=== PATIENT | male | born 1945 | race Caucasian/White ===

== ENCOUNTER 2017-03-02 09:26 | Emergency (ER) | payer OTHER ==
[~2017-03-02 09:26] MED LIST: LISI2.5T3 PO; METO25 PO; PERC10TA27 PO; PRIL10CA PO; SIMV5TAB32 PO; [UNRECOGNIZED DRUG - REMARK]; blood pressure; cholesterol med
[2017-03-02 09:36] VITALS: BP 160/85; PULSE 86; RESP 18; TEMP 98; O2SAT 97
[2017-03-02] MEDS ORDERED: ALBU6.7H INH (09:42)
[2017-03-02] MEDS ORDERED: SIMV10TA PO (09:42)
[2017-03-02] MEDS ORDERED: HYDR25TA5 PO (09:42)
[2017-03-02] MEDS ORDERED: ASPI81CH CHEW (09:42)
[2017-03-02] MEDS ORDERED: METO25TA3 PO (09:42)
[2017-03-02] MEDS ORDERED: SYMB160A INH (09:42)
--- NOTE | 2017-03-02 09:59 | PD ---
HPI Chief Complaint: Back/ Neck Pain or Injury Time Seen by Provider: 09:35 Travel History International Travel<30 days: No Contact w/Intl Traveler<30days: No Traveled to known affect area: No History of Present Illness HPI This patient has chronic back pain for the last 27 years. [facility] and takes oxycodone and morphine at home. He came to the ER because his back pain was aggravating him today. No acute injury. No fever or urinary complaints. Severity is moderate. PFSH Past Medical History Arthritis: Yes Autoimmune Disease: No Blood Disorders: No Heart Rhythm Problems: No Cancer: No Cardiovascular Problems: Yes High Cholesterol: Yes Chest Pain: No Congestive Heart Failure: No COPD: Yes Cerebrovascular Accident: No Diminished Hearing: No (LT EAR) Genitourinary: No Headaches: No Hypertension: Yes Musculoskeletal: No Neurologic: No Psychiatric: No Respiratory: No Myocardial Infarction: No Seizures: No Thyroid Disease: No Tetanus Vaccination: < 5 Years Influenza Vaccination: Yes PNEUMOCCOCAL Vaccine (Year): 2 Past Surgical History Abdominal Surgery: No AICD: No Cardiac Surgery: No Ear Surgery: No Endocrine Surgery: No Eye Surgery: No Genitourinary Surgery: No Gynecologic Surgery: No Oral Surgery: No Pacemaker: No Thoracic Surgery: No Social History Alcohol Use: No Tobacco Use: No Substance Use: No Allergies-Medications (Allergen,Severity, Reaction): Coded Allergies: No Known Allergies (Verified , 03/02/17) Reported Meds & Prescriptions Reported Meds & Active Scripts Active Reported Symbicort Inh (Budesonide/Formoterol Fumarate) 160-4.5 Mcg/Act Aero 1 Puff INH Q12HR Proventil Hfa 6.7 GM Inh (Albuterol Sulfate) 90 Mcg/Act Aer 2 Puff INH Q6H PRN Hydrochlorothiazide 25 Mg Tab 25 Mg PO DAILY Aspirin 81 Mg Chew 81 Mg CHEW DAILY Metoprolol Tartrate 25 Mg Tab Unknown Dose PO DIRECTED Simvastatin 10 Mg Tab 10 Mg PO DAILY Review of Systems General / Constitutional: No: Fever HENT: No: Headaches Cardiovascular: No: Chest Pain or Discomfort Respiratory: No: Cough Musculoskeletal: Positive: Pain Physical Exam Narrative NEUROLOGICAL: Awake and alert. Pupils are equal round and reactive. Motor and sensory grossly within normal limits. Five out of 5 muscle strength in all muscle groups. Normal speech. GASTROINTESTINAL: Abdomen soft, non-tender, nondistended. Positive bowel sounds. No hepato-splenomegaly, or palpable masses. No guarding. Back: Has very advanced kyphosis. No tenderness of the back. Data Data Last Documented VS Vital Signs Date Time Temp Pulse Resp B/P Pulse Ox O2 Delivery O2 Flow Rate FiO2 03/02/17 09:36 98.0 86 18 160/85 97 Room Air Orders Ondansetron Inj (Zofran Inj) (03/02/17 10:00) Morphine Inj (Morphine Inj) (03/02/17 10:00) MDM Medical Decision Making Medical Screen Exam Complete: Yes Emergency Medical Condition: Yes Medical Record Reviewed: Yes Differential Diagnosis Chronic back pain, arthritis, lumbar strain Narrative Course I have reviewed the patient's electronic medical record. Patient has chronic back pain for 27 years and having a flare of that today He gets around with a cane but not well [facility] and has a supply of oxycodone and morphine at home I don't see any acute neurologic deficit There was no injury No red flags to suggest emergent imaging is indicated Sitting in the bed is asymptomatic but gets worse pain when trying to walk I gave him injection of morphine and Zofran brand marketing manager is trying to assist him with a ride home Diagnosis Primary Impression: Chronic back pain greater than 3 months duration Additional Instructions: The patient was advised to follow up with their physician and return if they worsen. Med/Other Pt SpecificInfo: Other Disposition: 01 DISCHARGE HOME Condition: Stable Ji Yao MD March 02, 2017 09:59
[2017-03-02] MEDS ORDERED: MORPHINE SULFATE 4 MG/ML INJ IM ONE (10:00)
[2017-03-02] MEDS ORDERED: ONDANSETRON HCL 4 MG/2 ML VIAL IM ONE (10:00)
[2017-03-02] MEDS ORDERED: TRAM50TA PO (10:02)
== END 2017-03-02 10:18 | disposition home or self-care (01) ==
LOC: PHED 09:26
DX: M54.9 Dorsalgia, unspecified (principal); G89.29 Other chronic pain; I10 Essential (primary) hypertension
CPT/HCPCS: 96372; 99283; J2270; J2405

== ENCOUNTER 2017-07-27 11:49 | Inpatient (IN) | payer OTHER, MEDICARE ==
[~2017-07-27 11:49] MED LIST changes: +ALBU6.7H INH; +ASPI81CH CHEW; +HYDR25TA5 PO; -LISI2.5T3 PO; -METO25 PO; +METO25TA3 PO; -PERC10TA27 PO; -PRIL10CA PO; +SIMV10TA PO; -SIMV5TAB32 PO; +SYMB160A INH; +TRAM50TA PO; -[UNRECOGNIZED DRUG - REMARK]; -blood pressure; -cholesterol med
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
[2017-07-27 12:23] VITALS: BP 148/78; PULSE 82; RESP 18; TEMP 97.7; O2SAT 97
[2017-07-27] MEDS ORDERED: HYDR-3516 PO (12:32)
[2017-07-27 12:58] LABS: GLUCOSE,URINE NEG (NEG); KETONE, URINE NEG (NEG); NITRITE,URINE NEG (NEG)
[2017-07-27 13:01] LABS: BLOOD, URINE TRACE (NEG)
[2017-07-27 13:03] LABS: METHOD OF COLLECTION CATH; URINE COLOR YELLOW (YELLW/STRAW)
[2017-07-27 13:04] LABS: COMMENT (UR) CATH-CULT NOT IND; CULTURE IF INDICATED CATH CULTURE NOT IND; MUCUS URINE FEW /lpf (OCC); RBC, URINE 0-3 /hpf (0-3); SQUAMOUS EPITHELIAL CELL URINE 0-5 /hpf (0-5); WBC, URINE 0-2 /hpf (0-5)
[2017-07-27] MEDS ORDERED: ROBA500T PO (13:14)
[2017-07-27 13:45] LABS: AUTOMATED NEUTROPHIL # 6.6 TH/MM3 (1.8-7.7); BASOPHIL # 0.1 TH/MM3 (0-0.2); BASOPHIL % 0.7 % (0.0-2.0); EOSINOPHIL # 0.2 TH/MM3 (0-0.4); EOSINOPHIL % 2.2 % (0.0-4.0); HEMATOCRIT 43.4 % (39.0-51.0); HEMO FLAGS DIFF FINAL; LYMPH % 11.9 % (9.0-44.0); MEAN CELL VOLUME 92.6 FL (80.0-100.0); MEAN CORPUSCULAR HEMOGLOBIN 30.9 PG (27.0-34.0); MEAN CORPUSCULAR HGB CONC 33.4 % (32.0-36.0); MONO % 10.3 % (0.0-8.0); NEUT % 74.9 % (16.0-70.0); PLATELET COUNT 438 TH/MM3 (150-450); RED BLOOD COUNT 4.69 MIL/MM3 (4.50-5.90); RED CELL DISTRIBUTION WIDTH 11.6 % (11.6-17.2); WHITE BLOOD COUNT 8.8 TH/MM3 (4.0-11.0)
[2017-07-27] MEDS ORDERED: SODIUM CHLORID 0.9% 500 ML INJ 500 ML IV ONE (13:45)
[2017-07-27 14:04] LABS: ALT (GPT) 26 U/L (12-78); ANION GAP 10 MEQ/L (5-15); AST (GOT) 34 U/L (15-37); BICARBONATE 28.6 MEQ/L (21.0-32.0); BLOOD UREA NITROGEN 6 MG/DL (7-18); CHLORIDE 85 MEQ/L (98-107); GLOMERULAR FILTRATION RATE 184 ML/MIN (>89); POTASSIUM 3.1 MEQ/L (3.5-5.1); TOTAL BILIRUBIN ADULT 0.8 MG/DL (0.2-1.0)
[2017-07-27 14:06] LABS: SODIUM (NA) 124 MEQ/L (136-145)
[2017-07-27 14:07] LABS: ALKALINE PHOSPHATASE 116 U/L (45-117)
[2017-07-27 14:27] VITALS: BP_SYST 123; BP_SYST 146; BP_DIAS 75; BP_DIAS 76; RESP 16
--- NOTE | 2017-07-27 15:47 | RADRPT ---
EXAM DATE/TIME: 07/27/2017 14:44 [facility] COMPARISON: No previous studies available for comparison. INDICATIONS : Wheezing, poor oral intake, chronic back pain. MEDICAL HISTORY : Hypercholesterolemia. Hypertension Chronic obstructive pulmonary disease. Arthritis. SURGICAL HISTORY : Bilateral knee surgeries. ENCOUNTER: Initial ACUITY: 3 days PAIN SCORE: 5/10 LOCATION: chest FINDINGS: PA and mild views of the chest show the patient obliqued considerably towards the left. This obscures the left lower lobe. Left lower lobe consolidation is suspected. Areas of consolidation involving th e perihilar distribution of the right lung particularly within the more inferior portions. No discret e effusion. Low lung volumes observed. Mild cardiomegaly. Multiple thoracolumbar compression of forma tion with exaggerated kyphosis and diffuse osteopenia. CONCLUSION: 1. Limited study. 2. Bilateral pulmonary consolidations more pronounced involving the left lower lobe. Altaf Lomas Jr., MD on July 27, 2017 at 15:44 Board Certified Radiologist. This report was verified electronically.
[2017-07-27 16:15] VITALS: BP 135/67
[2017-07-27 16:48] VITALS: BP 134/79; PULSE 98; RESP 18; TEMP 96.6; O2SAT 94
--- NOTE | 2017-07-27 17:32 | HHI.HP ---
[facility] Service [facility] Primary Care Physician Shashi Moon MD Admission Diagnosis hypokalemia, hyponatremia Diagnoses: (1) Hyponatremia Diagnosis: Principal Chief Complaint: Not eating, drinking, more somnolent Travel History International Travel<30 Days: No Contact w/Intl Traveler <30 Da: No Traveled to Known Affected Are: No History of Present Illness Written by Ji Womack, acting as scribe for Dr. Valdez on 07/27/17 at 17:18. 72 year-old male with known history of hypertension chronic back pain , scoliosis, chronic obstructive pulmonary disease, hyperlipidemia, who was brought the hospital by [facility] because family called since the patient has not been his self with not eating, not drinking, decreased appetite, more somnolent. Patient had been in [facility] last week when he felt that he was ready to go home. He told the doctor there that he was going to go home on Tuesday. His ex- came to pick him up on Tuesday without official discharge from the nursing facility. Ever since then, the patient went home and has had worsening symptoms with decreased appetite, not eating, not drinking, more somnolent. [facility] was called by ex- who brought the patient to the ER. Patient had workup done which did find electrolyte abnormalities of hyponatremia, hypokalemia. Patient was given a bolus of IV fluids and the patient became more alert and was doing better. Upon review medical records it appears the patient does have chronic hyponatremia dating back at least 14 years. Is indicated that patient may not have been taking his medications appropriately because of the way he left the jail they're given multiple medications with empty bottles, pill cards without directions. Patient usually walks with walker at all time. However that over the last couple days he is not really getting out of bed. He is on the leg on his left side. Because of the electrolyte abnormalities it was recommended by the ER physician that the patient be admitted the hospital for evaluation Review of Systems Constitutional: COMPLAINS OF: Change in appetite Gastrointestinal: COMPLAINS OF: Constipation Musculoskeletal: COMPLAINS OF: Back pain Except as stated in HPI: all other systems reviewed are Neg Past Family Social History Past Medical History Hypertension Hyperlipidemia Scoliosis Chronic hyponatremia Chronic obstructive pulmonary disease Past Surgical History Left distal femur open reduction internal fixation Left hip open reduction internal fixation Left knee revision repair of patellar tendon avulsion from patella Left knee patellar tendon repair left proximal tibia removal of large screws and washer Right femur fracture open reduction internal fixation Reported Medications Reported Meds & Active Scripts Active Reported Hydrocodone-Acetaminophen 5-325 mg Tab 1 Tab PO Q6H PRN Symbicort Inh (Budesonide/Formoterol Fumarate) 160-4.5 Mcg/Act Aero 1 Puff INH Q12HR Proventil Hfa 6.7 GM Inh (Albuterol Sulfate) 90 Mcg/Act Aer 2 Puff INH Q6H PRN Hydrochlorothiazide 25 Mg Tab 25 Mg PO DAILY Aspirin 81 Mg Chew 81 Mg CHEW DAILY Metoprolol Tartrate 25 Mg Tab Unknown Dose PO DIRECTED Simvastatin 10 Mg Tab 10 Mg PO DAILY Allergies: Coded Allergies: No Known Allergies (Verified , 07/27/17) Family History Reviewed is significant for mother having a stroke Social History Patient quit smoking 40 years ago. Denies any alcohol or illicit drugs Physical Exam Vital Signs Vital Signs Date Time Temp Pulse Resp B/P (MAP) Pulse Ox O2 Delivery O2 Flow Rate FiO2 07/27/17 16:48 96.6 98 18 134/79 (97) 94 07/27/17 16:15 87 16 135/67 (89) 97 07/27/17 14:27 93 16 123/75 (91) 97 16 146/76 (99) 07/27/17 12:23 97.7 82 18 148/78 (101) 97 Physical Exam GENERAL: Well-developed, cachectic, in no acute distress. alert and orientated. Laying on his left side HEENT: Head is normocephalic without any lesions or masses noted. Facial features are symmetric. Eyes: Pupils equal round reactive to light. Extraocular muscles are intact. Conjunctivae were clear. Oropharyngeal: Pharynx without any erythema edema. Tongue is midline without deviation. Buccal mucosa is moist without any masses or lesions NECK: Supple without any masses. Trachea midline no deviation. No JVD, no bruits are appreciated CARDIAC: Regular rhythm, regular rate. S1/S2 are heard. No murmurs gallops or rubs. LUNGS: Clear to auscultation bilaterally. No wheeze, rhonchi or rales. No use of accessory muscles on inspiration or expiration. ABDOMEN: Soft, nontender. Nondistended. Bowel sounds heard in all 4 quadrants. No organomegaly or masses. Negative rebound, negative guarding EXTREMITIES: No edema, pulses are equal bilaterally. No cyanosis or clubbing NEUROLOGY: Mood and affect appear appropriate. Cranial nerves II through XII grossly intact. Muscle strength 5/5 in upper and lower extremities bilaterally. SPINE: Obvious spinal curvature Laboratory Laboratory Tests Test 07/27/17 12:50 07/27/17 13:35 Urine Collection Type CATH Urine Color YELLOW Urine Turbidity CLEAR Urine pH 6.0 Urine Specific [place] 1.013 Urine Protein NEG Urine Glucose (UA) NEG Urine Ketones NEG Urine Occult Blood TRACE Urine Nitrite NEG Urine Bilirubin NEG Urine Leukocyte Esterase NEG Urine RBC 0-3 Urine WBC 0-2 Urine Squamous Epithelial Cells 0-5 Urine Hyaline Casts 10-14 Urine Mucus FEW Microscopic Urinalysis Comment CATH-CULT NOT IND Urine Collection Time 12:540 White Blood Count 8.8 Red Blood Count 4.69 Hemoglobin 14.5 Hematocrit 43.4 Mean Corpuscular Volume 92.6 Mean Corpuscular Hemoglobin 30.9 Mean Corpuscular Hemoglobin Concent 33.4 Red Cell Distribution Width 11.6 Platelet Count 438 Mean Platelet Volume 7.6 Neutrophils (%) (Auto) 74.9 Lymphocytes (%) (Auto) 11.9 Monocytes (%) (Auto) 10.3 Eosinophils (%) (Auto) 2.2 Basophils (%) (Auto) 0.7 Neutrophils # (Auto) 6.6 Lymphocytes # (Auto) 1.0 Monocytes # (Auto) 0.9 Eosinophils # (Auto) 0.2 Basophils # (Auto) 0.1 CBC Comment DIFF FINAL Differential Comment Blood Urea Nitrogen 6 Creatinine 0.45 Random Glucose 111 Total Protein 7.0 Albumin 3.4 Calcium Level 9.7 Alkaline Phosphatase 116 Aspartate Amino Transf (AST/SGOT) 34 Alanine Aminotransferase (ALT/SGPT) 26 Total Bilirubin 0.8 Sodium Level 124 Potassium Level 3.1 Chloride Level 85 Carbon Dioxide Level 28.6 Anion Gap 10 Estimat Glomerular Filtration Rate 184 Result Diagram: 07/27/17 1335 07/27/17 1335 Imaging Last Impressions Chest X-Ray 07/27/17 0000 Signed Impressions: Service Date/Time: Thursday, July 27, 2017 14:44 - CONCLUSION: 1. Limited study. 2. Bilateral pulmonary consolidations more pronounced involving the left lower lobe. MD Lv Antunez Jr. VTE Risk Assessment Caprini VTE Risk Assessment: Mod/High Risk (score >= 2) Caprini Risk Assessment Model Point Value = 1 Point Value = 2 Point Value = 3 Point Value = 5 Age 41-60 Minor surgery BMI > 25 kg/m2 Swollen legs Varicose veins or History of unexplained or recurrent spontaneous Oral contraceptives or hormone replacement Sepsis (< 1 month) Serious lung disease, including pneumonia (< 1 month) Abnormal pulmonary function Acute myocardial infarction Congestive heart failure (< 1 month) History of inflammatory bowel disease Medical patient at bed rest Age 61-74 Arthroscopic surgery Major open surgery (> 45 min) Laparoscopic surgery (> 45 min) Malignancy Confined to bed (> 72 hours) Immobilizing plaster cast Central venous access Age >= 75 History of VTE Family history of VTE Factor V Leiden Prothrombin [id number] Lupus anticoagulant Anticardiolipin antibodies Elevated serum homocysteine Heparin-induced thrombocytopenia Other congenital or acquired thrombophilia Stroke (< 1 month) Elective arthroplasty Hip, pelvis, or leg fracture Acute spinal cord injury (< 1 month) Prophylaxis Regimen Total Risk Factor Score Risk Level Prophylaxis Regimen 0-1 Low Early ambulation 2 Moderate Order ONE of the following: *Sequential Compression Device (SCD) *Heparin 5000 units SQ BID 3-4 Higher Order ONE of the following medications: *Heparin 5000 units SQ TID *Enoxaparin/Lovenox 40 mg SQ daily (WT < 150 kg, CrCl > 30 mL/min) *Enoxaparin/Lovenox 30 mg SQ daily (WT < 150 kg, CrCl > 10-29 mL/min) *Enoxaparin/Lovenox 30 mg SQ BID (WT < 150 kg, CrCl > 30 mL/min) AND/OR *Sequential Compression Device (SCD) 5 or more Highest Order ONE of the following medications: *Heparin 5000 units SQ TID (Preferred with Epidurals) *Enoxaparin/Lovenox 40 mg SQ daily (WT < 150 kg, CrCl > 30 mL/min) *Enoxaparin/Lovenox 30 mg SQ daily (WT < 150 kg, CrCl > 10-29 mL/min) *Enoxaparin/Lovenox 30 mg SQ BID (WT < 150 kg, CrCl > 30 mL/min) AND *Sequential Compression Device (SCD) Assessment and Plan Assessment and Plan Electrolyte abnormalities with hyponatremia, hypokalemia, chronic Multifactorial with poor by mouth intake, HCTZ use We'll hold HCTZ at this time, Continue IV fluids Continue follow sodium level, potassium level Hypertension, hyperlipidemia Continue home medications Chronic back pain Continue home medication Chronic obstructive pulmonary disease Continue O2 supplementation to maintain O2 sats greater 92% Duo nebs as needed DVT prevention Subcutaneous Lovenox This note was transcribed by campbell Womack. IVincenzo, personally performed the history, physical exam, and medical decision making; and confirmed the accuracy of information in the transcribed note. Authenticated by Vincenzo Valdez at 19:13 on 07/27/17. Physician Certification 2 Midnight Certification Type: Admission for Inpatient Services Order for Inpatient Services The services are ordered in accordance with Medicare regulations or non- Medicare payer requirements, as applicable. In the case of services not specified as inpatient-only, they are appropriately provided as inpatient services in accordance with the 2-midnight benchmark. Estimated LOS (days): 2 days is the estimated time the patient will need to remain in the hospital, assuming treatment plan goals are met and no additional complications. Post-Hospital Plan: Not yet determined Ji Womack Jul 27, 2017 17:32 Vincenzo Valdez MD Jul 27, 2017 19:13
[2017-07-27] MEDS ORDERED: ALBUTEROL SULFATE 90 MCG/ACT HFA 8 GM INHALER INH PRN (18:15)
[2017-07-27] MEDS ORDERED: NS + KCL 20 MEQ INJ 1,000 ML IV SCH (18:30)
[2017-07-27] MEDS ORDERED: MAGNESIUM HYDROXIDE SUSP 30 ML CUP PO PRN (18:30)
[2017-07-27] MEDS ORDERED: RESP: ALBUTEROL 2.5 MG/IPRATROPIUM 0.5 MG NEB (PRN) NEB (18:30)
[2017-07-27] MEDS ORDERED: DOCUSATE SODIUM 100 MG CAP PO PRN (18:30)
[2017-07-27] MEDS ORDERED: POTASSIUM CHLORIDE 20 MEQ CONTROLLED RELEASE TAB PO ONE (18:30)
[2017-07-27] MEDS ORDERED: ONDANSETRON HCL 4 MG/2 ML VIAL IV PUSH PRN (18:30)
[2017-07-27] MEDS ORDERED: ALUMINUM/MAGNESIUM/SIMETH 30 ML CUP PO PRN (18:30)
[2017-07-27] MEDS ORDERED: ACETAMINOPHEN 325 MG TAB PO PRN (18:30)
[2017-07-27] MEDS: ACETAMINOPHEN/HYDROcodone 325 MG/5 MG TAB PO PRN (19:05)
[2017-07-27 20:00] VITALS: BP_SYST 127; BP_SYST 137; BP_DIAS 66; BP_DIAS 79; PULSE 61; PULSE 97; RESP 18; RESP 20; TEMP 97; O2SAT 98
[2017-07-27 22:00] VITALS: PULSE 96
[2017-07-27] MEDS: ENOXAPARIN SODIUM 40 MG/0.4 ML SYRINGE SQ SCH (22:50)
[2017-07-27] MEDS: BUDESONIDE-FORMOTEROL 160/4.5 MCG INHALER INH SCH (23:22)
[2017-07-28] VITALS: BP_SYST 117; BP_SYST 147; BP_DIAS 67; BP_DIAS 88; PULSE 102; PULSE 63; RESP 20; TEMP 96.2; TEMP 97.5; O2SAT 96; O2SAT 97
[2017-07-28] MEDS: TEMAZEPAM 15 MG CAP PO PRN ×2 (00:50→22:52)
[2017-07-28] MEDS: ACETAMINOPHEN/HYDROcodone 325 MG/5 MG TAB PO PRN ×3 (00:50→21:37)
[2017-07-28 04:23] VITALS: BP 138/86; PULSE 95; RESP 23; TEMP 96.2; O2SAT 92
[2017-07-28 08:13] LABS: POTASSIUM 3.3 MEQ/L (3.5-5.1)
[2017-07-28 08:20] LABS: BICARBONATE 25.4 MEQ/L (21.0-32.0); MAGNESIUM 1.5 MG/DL (1.5-2.5)
[2017-07-28 08:40] VITALS: BP 150/80; PULSE 93; RESP 20; TEMP 98.2; O2SAT 98
[2017-07-28 08:45] LABS: AUTOMATED NEUTROPHIL # 4.5 TH/MM3 (1.8-7.7); BASOPHIL % 0.6 % (0.0-2.0); EOSINOPHIL # 0.4 TH/MM3 (0-0.4); EOSINOPHIL % 5.5 % (0.0-4.0); HEMATOCRIT 39.5 % (39.0-51.0); HEMO FLAGS DIFF FINAL; LYMPH % 18.1 % (9.0-44.0); LYMPHOCYTE # 1.3 TH/MM3 (1.0-4.8); MEAN CELL VOLUME 94.4 FL (80.0-100.0); MEAN CORPUSCULAR HEMOGLOBIN 31.6 PG (27.0-34.0); MEAN CORPUSCULAR HGB CONC 33.5 % (32.0-36.0); NEUT % 64.8 % (16.0-70.0); PLATELET COUNT 406 TH/MM3 (150-450); RED BLOOD COUNT 4.18 MIL/MM3 (4.50-5.90); RED CELL DISTRIBUTION WIDTH 12.1 % (11.6-17.2)
[2017-07-28] MEDS: BUDESONIDE-FORMOTEROL 160/4.5 MCG INHALER INH SCH ×2 (09:00→21:36)
[2017-07-28] MEDS: ASPIRIN 81 MG CHEW TAB CHEW SCH (09:44)
[2017-07-28] MEDS: PRAVASTATIN SOD 20 MG TAB PO SCH (09:44)
[2017-07-28 12:00] VITALS: BP 158/78; PULSE 94; RESP 18; TEMP 97.6; O2SAT 94
--- NOTE | 2017-07-28 12:25 | EKG ---
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
[2017-07-28 16:00] VITALS: BP 150/72; PULSE 92; RESP 18; TEMP 98.2; O2SAT 92
--- NOTE | 2017-07-28 16:44 | HHI.PR ---
Subjective Remarks No deteriorations noted overnight. Spoke with case management, patient will need a home care order if he does go home given his debilities. Patient says he feels okay today, his sodium manjeet by 2 units today. Objective Vital Signs Date Time Temp Pulse Resp B/P (MAP) Pulse Ox O2 Delivery O2 Flow Rate FiO2 07/28/17 12:00 97.6 94 18 158/78 (104) 94 07/28/17 11:05 18 07/28/17 08:40 98.2 93 20 150/80 (103) 98 07/28/17 04:23 96.2 95 23 138/86 (103) 92 07/28/17 00:00 96.2 102 20 147/88 (107) 96 07/27/17 22:00 96 07/27/17 20:00 97.0 97 18 137/66 (89) 98 07/27/17 16:48 96.6 98 18 134/79 (97) 94 I/O 07/27/17 07/27/17 07/27/17 07/28/17 07/28/17 07/28/17 06:59 14:59 22:59 06:59 14:59 22:59 Intake Total 360 ml 500 ml 850 ml Output Total 150 ml 650 ml Balance 210 ml 500 ml 200 ml Intake Oral 360 ml IV Total 500 ml 850 ml Output Urine Total 150 ml 650 ml Bladder Scan Volume Amount 425 ml 425 ml # Voids 1 1 # Bowel Movements 1 2 1 Result Diagram: 07/28/17 0730 07/28/17 0730 Objective Remarks Awake, alert, lying in bed Unlabored breathing, no signs of facial droop or somnolence or lethargy A/P Assessment and Plan Electrolyte abnormalities with hyponatremia, hypokalemia, chronic Multifactorial with poor by mouth intake, HCTZ use We'll hold HCTZ at this time, Perform fluid restriction slightly improved by 2 units, trend in AM, nearing baseline Hypertension, hyperlipidemia Continue home medications Chronic back pain Continue home medication, ordering PT/OT Chronic obstructive pulmonary disease Continue O2 supplementation to maintain O2 sats greater 92% Duo nebs as needed Debility 2/2 scoliosis PT/OT ordered, will likely need SNF placement DVT prevention Subcutaneous Lovenox Vincenzo Valdez MD Jul 28, 2017 16:44
[2017-07-28 20:00] VITALS: BP 144/92; PULSE 90; RESP 20; TEMP 97.8; O2SAT 94
[2017-07-28] MEDS: ENOXAPARIN SODIUM 40 MG/0.4 ML SYRINGE SQ SCH (21:37)
[2017-07-29] VITALS: BP 130/65; PULSE 93; RESP 20; TEMP 98.9; O2SAT 96
[2017-07-29 04:00] VITALS: BP 149/73; PULSE 88; RESP 20; TEMP 98.3; O2SAT 93
[2017-07-29] MEDS: ACETAMINOPHEN/HYDROcodone 325 MG/5 MG TAB PO PRN ×2 (04:19→11:04)
[2017-07-29 08:59] VITALS: BP 126/73; PULSE 80; RESP 20; TEMP 97.2; O2SAT 100
[2017-07-29] MEDS: PRAVASTATIN SOD 20 MG TAB PO SCH (09:00)
[2017-07-29] MEDS: BUDESONIDE-FORMOTEROL 160/4.5 MCG INHALER INH SCH (09:00)
[2017-07-29 09:51] LABS: MAGNESIUM 1.5 MG/DL (1.5-2.5)
[2017-07-29 10:45] LABS: POTASSIUM 2.9 MEQ/L (3.5-5.1)
[2017-07-29] MEDS: ASPIRIN 81 MG CHEW TAB CHEW SCH (11:04)
[2017-07-29] MEDS: POTASSIUM CHLOR 20 MEQ PREMIX 100 ML IV SCH ×2 (11:30→13:30)
[2017-07-29] MEDS ORDERED: POTASSIUM CHLORIDE 10 MEQ CONTROLLED RELEASE TAB PO ONE (11:30)
[2017-07-29 12:00] VITALS: BP 142/78; PULSE 92; RESP 20; TEMP 97.8; O2SAT 93
[2017-07-29 16:00] VITALS: BP 111/56; PULSE 101; RESP 18; TEMP 98.1; O2SAT 95
[2017-07-29] MEDS ORDERED: HYDR-3516 PO (16:54)
[2017-07-29] MEDS ORDERED: METO25TA3 PO (16:54)
[2017-07-29] MEDS ORDERED: POTA-163 PO (16:56)
--- NOTE | 2017-07-29 16:57 | HHI.DS ---
Discharge Summary Admission Date Jul 27, 2017 at 14:51 Discharge Date: Jul 29, 2017 Admitting Diagnosis hypokalemia, hyponatremia (1) Hyponatremia ICD Code: E87.1 - Hypo-osmolality and hyponatremia Diagnosis: Principal Status: Acute Procedures none Brief History - From Admission Written by Ji Womack, acting as scribe for Dr. Valdez on 07/27/17 at 17:18. 72 year-old male with known history of hypertension chronic back pain , scoliosis, chronic obstructive pulmonary disease, hyperlipidemia, who was brought the hospital by [facility] because family called since the patient has not been his self with not eating, not drinking, decreased appetite, more somnolent. Patient had been in [facility] last week when he felt that he was ready to go home. He told the doctor there that he was going to go home on Tuesday. His ex- came to pick him up on Tuesday without official discharge from the nursing facility. Ever since then, the patient went home and has had worsening symptoms with decreased appetite, not eating, not drinking, more somnolent. [facility] was called by ex- who brought the patient to the ER. Patient had workup done which did find electrolyte abnormalities of hyponatremia, hypokalemia. Patient was given a bolus of IV fluids and the patient became more alert and was doing better. Upon review medical records it appears the patient does have chronic hyponatremia dating back at least 14 years. Is indicated that patient may not have been taking his medications appropriately because of the way he left the [facility] they're given multiple medications with empty bottles, pill cards without directions. Patient usually walks with walker at all time. However that over the last couple days he is not really getting out of bed. He is on the leg on his left side. Because of the electrolyte abnormalities it was recommended by the ER physician that the patient be admitted the hospital for evaluation CBC/BMP: 07/28/17 0730 07/29/17 0835 Significant Findings Laboratory Tests Test 07/27/17 12:50 07/27/17 13:35 07/28/17 07:30 07/29/17 08:35 Urine Occult Blood TRACE (NEG) Urine Hyaline Casts 10-14 /lpf (RARE) Urine Mucus FEW /lpf (OCC) Neutrophils (%) (Auto) 74.9 % (16.0-70.0) Monocytes (%) (Auto) 10.3 % (0.0-8.0) 11.0 % (0.0-8.0) Blood Urea Nitrogen 6 MG/DL (7-18) 5 MG/DL (7-18) 4 MG/DL (7-18) Creatinine 0.45 MG/DL (0.60-1.30) 0.37 MG/DL (0.60-1.30) 0.33 MG/DL (0.60-1.30) Random Glucose 111 MG/DL (74-106) Sodium Level 124 MEQ/L (136-145) 126 MEQ/L (136-145) 130 MEQ/L (136-145) Potassium Level 3.1 MEQ/L (3.5-5.1) 3.3 MEQ/L (3.5-5.1) 2.9 MEQ/L (3.5-5.1) Chloride Level 85 MEQ/L (98-107) 91 MEQ/L (98-107) 93 MEQ/L (98-107) Red Blood Count 4.18 MIL/MM3 (4.50-5.90) Eosinophils (%) (Auto) 5.5 % (0.0-4.0) PE at Discharge Lying in bed, no acute distress, awake, alert, unlabored breathing Hospital Course Patient was admitted and started on treatment for hyponatremia. He was eventually placed on fluid restrictions which significantly helped his sodium levels stabilize. Patient's overall level of strength had improved significantly and was deemed clinically stable for discharge back to rehabilitation facility. He was counseled on avoiding a premature voluntary departure from the rehabilitation facility which he had done just prior to this hospitalization. Patient will need to have his electrolytes checked in 2 days after discharge to monitor for hypokalemia and hyponatremia. It was noted after discharge that the patient's EKG had new findings with T-wave inversions. During his hospitalization, there were no reports of any chest pain and he did work with physical therapy and occupational therapy with no reports of any stable or unstable angina. His hospitalization course along with his EKG findings were discussed with Dr. Gautam at [facility] who stated that he would relay these findings to his covering colleague practitioners that were caring for the patient. I recommended to him that the patient may undergo an outpatient stress test if there was any concern of any angina to come about. Pt Condition on Discharge: Stable Discharge Disposition: Discharge to SNF Discharge Time: > 30 minutes Discharge Instructions DIET: Follow Instructions for: As Tolerated, No Restrictions, Low Sodium Diet Additional Diet Instructions: FLUID RESTRICTION to 1500 mL daily Activities you can perform: See Additionl Instruction Other Activity Instructions: per PT assessment/recommendations Follow up Referrals: PCP Follow-up - 2 Weeks New Medications: Potassium Chloride ER (Potassium Chloride ER) 20 Meq Tab 20 MEQ PO BID for Electrolyte Replacement, #60 TAB 0 Refills Changed Medications: Metoprolol Tartrate (Metoprolol Tartrate) 25 Mg Tab 1 TAB PO BID for blood pressure, #60 TAB 0 Refills (Changed from: Unknown Dose ; DIRECTED) Continued Medications: Albuterol 6.7 GM Inh (Proventil Hfa 6.7 GM Inh) 90 Mcg/Act Aer 2 PUFF INH Q6H PRN for SHORTNESS OF BREATH, #1 INHALER 0 Refills Aspirin (Aspirin) 81 Mg Chew 81 MG CHEW DAILY, TAB 0 Refills Budesonide-Formoterol Inh (Symbicort Inh) 160-4.5 Mcg/Act Aero 1 PUFF INH Q12HR, #1 INHALER 0 Refills Hydrocodone-Acetaminophen (Hydrocodone-Acetaminophen) 5-325 mg Tab 1 TAB PO Q6H PRN for PAIN, #60 TAB 0 Refills (This prescription has been renewed ) Simvastatin (Simvastatin) 10 Mg Tab 10 MG PO DAILY for Cholesterol Management, #30 TAB 0 Refills Vincenzo Valdez MD Jul 29, 2017 16:57
== END 2017-07-29 18:40 | DRG 641 ==
LOC: PHEFT 11:49 → PHEDA 14:51 → PH3A 16:26
PROVIDERS: ADMIT Hospitalist; ATTEND Hospitalist
DX: E87.1 Hypo-osmolality and hyponatremia (principal); R64 Cachexia; J44.9 Chronic obstructive pulmonary disease, unspecified; M41.9 Scoliosis, unspecified; G89.29 Other chronic pain; M54.5 Low back pain; I10 Essential (primary) hypertension; E87.6 Hypokalemia; E78.5 Hyperlipidemia, unspecified; E78.00 Pure hypercholesterolemia, unspecified; Z79.82 Long term (current) use of aspirin; Z87.891 Personal history of nicotine dependence
CPT/HCPCS: 71020; 80048; 80053; 81001; 83735; 85025; 93005; 94150; 96360; J1650; J3480; J7040; P9612

== ENCOUNTER 2018-01-13 05:40 | Inpatient (IN) | payer OTHER, MEDICARE ==
[2018-01-13] VITALS (43 sets, daily range): BP systolic 62–140; BP diastolic 36–102; PULSE 74–112; RESP 14–43; TEMP 96.7–99.4; O2SAT 76–100
[~2018-01-13] VITALS: Ht 180.3 cm; Wt 77.1 kg
[~2018-01-13 05:40] MED LIST changes: +ASPI-516 CHEW; -ASPI81CH CHEW; +HYDR-3516 PO; -HYDR25TA5 PO; +POTA-163 PO; -TRAM50TA PO
[2018-01-13] MEDS ORDERED: SODIUM CHLOR 0.9% 1000 ML INJ 1,000 ML IV SCH ×4 (05:45→08:00)
[2018-01-13] MEDS ORDERED: ONDANSETRON HCL 4 MG/2 ML VIAL IV ONE (05:45)
[2018-01-13] MEDS ORDERED: SODIUM CHLORIDE 0.9% FLUSH 10 ML FLUSH IV FLUSH PRN (06:00)
[2018-01-13] MEDS ORDERED: FAMOTIDINE 20 MG/2 ML VIAL IV PUSH ONE (07:00)
[2018-01-13] MEDS ORDERED: PANTOPRAZOLE SODIUM 40 MG VIAL IVP ONE (07:00)
[2018-01-13 07:04] LABS: BASOPHIL % 0.3 % (0.0-2.0); EOSINOPHIL # 0.1 TH/MM3 (0-0.4); EOSINOPHIL % 0.9 % (0.0-4.0); HEMATOCRIT 23.3 % (39.0-51.0); HEMOGLOBIN 8.2 GM/DL (13.0-17.0); LYMPH % 7.2 % (9.0-44.0); LYMPHOCYTE # 0.7 TH/MM3 (1.0-4.8); MEAN CORPUSCULAR HEMOGLOBIN 32.2 PG (27.0-34.0); MEAN PLATELET VOLUME 7.1 FL (7.0-11.0); MONO % 5.9 % (0.0-8.0); MONOCYTE # 0.5 TH/MM3 (0-0.9); NEUT % 85.7 % (16.0-70.0); PLATELET COUNT 351 TH/MM3 (150-450); RED BLOOD COUNT 2.53 MIL/MM3 (4.50-5.90); RED CELL DISTRIBUTION WIDTH 13.2 % (11.6-17.2); WHITE BLOOD COUNT 9.3 TH/MM3 (4.0-11.0)
--- NOTE | 2018-01-13 07:04 | PD ---
HPI Chief Complaint: Lethargic Time Seen by Provider: 05:43 Travel History International Travel<30 days: No Contact w/Intl Traveler<30days: No Traveled to known affect area: No History of Present Illness HPI The patient is a 72-year-old male whose called the ambulance, he has apparently had diarrhea for several days and would not go to the doctor. He is normally followed by the [facility] and he is a patient of Dr. Shashi Moon. The , after deliberating a while, thought he was a full code. I discussed directly this with the . The patient was too confused to ask this question. The patient had been confused and very weak at home. The patient had a blood glucose in the field of 172 and his pressure in the field was 80 systolic. The patient here in the emergency department had an 84 systolic blood pressure. He got 250 cc in the field bolus. PFSH Past Medical History Arthritis: Yes Autoimmune Disease: No Blood Disorders: No Heart Rhythm Problems: No Cancer: No Cardiovascular Problems: Yes (HTN) High Cholesterol: Yes Chest Pain: No Congestive Heart Failure: No COPD: Yes Cerebrovascular Accident: No Diminished Hearing: Yes Genitourinary: No Headaches: No Hypertension: Yes Musculoskeletal: Yes Neurologic: No Psychiatric: No Reproductive: No Respiratory: Yes Myocardial Infarction: No Seizures: No Thyroid Disease: No PNEUMOCCOCAL Vaccine (Year): 2 Past Surgical History Abdominal Surgery: No AICD: No Cardiac Surgery: No Ear Surgery: No Endocrine Surgery: No Eye Surgery: No Genitourinary Surgery: No Gynecologic Surgery: No Oral Surgery: No Pacemaker: No Thoracic Surgery: No Social History Alcohol Use: No Tobacco Use: No Substance Use: No Allergies-Medications (Allergen,Severity, Reaction): Coded Allergies: No Known Allergies (Verified , 07/27/17) Reported Meds & Prescriptions Reported Meds & Active Scripts Active Potassium Chloride ER (Potassium Chloride) 20 Meq Tab 20 Meq PO BID Hydrocodone-Acetaminophen 5-325 mg Tab 1 Tab PO Q6H PRN Metoprolol Tartrate 25 Mg Tab 1 Tab PO BID Reported Symbicort Inh (Budesonide/Formoterol Fumarate) 160-4.5 Mcg/Act Aero 1 Puff INH Q12HR Proventil Hfa 6.7 GM Inh (Albuterol Sulfate) 90 Mcg/Act Aer 2 Puff INH Q6H PRN Aspirin 81 Mg Chew 81 Mg CHEW DAILY Simvastatin 10 Mg Tab 10 Mg PO DAILY Review of Systems ROS Limitations: Clinical Condition, Poor Historian Except as stated in HPI: all other systems reviewed are Neg Physical Exam Narrative GENERAL: The patient is pale but warm, rectal temp is 99.4, 80 systolic blood pressure with a pulse rate of 70. His oximetry is 84% on room air. SKIN: Focused skin assessment warm/dry. The skin is covered with feces. HEAD: Atraumatic. Normocephalic. EYES: Pupils equal and round. No scleral icterus. No injection or drainage. ENT: No nasal bleeding or discharge. Mucous membranes pink and moist. NECK: Trachea midline. No JVD. There is no meningismus. CARDIOVASCULAR: Regular rate and rhythm. No murmur appreciated. RESPIRATORY: No accessory muscle use. Clear to auscultation. Breath sounds equal bilaterally. GASTROINTESTINAL: Abdomen soft, non-tender, nondistended. Hepatic and splenic margins not palpable. MUSCULOSKELETAL: No obvious deformities. No clubbing. No cyanosis. No edema. NEUROLOGICAL: Awake and alert. No obvious cranial nerve deficits. Motor grossly within normal limits. Initially garbled and almost unintelligible speech.The patient can talk, later on he could talk much more and even answer questions. He does move all 4 extremities. He is confused. PSYCHIATRIC: The patient is confused, judgment poor Data Data Orders Orders Sodium Chlor 0.9% 1000 Ml Inj (Ns 1000 M (01/13/18 05:45) Ondansetron Inj (Zofran Inj) (01/13/18 05:45) Electrocardiogram (01/13/18 05:57) Ammonia (01/13/18 05:57) Complete Blood Count With Diff (01/13/18 05:57) Comprehensive Metabolic Panel (01/13/18 05:57) Creatine Kinase (Cpk) (01/13/18 05:57) Prothrombin Time / Inr (Pt) (01/13/18 05:57) Act Partial Throm Time (Ptt) (01/13/18 05:57) Troponin I (01/13/18 05:57) Thyroid Stimulating Hormone (01/13/18 05:57) Urinalysis - C+S If Indicated (01/13/18 05:57) Blood Glucose (01/13/18 05:57) Ecg Monitoring (01/13/18 05:57) Iv Access Insert/Monitor (01/13/18 05:57) Oximetry (01/13/18 05:57) Sodium Chloride 0.9% Flush (Ns Flush) (01/13/18 06:00) Sodium Chlor 0.9% 1000 Ml Inj (Ns 1000 M (01/13/18 05:57) Sodium Chlor 0.9% 1000 Ml Inj (Ns 1000 M (01/13/18 06:00) B-Type Natriuretic Peptide (01/13/18 05:57) Arterial Blood Gas (Abg) (01/13/18 05:55) Red Blood Cells (Rbc) (01/13/18 06:51) Blood Product Administration (01/13/18 06:51) Pantoprazole Inj (Protonix Inj) (01/13/18 07:00) Sodium Chlorid 0.9%... W/Octreotide Inj (01/13/18 06:51) Famotidine Inj (Pepcid Inj) (01/13/18 07:00) Type And Screen (01/13/18 06:51) Lactic Acid Sepsis Protocol (01/13/18 06:58) Blood Culture (01/13/18 06:58) Labs Laboratory Tests Test 01/13/18 05:55 01/13/18 06:50 Blood Gas Puncture Site RT FEMORAL Blood Gas Patient Temperature 98.6 Blood Gas HCO3 33 mmol/L Blood Gas Base Excess 8.3 mmol/L Blood Gas Oxygen Saturation 98 % Arterial Blood pH 7.46 Arterial Blood Partial Pressure CO2 47 mmHG Arterial Blood Partial Pressure O2 376 mmHG Arterial Blood Oxygen Content 12.3 Vol % Arterial Blood Carboxyhemoglobin 1.9 % Arterial Blood Methemoglobin 0.9 % Blood Gas Hemoglobin 8.3 G/DL Oxygen Delivery Device NONREBREATHER MASK Blood Gas Liter Flow 15 L/M White Blood Count 9.3 TH/MM3 Red Blood Count 2.53 MIL/MM3 Hemoglobin 8.2 GM/DL Hematocrit 23.3 % Mean Corpuscular Volume 92.0 FL Mean Corpuscular Hemoglobin 32.2 PG Mean Corpuscular Hemoglobin Concent 35.0 % Red Cell Distribution Width 13.2 % Platelet Count 351 TH/MM3 Mean Platelet Volume 7.1 FL Neutrophils (%) (Auto) 85.7 % Lymphocytes (%) (Auto) 7.2 % Monocytes (%) (Auto) 5.9 % Eosinophils (%) (Auto) 0.9 % Basophils (%) (Auto) 0.3 % Neutrophils # (Auto) 8.0 TH/MM3 Lymphocytes # (Auto) 0.7 TH/MM3 Monocytes # (Auto) 0.5 TH/MM3 Eosinophils # (Auto) 0.1 TH/MM3 Basophils # (Auto) 0.0 TH/MM3 CBC Comment DIFF FINAL Differential Comment MDM Medical Decision Making Medical Screen Exam Complete: Yes Emergency Medical Condition: Yes Medical Record Reviewed: Yes Interpretation(s) The CBC shows a white count of 9300 with hemoglobin of 8.2 and hematocrit of 23.3. There are 86% neutrophils. The blood gas shows pH 7.46, CO2 47, PO2 376 on nonrebreather mask with a hemoglobin of 8.3. Differential Diagnosis Dehydration, upper gastrointestinal bleed, electrolyte disorder, anemia Narrative Course The patient has now had 1500 cc of saline. His blood pressure has now normalized. He is much more alert. He is still confused. This is probably his baseline mentation. The nuclear instructor was consulted and Dr. Lomas came promptly here to the emergency department and saw the patient. Diagnosis Primary Impression: Upper GI bleed Additional Impressions: Anemia Dehydration Admitting Information Admitting Physician Requests: Admit Michael Womack MD Jan 13, 2018 07:04
[2018-01-13 07:25] LABS: ALBUMIN 2.3 GM/DL (3.4-5.0); BICARBONATE 35.2 MEQ/L (21.0-32.0); CALCIUM 7.2 MG/DL (8.5-10.1); CALCIUM-PROTEIN CORRECTED 8.7 MG/DL (8.5-10.1); CREATININE 0.88 MG/DL (0.60-1.30); TOTAL BILIRUBIN ADULT 0.4 MG/DL (0.2-1.0); TOTAL PROTEIN 4.4 GM/DL (6.4-8.2); TROPONIN I 0.05 NG/ML (0.02-0.05)
--- NOTE | 2018-01-13 07:28 | HHI.HP ---
[facility] Service Critical Care Medicine Primary Care Physician Shashi Moon MD Admission Diagnosis Diagnosis: Chief Complaint: altered mental satus Travel History International Travel<30 Days: No Contact w/Intl Traveler <30 Da: No Traveled to Known Affected Are: No History of Present Illness This is a 72yM with a reported history of COPD and osteogenesis imperfecta who presents for acute altered mental status and dark tarry stools. when he arrived , he was obtunded and so no additional information is available from him. His ex - who lives with him as well as his son are at bedside and provide most of the history. they state that [facility] his multiple prior fractures that he has, and since that time, he has had a slow decline over the last week. about 1-2 days ago, his ex- noticed him having new dark black tarry stools. yesterday he was somewhat altered and confused, and she tried to get him to seek medical attention, but today he was more altered. He does have a remote history of etoh abuse, but they deny any etoh at all in many years. Of note, his ex- did state that at the [facility] last week, they said his sodium was very low, although she does not know how low it was. In the emergency department, he was initially hypotensive and given 2L NS ivf which improved his blood pressure. His hgb is 8.2. the last hgb we have is from 07/2017 when it was 13. He also had a large melanic bowel movement in the emergency department. His sodium is 114 and K 2.7 on initial BMP. Critical care medicine is consulted to evaluate and manage his acute encephalopathy, his severe metabolic derangements, and his GI bleeding. ROS is unobtainable due to his mental status. Review of Systems ROS Limitations: Clinical Condition, Altered Mental Status Past Family Social History Allergies: Coded Allergies: No Known Allergies (Verified , 07/27/17) Past Medical History Hypertension Hyperlipidemia Scoliosis Chronic hyponatremia Chronic obstructive pulmonary disease Osteogenesis imperfecta Past Surgical History Left distal femur open reduction internal fixation Left hip open reduction internal fixation Left knee revision repair of patellar tendon avulsion from patella Left knee patellar tendon repair left proximal tibia removal of large screws and washer Right femur fracture open reduction internal fixation Reported Medications Potassium Chloride ER (Potassium Chloride) 20 Meq Tab 20 Meq PO BID Hydrocodone-Acetaminophen 5-325 mg Tab 1 Tab PO Q6H PRN Metoprolol Tartrate 25 Mg Tab 1 Tab PO BID Symbicort Inh (Budesonide/Formoterol Fumarate) 160-4.5 Mcg/Act Aero 1 Puff INH Q12HR Proventil Hfa 6.7 GM Inh (Albuterol Sulfate) 90 Mcg/Act Aer 2 Puff INH Q6H PRN Aspirin 81 Mg Chew 81 Mg CHEW DAILY Simvastatin 10 Mg Tab 10 Mg PO DAILY Active Ordered Medications See MAR Family History osteogenesis imperfecta Social History Reported Medications Reported Meds & Active Scripts Patient quit smoking 40 years ago. prior heavy drinker, but no etoh in many years. Physical Exam Vital Signs Vital Signs Date Time Temp Pulse Resp B/P (MAP) Pulse Ox O2 Delivery O2 Flow Rate FiO2 01/13/18 05:45 87 12 84 Non-Rebreather 01/13/18 05:40 99.4 77/53 (61) Physical Exam gen: elderly male, lying in bed, altered, in distress. the bedsheets still have evidence of large melanic stool. heent: nc. at. perrl. mucous membranes moist. sclerae very pale. neck: trachea midline. no jvd. chest: equal chest rise. 2L o2 by nc. barrel chest noted. cv: normal rate, regular rhythm. sinus in the 90s. abd: soft, nontender, nondistended. no guarding. extr: cool with delayed cap refill. no edema. no clubbing. distal pulses 1+. neuro: RASS -2. CAM+. confused. oriented to person only. briskly purposeful, but does not follow commands. Laboratory Laboratory Tests Test 01/13/18 05:55 01/13/18 06:50 Blood Gas Puncture Site RT FEMORAL Blood Gas Patient Temperature 98.6 Blood Gas HCO3 33 Blood Gas Base Excess 8.3 Blood Gas Oxygen Saturation 98 Arterial Blood pH 7.46 Arterial Blood Partial Pressure CO2 47 Arterial Blood Partial Pressure O2 376 Arterial Blood Oxygen Content 12.3 Arterial Blood Carboxyhemoglobin 1.9 Arterial Blood Methemoglobin 0.9 Blood Gas Hemoglobin 8.3 Oxygen Delivery Device NONREBREATHER MASK Blood Gas Liter Flow 15 White Blood Count 9.3 Red Blood Count 2.53 Hemoglobin 8.2 Hematocrit 23.3 Mean Corpuscular Volume 92.0 Mean Corpuscular Hemoglobin 32.2 Mean Corpuscular Hemoglobin Concent 35.0 Red Cell Distribution Width 13.2 Platelet Count 351 Mean Platelet Volume 7.1 Neutrophils (%) (Auto) 85.7 Lymphocytes (%) (Auto) 7.2 Monocytes (%) (Auto) 5.9 Eosinophils (%) (Auto) 0.9 Basophils (%) (Auto) 0.3 Neutrophils # (Auto) 8.0 Lymphocytes # (Auto) 0.7 Monocytes # (Auto) 0.5 Eosinophils # (Auto) 0.1 Basophils # (Auto) 0.0 CBC Comment DIFF FINAL Differential Comment Ammonia 13 Date/Time Source Procedure Growth Status 01/13/18 07:05 Blood Peripheral Aerobic Blood Culture Pending Received 01/13/18 07:05 Blood Peripheral Anaerobic Blood Culture Pending Received Result Diagram: 01/13/18 0650 Caprini VTE Risk Assessment Caprini VTE Risk Assessment: Mod/High Risk (score >= 2) VTE Pharm Contraindication: Active bleeding Caprini Risk Assessment Model Point Value = 1 Point Value = 2 Point Value = 3 Point Value = 5 Age 41-60 Minor surgery BMI > 25 kg/m2 Swollen legs Varicose veins or History of unexplained or recurrent spontaneous Oral contraceptives or hormone replacement Sepsis (< 1 month) Serious lung disease, including pneumonia (< 1 month) Abnormal pulmonary function Acute myocardial infarction Congestive heart failure (< 1 month) History of inflammatory bowel disease Medical patient at bed rest Age 61-74 Arthroscopic surgery Major open surgery (> 45 min) Laparoscopic surgery (> 45 min) Malignancy Confined to bed (> 72 hours) Immobilizing plaster cast Central venous access Age >= 75 History of VTE Family history of VTE Factor V Leiden Prothrombin [id number] Lupus anticoagulant Anticardiolipin antibodies Elevated serum homocysteine Heparin-induced thrombocytopenia Other congenital or acquired thrombophilia Stroke (< 1 month) Elective arthroplasty Hip, pelvis, or leg fracture Acute spinal cord injury (< 1 month) Prophylaxis Regimen Total Risk Factor Score Risk Level Prophylaxis Regimen 0-1 Low Early ambulation 2 Moderate Order ONE of the following: *Sequential Compression Device (SCD) *Heparin 5000 units SQ BID 3-4 Higher Order ONE of the following medications: *Heparin 5000 units SQ TID *Enoxaparin/Lovenox 40 mg SQ daily (WT < 150 kg, CrCl > 30 mL/min) *Enoxaparin/Lovenox 30 mg SQ daily (WT < 150 kg, CrCl > 10-29 mL/min) *Enoxaparin/Lovenox 30 mg SQ BID (WT < 150 kg, CrCl > 30 mL/min) AND/OR *Sequential Compression Device (SCD) 5 or more Highest Order ONE of the following medications: *Heparin 5000 units SQ TID (Preferred with Epidurals) *Enoxaparin/Lovenox 40 mg SQ daily (WT < 150 kg, CrCl > 30 mL/min) *Enoxaparin/Lovenox 30 mg SQ daily (WT < 150 kg, CrCl > 10-29 mL/min) *Enoxaparin/Lovenox 30 mg SQ BID (WT < 150 kg, CrCl > 30 mL/min) AND *Sequential Compression Device (SCD) Assessment and Plan Assessment and Plan Assessment: 72yM with acute metabolic encephalopathy, acute GI bleed, and severe life-threatening hyponatremia. Does not have stigmata of chronic liver disease. most likely upper GI bleeding, but will need endoscopic investigation of upper and lower most likely. will consult GI. transfuse 1 unit prbc now for rapidly falling hgb. will admit to ICU, very critically ill. encephalopathy most likely secondary to poor cerebral perfusion as well as electrolyte derangements. Critically ill. Plan by systems: Neurologic: Acute metabolic encephalopathy Chronic pain from multiple fractures Osteogenesis imperfecta -secondary to hyponatremia and poor cerebral perfusion from GI bleeding - frequent neuro checks - avoid long-acting sedating meds - pad bed rails - care when turning Respiratory: COPD - aggressive pulmonary toilet - wean o2 for goal spo2 > 90% - prn nebs - elevated HOB Cardiovascular: Hypovolemic shock - secondary to GI bleed. - s/p 2 liters NS - 1 additional L NS - 1 unit prbc - 4 units crossmatch on hold Renal: - place polo catheter -- Strict I/Os FEN/GI: Life-threatening Hyponatremia Life-threatening hypokalemia Acute protein calorie malnutrition- moderate Active GI bleed - 40 meq KCl IV x 1 then recheck potassium - send urine and serum osms, urine sodium - unclear etiology of sodium: initial evaluation would suggest hypovolemic hyponatremia from GI bleeding, however ex- states that his sodium levels were low (unknown value) at [facility] last week. - trend sodiums q6h - goal of 10 meq/24h: however, given severe altered mental status, will need to rise initially by 5 meq to prevent seizures. Also, given hypovolemic shock and need for rapid blood and fluid administration from GI bleed, overcorrection may be unavoidable to prevent organ damage from shock. - GI consult - NPO - check prealbumin - protonix and octreotide drips - will need endoscopic evaluation. Heme/ID: Acute anemia secondary to blood loss - serial h&h q6h - check coags - daily cbc - no infectious etiology suspected at this time - no history of anticoagulant use. Endocrine: Hyperglycemia of critical illness -- SSI, medium scale, q6h Prophylaxis: GI Prophylaxis Protonix drip DVT Prophylaxis -- SCDs Hold pharmacologic DVT prophylaxis secondary to active GI bleed Lines: Left radial arterial line 01/13 Polo May require central venous access, will reevaluate closely. 2 large-bore IVs at all times given active GI bleed. Dispo: Admit to ICU. Critically ill. This patient remains critically ill with one or more organ systems which are or may become a threat to life. I have spent in excess of 76 minutes discontinuously in the care and management of this patient. This time is exclusive of procedures, and includes, but is not limited to, evaluation of the patient, review of the medical record, discussions with family, consultants, nursing staff, or respiratory therapy, and documentation in the medical record. I discussed the patient's current medical problems, his critical illness, and his prognosis extensively with the ex- and son at bedside. Zion Costello MD Jan 13, 2018 07:28
[2018-01-13] MEDS ORDERED: MAGNESIUM SULFATE INJ 4 GM in SODIUM CHLORIDE 0.9% INJ 92 ML IV PRN (07:30)
[2018-01-13] MEDS ORDERED: CHLORHEXIDINE GLUCONATE 2 % 1 PACK (2 CLOTHS) TOP PRN (07:30)
[2018-01-13] MEDS ORDERED: POTASSIUM PHOSPHATE MONOBASIC 500 MG TAB PO/TUBE PRN (07:30)
[2018-01-13] MEDS ORDERED: POTASSIUM PHOSPHATE MONOBASIC 500 MG TAB PO PRN (07:30)
[2018-01-13] MEDS ORDERED: MAGNESIUM SULFATE INJ 2 GM in SODIUM CHLORIDE 0.9% INJ 96 ML IV PRN (07:30)
[2018-01-13] MEDS ORDERED: MISCELLANEOUS NURSING INFORMATION XX SCH (07:30)
[2018-01-13] MEDS ORDERED: POTASSIUM CHLOR 40 MEQ PREMIX 100 ML IV PRN ×2 (07:30)
[2018-01-13] MEDS ORDERED: POTASSIUM CHLOR 20 MEQ PREMIX 100 ML IV PRN (07:30)
[2018-01-13] MEDS ORDERED: MAGNESIUM OXIDE 400 MG TAB PO PRN (07:30)
[2018-01-13] MEDS ORDERED: DEXTROSE 50% IN WATER 50 ML VIAL(D50) IV PUSH PRN (07:30)
[2018-01-13] MEDS ORDERED: POTASSIUM CHLORIDE 25 MEQ EFFERVESCENT TAB PO PRN (07:30)
[2018-01-13] MEDS ORDERED: SODIUM PHOSPHATE INJ 30 MMOL in SODIUM CHLOR 0.9% 250 ML INJ 240 ML IV PRN (07:30)
[2018-01-13] MEDS ORDERED: POTASSIUM PHOSPHATE INJ 30 MMOL in SODIUM CHLOR 0.9% 250 ML INJ 250 ML IV PRN (07:30)
[2018-01-13 07:50] LABS: BILIRUBIN, URINE NEG (NEG); BLOOD, URINE NEG (NEG); GLUCOSE,URINE NEG (NEG); KETONE, URINE NEG (NEG); NITRITE,URINE NEG (NEG); URINE COLOR YELLOW (YELLW/STRAW); URINE LEUKOCYTE ESTERASE NEG (NEG)
[2018-01-13] MEDS ORDERED: ONDANSETRON HCL 4 MG/2 ML VIAL IV PUSH PRN (08:00)
[2018-01-13] MEDS ORDERED: PANTOPRAZOLE INJ 80 MG in SODIUM CHLORIDE 0.9% INJ 35 ML IV ONE (08:00)
[2018-01-13] MEDS ORDERED: SODIUM CHLOR 0.9% 250 ML INJ 250 ML IV ONE (08:00)
[2018-01-13] MEDS ORDERED: RESP: ALBUTEROL 2.5 MG/IPRATROPIUM 0.5 MG NEB (PRN) INH (08:00)
[2018-01-13 08:04] LABS: RENAL EPITHELIAL CELLS 0-5 /hpf; WBC, URINE 0-2 /hpf (0-5)
--- NOTE | 2018-01-13 08:18 | RADRPT ---
EXAM DATE/TIME: 01/13/2018 07:54 [place] COMPARISON: No previous studies available for comparison. INDICATIONS : Altered mental status. RADIATION DOSE: 64.32 CTDIvol (mGy) MEDICAL HISTORY : Chronic obstructive pulmonary disease. Hypertension. SURGICAL HISTORY : None. ENCOUNTER: Initial ACUITY: 1 day PAIN SCALE: 0/10 LOCATION: cranial TECHNIQUE: Multiple contiguous axial images were obtained of the head. Using automated exposure control and adj ustment of the mA and/or kV according to patient size, radiation dose was kept as low as reasonably a chievable to obtain optimal diagnostic quality images. DICOM format image data is available electro nically for review and comparison. FINDINGS: CEREBRUM: Central cerebral atrophy is noted. No evidence of midline shift, mass lesion, hemorrhage or acute in farction. No extra-axial fluid collections are seen. Mild periventricular and subcortical white gay er small vessel ischemic changes are noted bilaterally. POSTERIOR FOSSA: The cerebellum and brainstem are intact. The 4th ventricle is midline. The cerebellopontine angle i s unremarkable. EXTRACRANIAL: The visualized portion of the orbits is intact. SKULL: The calvaria is intact. No evidence of skull fracture. CONCLUSION: 1. Central cerebral atrophy. 2. Mild periventricular and subcortical white matter small vessel ischemic changes bilaterally. 3. No acute infarct, acute hemorrhage, mass effect or extra-axial fluid collections. Milan Mcgraw MD on January 13, 2018 at 8:15 Board Certified Radiologist. This report was verified electronically.
--- NOTE | 2018-01-13 08:41 | PD.PROCEDR ---
Procedure Note Procedure Procedure: Arterial Line Placement Left radial arterial line Diagnosis: Hemorrhagic shock Indications: Need for beat to beat hemodynamic monitoring and serial blood gas monitoring Consent: Emergent Description of the Procedure: The left wrist was prepped and draped sterilely. 1% lidocaine was used for local anesthesia. The pulse was located and a needle was advanced into the artery. A 20 gauge, 12 cm catheter was advanced into the artery using a modified Seldinger technique. The catheter was sutured to the skin and a sterile dressing was applied. The catheter was connected to a pressure transducer and an arterial waveform was noted. There were no immediate complications noted. There was minimal EBL. I personally performed the procedure. Zion Costello MD Jan 13, 2018 08:41
[2018-01-13 09:45] LABS: INTERNATIONAL NORMALIZED RATIO 1.2 RATIO; PROTHROMBIN TIME - PATIENT 12.5 SEC (9.8-11.6)
[2018-01-13] MEDS: POTASSIUM CHLOR 20 MEQ PREMIX 100 ML IV SCH ×2 (09:45→11:23)
[2018-01-13] MEDS: OCTREOTIDE INJ 500 MCG in SODIUM CHLORID 0.9% 500 ML INJ 500 ML IV SCH ×2 (10:29→20:17)
--- NOTE | 2018-01-13 10:31 | EKG ---
Date Performed: 01/13/2018 Time Performed: 07:51:34 PTAGE: 72 years EKG: Rhythm appears to be sinus arrhythmia with frequent PACs and PVCs INFERIOR MYOCARDIAL INFAR CTION ABNORMAL ECG PREVIOUS TRACING : 07/27/2017 14.45 Compared to prior study, the rate has slowed. Nonspecific T -wave changes have resolved. DOCTOR: Jerad Allen Interpretating Date/Time 01/13/2018 10:30:06
[2018-01-13] MEDS: PANTOPRAZOLE INJ 80 MG in SODIUM CHLORIDE 0.9% INJ 100 ML IV SCH ×2 (10:33→20:18)
[2018-01-13 11:01] LABS: SODIUM,RANDOM URINE 5 MEQ/L
[2018-01-13 11:05] LABS: OSMOLALITY,URINE 392 MOSM/KG (300-1300)
[2018-01-13] MEDS: INSULIN NovoLIN REGULAR SUPPLEMENTAL SCALE SQ SCH ×2 (12:00→17:26)
[2018-01-13 15:18] LABS: HEMATOCRIT 22.9 % (39.0-51.0); HEMOGLOBIN 8.2 GM/DL (13.0-17.0)
[2018-01-13] MEDS ORDERED: COLA100C5 PO (17:07)
[2018-01-13] MEDS ORDERED: HYDR25TA5 PO (17:07)
[2018-01-13] MEDS ORDERED: BISC10SU RECTAL (17:07)
[2018-01-13] MEDS: SODIUM CHLOR 0.45% 1000 ML INJ 1,000 ML IV SCH (17:18)
--- NOTE | 2018-01-13 17:47 | PD.CONS ---
HPI History of Present Illness This is a 72 year old, male who was admitted to the hospital with history of altered mental status associated with dark tarry stools consistent with melena. There is no history of hematemesis hematochezia heartburn dysphagia nausea vomiting jaundice ascites edema chronic constipation, chronic diarrhea anorexia or weight loss. PFSH Past Medical History COPD hypertension hyperlipidemia osteogenesis imperfecta scoliosis Past Surgical History Multiple surgeries for bilateral hip fractures Coded Allergies: No Known Allergies (Verified , 07/27/17) Medications As per the nursing MAR Family History No history of colorectal cancer or polyps in the family Social History Patient denies currently being a smoker or having alcohol abuse issues Review of Systems Gastrointestinal: COMPLAINS OF: Black stools, DENIES: Abdominal pain, Bloody stools, Constipation, Diarrhea, Nausea, Vomiting, Difficulty Swallowing, Anorexia, Odynophagia, Swelling of Abdomen, Heartburn, Hematemesis GI Exam Vitals I&O Vital Signs Date Time Temp Pulse Resp B/P (MAP) Pulse Ox O2 Delivery O2 Flow Rate FiO2 01/13/18 17:00 96 24 114/52 (72) 99 01/13/18 16:00 97.9 100 29 114/50 (71) 97 01/13/18 16:00 100 01/13/18 16:00 100 01/13/18 15:00 98 01/13/18 15:00 98 01/13/18 15:00 98 23 110/48 (68) 96 01/13/18 14:00 98 01/13/18 14:00 98 25 118/52 (74) 100 01/13/18 14:00 98 01/13/18 13:00 98 01/13/18 13:00 98 21 124/54 (77) 98 01/13/18 12:00 96 01/13/18 12:00 97.3 96 26 132/56 (81) 100 01/13/18 12:00 96 01/13/18 11:05 96 01/13/18 11:05 96 24 79/46 (57) 100 100/46 (64) 01/13/18 11:00 97 Nasal Cannula 2.00 01/13/18 11:00 98 01/13/18 11:00 98 01/13/18 11:00 98 40 90/44 (59) 96 01/13/18 10:15 96.7 98 29 102/48 (66) 99 01/13/18 10:00 96 01/13/18 10:00 96 33 110/50 (70) 100 01/13/18 10:00 96 01/13/18 09:52 97.7 100 23 91/51 (64) 93 90/42 (58) 01/13/18 09:52 100 01/13/18 09:52 100 23 91/51 (64) 93 90/42 (58) 01/13/18 09:45 94 25 106/46 (66) 98 01/13/18 09:30 94 37 91/51 (64) 100 01/13/18 09:00 92 01/13/18 08:30 94 26 90/36 (54) 01/13/18 08:18 96 27 104/54 (71) 01/13/18 08:18 96 27 104/54 (71) 01/13/18 08:18 96 01/13/18 08:10 01/13/18 06:50 74 92/52 (65) 01/13/18 06:30 85 89/48 (62) 01/13/18 06:15 77 88/42 (57) 96 Nasal Cannula 4.00 01/13/18 06:00 78 78/48 (58) 01/13/18 05:45 87 12 84 Non-Rebreather 01/13/18 05:45 87 77/62 (67) 97 Non-Rebreather 15.00 01/13/18 05:40 99.4 87 14 77/53 (61) 92 I/O 01/12/18 01/12/18 01/12/18 01/13/18 01/13/18 01/13/18 07:00 15:00 23:00 07:00 15:00 23:00 Intake Total 1335 ml Output Total 425 ml Balance 910 ml Intake IV Total 1335 ml Output Urine Total 425 ml Laboratory Test 01/13/18 05:55 01/13/18 06:50 01/13/18 07:43 01/13/18 08:40 Blood Gas Puncture Site RT FEMORAL Blood Gas Patient Temperature 98.6 Blood Gas HCO3 33 mmol/L Blood Gas Base Excess 8.3 mmol/L Blood Gas Oxygen Saturation 98 % Arterial Blood pH 7.46 Arterial Blood Partial Pressure CO2 47 mmHG Arterial Blood Partial Pressure O2 376 mmHG Arterial Blood Oxygen Content 12.3 Vol % Arterial Blood Carboxyhemoglobin 1.9 % Arterial Blood Methemoglobin 0.9 % Blood Gas Hemoglobin 8.3 G/DL Oxygen Delivery Device NONREBREATHER MASK Blood Gas Liter Flow 15 L/M White Blood Count 9.3 TH/MM3 Red Blood Count 2.53 MIL/MM3 Hemoglobin 8.2 GM/DL Hematocrit 23.3 % Mean Corpuscular Volume 92.0 FL Mean Corpuscular Hemoglobin 32.2 PG Mean Corpuscular Hemoglobin Concent 35.0 % Red Cell Distribution Width 13.2 % Platelet Count 351 TH/MM3 Mean Platelet Volume 7.1 FL Neutrophils (%) (Auto) 85.7 % Lymphocytes (%) (Auto) 7.2 % Monocytes (%) (Auto) 5.9 % Eosinophils (%) (Auto) 0.9 % Basophils (%) (Auto) 0.3 % Neutrophils # (Auto) 8.0 TH/MM3 Lymphocytes # (Auto) 0.7 TH/MM3 Monocytes # (Auto) 0.5 TH/MM3 Eosinophils # (Auto) 0.1 TH/MM3 Basophils # (Auto) 0.0 TH/MM3 CBC Comment DIFF FINAL Differential Comment Blood Urea Nitrogen 68 MG/DL Creatinine 0.88 MG/DL Random Glucose 143 MG/DL Total Protein 4.4 GM/DL Albumin 2.3 GM/DL Calcium Level 7.2 MG/DL Alkaline Phosphatase 59 U/L Aspartate Amino Transf (AST/SGOT) 17 U/L Alanine Aminotransferase (ALT/SGPT) 18 U/L Total Bilirubin 0.4 MG/DL Sodium Level 114 MEQ/L Potassium Level 2.7 MEQ/L Chloride Level 72 MEQ/L Carbon Dioxide Level 35.2 MEQ/L Anion Gap 7 MEQ/L Estimat Glomerular Filtration Rate 85 ML/MIN Protein Corrected Calcium 8.7 MG/DL Ammonia 13 MCMOL/L Total Creatine Kinase 80 U/L Troponin I 0.05 NG/ML B-Type Natriuretic Peptide 43 PG/ML Prealbumin 26 MG/DL Thyroid Stimulating Hormone 3rd Gen 1.030 uIU/ML Ethyl Alcohol Level LESS THAN 3 MG/DL Urine Collection Type CATH Urine Color YELLOW Urine Turbidity CLEAR Urine pH 6.0 Urine Specific [place] LESS/EQUAL 1.005 Urine Protein NEG mg/dL Urine Glucose (UA) NEG mg/dL Urine Ketones NEG mg/dL Urine Occult Blood NEG Urine Nitrite NEG Urine Bilirubin NEG Urine Urobilinogen 0.2 MG/DL Urine Leukocyte Esterase NEG Urine WBC 0-2 /hpf Urine Renal Epithelial Cells 0-5 /hpf Urine Hyaline Casts 3-5 /lpf Microscopic Urinalysis Comment CATH-CULT NOT IND Urine Osmolality 392 MOSM/KG Urine Random Sodium 5 MEQ/L Urine Collection Time 07:43 Urine Opiates Screen NEG Urine Barbiturates Screen NEG Urine Amphetamines Screen NEG Urine Benzodiazepines Screen NEG Urine Cocaine Screen NEG Urine Cannabinoids Screen NEG Lactic Acid Level 1.1 mmol/L Test 01/13/18 08:45 01/13/18 14:43 Prothrombin Time 12.5 SEC Prothromb Time International Ratio 1.2 RATIO Activated Partial Thromboplast Time 24.6 SEC Nasal Screen MRSA (PCR) MRSA DETECTED Serum Osmolality 274 MOSM/KG Hemoglobin 8.2 GM/DL Hematocrit 22.9 % Sodium Level 124 MEQ/L Potassium Level 3.7 MEQ/L Date/Time Source Procedure Growth Status 01/13/18 08:45 Blood Peripheral Aerobic Blood Culture Pending Received 01/13/18 08:45 Blood Peripheral Anaerobic Blood Culture Pending Received Physical Examination HEENT: Pupils round and reactive to light; normocephalic; atraumatic; no jaundice. Throat is clear. NECK: Neck is supple, no JVD, no lymphadenopathy. CHEST: Bilateral scattered rales and rhonchi CARDIAC: Regular rate and rhythm, ejection systolic murmur grade 1/ 6 of the left sternal border ABDOMEN: Soft, nondistended, nontender; no hepatosplenomegaly; bowel sounds are present in all four quadrants. EXTREMITIES: No clubbing, cyanosis, or edema. SKIN: Normal; no rash; no jaundice. [employer]OR: No focal deficits; alert and oriented times three. Assessment and Plan Assessment: (1) Upper GI bleed ICD Codes: K92.2 - Gastrointestinal hemorrhage, unspecified Status: Acute (2) Anemia ICD Codes: D64.9 - Anemia, unspecified Status: Acute Plan 1. Upper GI bleeding producing anemia. Possible underlying causes include peptic ulcer disease ,erosive reflux esophagitis, angiectasia and neoplasia 2. EGD for further evaluation 3. Monitor serial hemoglobin levels 4. IV Protonix 40 mg twice daily 5. Continue other supportive measures Shabbir Pozo MD Jan 13, 2018 17:47
[2018-01-13 21:06] LABS: HEMATOCRIT 23.4 % (39.0-51.0); HEMOGLOBIN 7.9 GM/DL (13.0-17.0)
[2018-01-14] VITALS (34 sets, daily range): BP systolic 70–144; BP diastolic 47–74; PULSE 98–112; RESP 14–37; TEMP 97.6–99; O2SAT 91–98
[2018-01-14 03:56] LABS: HEMATOCRIT 29.9 % (39.0-51.0); HEMOGLOBIN 10.1 GM/DL (13.0-17.0); MEAN CELL VOLUME 91.1 FL (80.0-100.0); MEAN CORPUSCULAR HEMOGLOBIN 30.8 PG (27.0-34.0); MEAN CORPUSCULAR HGB CONC 33.8 % (32.0-36.0); MEAN PLATELET VOLUME 7.6 FL (7.0-11.0); PLATELET COUNT 255 TH/MM3 (150-450); RED BLOOD COUNT 3.28 MIL/MM3 (4.50-5.90); RED CELL DISTRIBUTION WIDTH 13.4 % (11.6-17.2); WHITE BLOOD COUNT 13.6 TH/MM3 (4.0-11.0)
[2018-01-14] MEDS: CHLORHEXIDINE GLUCONATE 2 % 1 PACK (2 CLOTHS) TOP SCH (04:00)
[2018-01-14 04:09] LABS: INTERNATIONAL NORMALIZED RATIO 1.1 RATIO; PROTHROMBIN TIME - PATIENT 11.6 SEC (9.8-11.6)
[2018-01-14 04:11] LABS: BICARBONATE 27.6 MEQ/L (21.0-32.0); CALCIUM 7.5 MG/DL (8.5-10.1)
[2018-01-14 04:13] LABS: CREATININE 0.62 MG/DL (0.60-1.30)
[2018-01-14] MEDS: POTASSIUM CHLOR 20 MEQ PREMIX 100 ML IV PRN ×4 (05:55→13:32)
[2018-01-14] MEDS: INSULIN NovoLIN REGULAR SUPPLEMENTAL SCALE SQ SCH ×4 (06:00→18:54)
--- NOTE | 2018-01-14 06:37 | HHI.CCPN ---
Subjective Remarks/Hospital Course Hospital Course: This is a 72yM with a reported history of COPD and osteogenesis imperfecta who presents for acute altered mental status and dark tarry stools. when he arrived , he was obtunded and so no additional information is available from him. His ex - who lives with him as well as his son are at bedside and provide most of the history. they state that [facility] and [facility] his multiple prior fractures that he has, and since that time, he has had a slow decline over the last week. about 1-2 days ago, his ex- noticed him having new dark black tarry stools. yesterday he was somewhat altered and confused, and she tried to get him to seek medical attention, but today he was more altered. He does have a remote history of etoh abuse, but they deny any etoh at all in many years. Of note, his ex- did state that at the [facility] last week, they said his sodium was very low, although she does not know how low it was. In the emergency department, he was initially hypotensive and given 2L NS ivf which improved his blood pressure. His hgb is 8.2. the last hgb we have is from 07/2017 when it was 13. He also had a large melanic bowel movement in the emergency department. His sodium is 114 and K 2.7 on initial BMP. Critical care medicine is consulted to evaluate and manage his acute encephalopathy, his severe metabolic derangements, and his GI bleeding. ROS is unobtainable due to his mental status. Subjective: 01/14: mental status improving. sodium manjeet again to 129 despite adding additional free water yesterday. will add 1 mcg ddavp to curtail rise. now appears euvolemic. hgb stable. GI saw and recommends EGD. Objective Vital Signs Date Time Temp Pulse Resp B/P (MAP) Pulse Ox O2 Delivery O2 Flow Rate FiO2 01/14/18 05:00 100 22 114/55 (74) 95 01/14/18 04:00 98.0 01/13/18 20:27 Nasal Cannula 2.00 Intake and Output 01/14/18 01/14/18 01/15/18 08:00 16:00 00:00 Intake Total 420 ml Balance 420 ml Result Diagram: 01/14/18 0345 01/14/18 0345 Objective Remarks gen: elderly male, lying in bed, altered, but improving mentation heent: nc. at. perrl. mucous membranes moist. sclerae pale. neck: trachea midline. no jvd. chest: equal chest rise. 2L o2 by nc. barrel chest noted. cv: normal rate, irregularly irregular rhythm. afib. abd: soft, nontender, nondistended. no guarding. extr: warm and well perfused. no edema. no clubbing. distal pulses 2+. neuro: RASS -1. CAM+. confused. oriented to person only. weakly follows commands. A/P Assessment and Plan Assessment: 72yM with acute metabolic encephalopathy, acute GI bleed, and severe life-threatening hyponatremia. Needs endoscopy for GI bleeding. continue to trend h&h. sodium is rising despite adding free water, so will add 1mcg ddavp. continue 1/2 NS and at next sodium check, may need to drop further to 1/ 4 NS. remains critically ill requiring close sodium and hgb monitoring to prevent morbidity and mortality. Plan by systems: Neurologic: Acute metabolic encephalopathy Chronic pain from multiple fractures Osteogenesis imperfecta -secondary to hyponatremia and poor cerebral perfusion from GI bleeding - frequent neuro checks - avoid long-acting sedating meds - pad bed rails - care when turning Respiratory: COPD - aggressive pulmonary toilet - wean o2 for goal spo2 > 90% - prn nebs - elevated HOB Cardiovascular: Hypovolemic shock- resolved. atrial fibrillation - secondary to GI bleed. - s/p 2 liters NS, 2 units prbc. - 4 units crossmatch on hold - hold rate controlling drugs and anticoagulants for afib given bleeding. Renal: - keep polo catheter today -- Strict I/Os FEN/GI: Life-threatening Hyponatremia Life-threatening hypokalemia- resolving. Acute protein calorie malnutrition- moderate Active GI bleed - 80 meq KCl IV x 1 then recheck potassium - hypovolemic hyponatremia. - trend sodiums q6h - goal of 10 meq/24h: Given hypovolemic shock and end-organ hypoperfusion and need for rapid blood and fluid administration from GI bleed, overcorrection may be unavoidable to prevent organ damage from shock. - ddavp 1mcg iv x 1. - GI consult - NPO - protonix and octreotide drips - will need endoscopic evaluation, would prefer this to be done early to prevent ongoing electrolyte shifts from any ongoing bleeding and transfusions. I have spoken with GI. Heme/ID: Acute anemia secondary to blood loss - serial h&h q6h - check coags - daily cbc - no infectious etiology suspected at this time - no history of anticoagulant use. Endocrine: Hyperglycemia of critical illness -- SSI, medium scale, q6h Prophylaxis: GI Prophylaxis Protonix drip DVT Prophylaxis -- SCDs Hold pharmacologic DVT prophylaxis secondary to active GI bleed Lines: piv Polo 2 large-bore IVs at all times given active GI bleed. Dispo: remain in ICU. Critically ill. This patient remains critically ill with one or more organ systems which are or may become a threat to life. I have spent in excess of 31 minutes discontinuously in the care and management of this patient. This time is exclusive of procedures, and includes, but is not limited to, evaluation of the patient, review of the medical record, discussions with family, consultants, nursing staff, or respiratory therapy, and documentation in the medical record. Zion Costello MD Jan 14, 2018 06:37
[2018-01-14] MEDS ORDERED: DESMOPRESSIN ACETATE 4 MCG/ML VIAL IV PUSH ONE (07:10)
[2018-01-14] MEDS: OCTREOTIDE INJ 500 MCG in SODIUM CHLORID 0.9% 500 ML INJ 500 ML IV SCH ×2 (09:31→20:10)
[2018-01-14 10:01] LABS: HEMATOCRIT 28.2 % (39.0-51.0); HEMOGLOBIN 9.6 GM/DL (13.0-17.0)
[2018-01-14] MEDS: PANTOPRAZOLE INJ 80 MG in SODIUM CHLORIDE 0.9% INJ 100 ML IV SCH ×2 (11:18→19:48)
--- NOTE | 2018-01-14 11:44 | HHI.GIFU ---
Subjective Remarks H and is laying in bed, seems to be confused but arousable with some respond to questions, no active bleeding, had bowel movement according to the nursing staff that was not bloody dark but no melena Objective Vitals I&O Vital Signs Date Time Temp Pulse Resp B/P (MAP) Pulse Ox O2 Delivery O2 Flow Rate FiO2 01/14/18 10:00 104 28 124/55 (78) 93 01/14/18 10:00 104 01/14/18 09:31 102 26 117/57 (77) 91 01/14/18 09:31 102 01/14/18 09:00 98.4 98 27 106/47 (66) 92 01/14/18 09:00 98 01/14/18 08:00 102 30 110/53 (72) 94 01/14/18 08:00 102 01/14/18 07:45 96 Nasal Cannula 2.00 01/14/18 07:00 99.0 100 29 125/62 (83) 96 01/14/18 06:00 100 26 104/63 (77) 95 01/14/18 06:00 100 01/14/18 05:00 100 22 114/55 (74) 95 01/14/18 04:00 100 01/14/18 04:00 98.0 100 25 131/55 (80) 94 Arterial Line 01/14/18 04:00 100 01/14/18 03:00 100 01/14/18 03:00 100 33 130/51 (77) 94 01/14/18 02:00 106 29 85/56 (66) 95 01/14/18 02:00 106 01/14/18 02:00 106 01/14/18 02:00 98.2 106 29 85/56 95 01/14/18 01:30 108 15 109/61 (77) 96 01/14/18 01:15 108 14 122/74 (90) 97 01/14/18 01:00 108 17 112/57 (75) 98 01/14/18 00:45 110 37 84/59 (67) 98 01/14/18 00:30 108 23 99/66 (77) 98 01/14/18 00:15 112 26 99/71 (80) 98 70/58 (62) 01/14/18 00:00 110 01/14/18 00:00 110 01/14/18 00:00 98.2 110 25 90/54 (66) 98 76/66 (69) 01/13/18 23:45 106 27 62/53 (56) 98 96/84 (88) 01/13/18 23:42 110 26 86/60 (69) 98 100/90 (93) 01/13/18 23:30 112 25 75/50 (58) 99 110/98 (102) 01/13/18 23:15 112 22 111/64 (80) 98 68/54 (59) 01/13/18 23:00 108 19 97/60 (72) 98 74/54 (61) 01/13/18 22:45 110 31 100/68 (79) 98 70/54 (59) 01/13/18 22:40 98.3 108 29 74/52 100 01/13/18 22:30 112 29 79/58 (65) 97 64/54 (57) 01/13/18 22:20 98.1 108 28 86/48 94 01/13/18 22:15 106 27 79/56 (64) 94 76/60 (65) 01/13/18 22:00 106 01/13/18 22:00 106 01/13/18 22:00 106 29 85/49 (61) 98 78/62 (67) 01/13/18 21:35 104 28 99/46 (63) 97 68/58 (61) 01/13/18 21:30 106 43 112/90 (97) 76 01/13/18 21:00 112 01/13/18 20:30 112 34 110/70 (83) 100 01/13/18 20:27 99 Nasal Cannula 2.00 01/13/18 20:00 108 01/13/18 20:00 108 01/13/18 19:30 108 31 130/90 (103) 95 01/13/18 18:50 98.1 102 29 111/61 (78) 97 140/102 (115) 01/13/18 18:30 104 29 120/62 (81) 90 01/13/18 18:00 102 01/13/18 18:00 102 26 110/64 (79) 100 01/13/18 17:00 96 24 114/52 (72) 99 01/13/18 16:00 97.9 100 29 114/50 (71) 97 01/13/18 16:00 100 01/13/18 16:00 100 01/13/18 15:00 98 01/13/18 15:00 98 01/13/18 15:00 98 23 110/48 (68) 96 01/13/18 14:00 98 01/13/18 14:00 98 25 118/52 (74) 100 01/13/18 14:00 98 01/13/18 13:00 98 01/13/18 13:00 98 21 124/54 (77) 98 01/13/18 12:00 96 01/13/18 12:00 97.3 96 26 132/56 (81) 100 01/13/18 12:00 96 I/O 01/13/18 01/13/18 01/13/18 01/14/18 01/14/18 01/14/18 07:00 15:00 23:00 07:00 15:00 23:00 Intake Total 1335 ml 650 ml 420 ml 100 ml Output Total 425 ml 650 ml 1300 ml Balance 910 ml 0 ml -880 ml 100 ml Intake Oral 0 ml IV Total 1335 ml 600 ml 100 ml Packed Cells 400 ml Blood Product IV Normal Saline Flush 50 ml 20 ml Output Urine Total 425 ml 650 ml 1300 ml Laboratory Laboratory Tests Test 01/13/18 14:43 01/13/18 21:00 01/14/18 03:45 01/14/18 09:39 Hemoglobin 8.2 7.9 10.1 9.6 Hematocrit 22.9 23.4 29.9 28.2 Sodium Level 124 124 129 130 Potassium Level 3.7 3.2 White Blood Count 13.6 Red Blood Count 3.28 Mean Corpuscular Volume 91.1 Mean Corpuscular Hemoglobin 30.8 Mean Corpuscular Hemoglobin Concent 33.8 Red Cell Distribution Width 13.4 Platelet Count 255 Mean Platelet Volume 7.6 Prothrombin Time 11.6 Prothromb Time International Ratio 1.1 Activated Partial Thromboplast Time 19.9 Blood Urea Nitrogen 57 Creatinine 0.62 Random Glucose 128 Calcium Level 7.5 Chloride Level 93 Carbon Dioxide Level 27.6 Anion Gap 8 Estimat Glomerular Filtration Rate 127 Date/Time Source Procedure Growth Status 01/13/18 08:45 Blood Peripheral Aerobic Blood Culture - Preliminary NO GROWTH IN 1 DAY Resulted 01/13/18 08:45 Blood Peripheral Anaerobic Blood Culture - Preliminary NO GROWTH IN 1 DAY Resulted Physical Exam HEENT: Pupils round and reactive to light; normocephalic; atraumatic; no jaundice. Throat is clear. NECK: Neck is supple, no JVD, no lymphadenopathy. CHEST: Chest is clear to auscultation and percussion. CARDIAC: Regular rate and rhythm with no murmur gallop or rubs. ABDOMEN: Soft, nondistended, nontender; no hepatosplenomegaly; bowel sounds are present in all four quadrants. EXTREMITIES: No clubbing, cyanosis, or edema. SKIN: Normal; no rash; no jaundice. MINERALOGY TEACHER: No focal deficits; arousable confused Assessment and Plan Assessment: (1) Upper GI bleed ICD Codes: K92.2 - Gastrointestinal hemorrhage, unspecified Status: Acute (2) Anemia ICD Codes: D64.9 - Anemia, unspecified Status: Acute Plan 1. Upper GI bleeding producing anemia. Possible underlying causes include peptic ulcer disease ,erosive reflux esophagitis, angiectasia and neoplasia No sign of active bleeding at this time hemoglobin is stable still confused 2. EGD for further evaluation in a.m. 3. Monitor serial hemoglobin levels 4. IV Protonix 40 mg twice daily 5. Continue other supportive measures Su Rdz MD Jan 14, 2018 11:44
[2018-01-14 15:31] LABS: HEMATOCRIT 26.9 % (39.0-51.0); HEMOGLOBIN 9.2 GM/DL (13.0-17.0)
[2018-01-14] MEDS: SODIUM CHLOR 0.45% 1000 ML INJ 1,000 ML IV SCH (15:51)
[2018-01-14 21:41] LABS: HEMATOCRIT 26.4 % (39.0-51.0); HEMOGLOBIN 8.9 GM/DL (13.0-17.0)
[2018-01-15] VITALS (45 sets, daily range): BP systolic 93–149; BP diastolic 48–93; PULSE 78–98; RESP 6–33; TEMP 97.8–99.4; O2SAT 91–100
[2018-01-15 02:48] LABS: HEMATOCRIT 21.7 % (39.0-51.0); HEMOGLOBIN 7.3 GM/DL (13.0-17.0)
[2018-01-15] MEDS: CHLORHEXIDINE GLUCONATE 2 % 1 PACK (2 CLOTHS) TOP SCH (04:00)
[2018-01-15 04:18] LABS: HEMATOCRIT 24.6 % (39.0-51.0); HEMOGLOBIN 8.1 GM/DL (13.0-17.0); MEAN CELL VOLUME 92.7 FL (80.0-100.0); MEAN CORPUSCULAR HEMOGLOBIN 30.7 PG (27.0-34.0); MEAN CORPUSCULAR HGB CONC 33.1 % (32.0-36.0); MEAN PLATELET VOLUME 7.1 FL (7.0-11.0); PLATELET COUNT 273 TH/MM3 (150-450); RED BLOOD COUNT 2.65 MIL/MM3 (4.50-5.90); RED CELL DISTRIBUTION WIDTH 13.9 % (11.6-17.2); WHITE BLOOD COUNT 15.6 TH/MM3 (4.0-11.0)
[2018-01-15 04:32] LABS: BICARBONATE 32.8 MEQ/L (21.0-32.0); CALCIUM 7.9 MG/DL (8.5-10.1); CREATININE 0.62 MG/DL (0.60-1.30)
[2018-01-15 04:36] LABS: INTERNATIONAL NORMALIZED RATIO 1.1 RATIO
[2018-01-15] MEDS: OCTREOTIDE INJ 500 MCG in SODIUM CHLORID 0.9% 500 ML INJ 500 ML IV SCH ×3 (05:48→18:57)
[2018-01-15] MEDS: INSULIN NovoLIN REGULAR SUPPLEMENTAL SCALE SQ SCH ×4 (06:00→18:00)
[2018-01-15] MEDS: PANTOPRAZOLE INJ 80 MG in SODIUM CHLORIDE 0.9% INJ 100 ML IV SCH ×2 (06:12→10:00)
--- NOTE | 2018-01-15 09:03 | HHI.GIFU ---
Subjective Remarks Patient laying in bed, on CPAP, apparently he deteriorated over night where he require more oxygen and CPAP he fluctuated between 35% and 80% FiO2, according to the nurse no sign of active bleeding, no other GI issue at this time, patient sleepy but arousable Objective Vitals I&O Vital Signs Date Time Temp Pulse Resp B/P (MAP) Pulse Ox O2 Delivery O2 Flow Rate FiO2 01/15/18 08:15 100 35 01/15/18 08:00 90 01/15/18 08:00 82 20 124/58 (80) 99 01/15/18 08:00 99 Bi-Pap 35 01/15/18 07:32 100 70 01/15/18 07:00 98 Bi-Pap 70 01/15/18 07:00 97.9 86 22 149/64 (92) 100 01/15/18 06:20 100 Bi-Pap 70 01/15/18 06:00 90 6 140/63 (88) 98 01/15/18 06:00 90 01/15/18 06:00 98 Bi-Pap 80 01/15/18 05:20 94 80 01/15/18 05:00 96 29 132/65 (87) 99 01/15/18 05:00 99 Bi-Pap 80 01/15/18 04:32 96 29 146/67 (93) 98 01/15/18 04:32 98 01/15/18 04:32 96 01/15/18 04:10 94 01/15/18 04:10 92 01/15/18 04:10 98.7 94 31 139/62 (87) 92 01/15/18 04:00 98 01/15/18 03:00 88 23 137/48 (77) 100 01/15/18 03:00 88 01/15/18 03:00 100 01/15/18 02:00 96 01/15/18 02:00 96 25 133/62 (85) 97 01/15/18 01:00 96 27 135/60 (85) 91 01/15/18 00:00 98 01/15/18 00:00 Nasal Cannula 1.00 01/15/18 00:00 98.9 98 27 144/62 (89) 95 01/14/18 23:00 100 27 140/66 (90) 97 01/14/18 22:00 100 25 133/66 (88) 97 01/14/18 22:00 100 01/14/18 21:00 100 26 135/61 (85) 96 01/14/18 20:00 97.6 100 32 136/66 (89) 95 01/14/18 20:00 98 01/14/18 19:35 95 Nasal Cannula 1.00 01/14/18 19:00 102 31 144/67 (92) 93 01/14/18 18:00 100 01/14/18 18:00 100 29 137/54 (81) 95 01/14/18 17:37 102 26 132/55 (80) 96 01/14/18 17:18 97 Nasal Cannula 1.00 01/14/18 17:00 100 21 94 01/14/18 16:00 98.7 104 27 124/64 (84) 96 01/14/18 16:00 104 01/14/18 15:00 102 01/14/18 14:00 106 01/14/18 13:00 102 01/14/18 12:00 104 01/14/18 12:00 98.3 01/14/18 11:00 98 26 111/59 (76) 96 01/14/18 10:00 104 28 124/55 (78) 93 01/14/18 10:00 104 01/14/18 09:31 102 26 117/57 (77) 91 01/14/18 09:31 102 I/O 01/14/18 01/14/18 01/14/18 01/15/18 01/15/18 01/15/18 07:00 15:00 23:00 07:00 15:00 23:00 Intake Total 420 ml 900 ml 1596 ml 500 ml 0 ml Output Total 1300 ml 150 ml 900 ml Balance -880 ml 900 ml 1446 ml 500 ml -900 ml Intake Oral 0 ml 0 ml IV Total 900 ml 1596 ml 500 ml Packed Cells 400 ml Blood Product IV Normal Saline Flush 20 ml Output Urine Total 1300 ml 150 ml 900 ml Stool Total 0 ml Laboratory Laboratory Tests Test 01/14/18 09:39 01/14/18 15:15 01/14/18 21:25 01/15/18 02:30 Hemoglobin 9.6 9.2 8.9 7.3 Hematocrit 28.2 26.9 26.4 21.7 Sodium Level 130 130 133 135 Test 01/15/18 04:00 01/15/18 04:45 01/15/18 08:50 White Blood Count 15.6 Red Blood Count 2.65 Hemoglobin 8.1 Hematocrit 24.6 Mean Corpuscular Volume 92.7 Mean Corpuscular Hemoglobin 30.7 Mean Corpuscular Hemoglobin Concent 33.1 Red Cell Distribution Width 13.9 Platelet Count 273 Mean Platelet Volume 7.1 Prothrombin Time 11.0 Prothromb Time International Ratio 1.1 Activated Partial Thromboplast Time 20.6 Blood Urea Nitrogen 25 Creatinine 0.62 Random Glucose 139 Calcium Level 7.9 Sodium Level 134 Potassium Level 3.8 Chloride Level 98 Carbon Dioxide Level 32.8 Anion Gap 3 Estimat Glomerular Filtration Rate 127 Blood Gas Puncture Site RT RADIAL Blood Gas Patient Temperature 37.0 Blood Gas HCO3 32 Blood Gas Base Excess 4.1 Blood Gas Oxygen Saturation 94 Arterial Blood pH 7.21 Arterial Blood Partial Pressure CO2 82 Arterial Blood Partial Pressure O2 91 Arterial Blood Oxygen Content 10.7 Arterial Blood Carboxyhemoglobin 2.2 Arterial Blood Methemoglobin 1.0 Blood Gas Hemoglobin 8.0 Oxygen Delivery Device Non-Rebreathing Mask Blood Gas Liter Flow 15 Date/Time Source Procedure Growth Status 01/13/18 08:45 Blood Peripheral Aerobic Blood Culture - Preliminary NO GROWTH IN 1 DAY Resulted 01/13/18 08:45 Blood Peripheral Anaerobic Blood Culture - Preliminary NO GROWTH IN 1 DAY Resulted Physical Exam HEENT: Pupils round and reactive to light; normocephalic; atraumatic; no jaundice. Throat is clear. On CPAP NECK: Neck is supple, no JVD, no lymphadenopathy. CHEST: Chest is clear to auscultation and percussion. Few crackles bilaterally CARDIAC: Regular rate and rhythm ABDOMEN: Soft, nondistended, nontender; no hepatosplenomegaly; bowel sounds are present in all four quadrants. EXTREMITIES: No clubbing, cyanosis, or edema. SKIN: Normal; no rash; no jaundice. ECONOMIC SPECIALIST: No focal deficits; arousable confused Assessment and Plan Assessment: (1) Upper GI bleed ICD Codes: K92.2 - Gastrointestinal hemorrhage, unspecified Status: Acute (2) Anemia ICD Codes: D64.9 - Anemia, unspecified Status: Acute Plan 1. Upper GI bleeding producing anemia. Possible underlying causes include peptic ulcer disease ,erosive reflux esophagitis, angiectasia and neoplasia No sign of active bleeding at this time hemoglobin is stable still confused 2. EGD for further evaluation in a.m. 3. Monitor serial hemoglobin levels 4. IV Protonix 40 mg twice daily 5. Continue other supportive measures 01/15/2018 upper GI bleed with anemia, hemoglobin stable, patient had duration of his pulmonary status requiring him to be on high FiO2 and CPAP, no sign of active bleeding at this time, anesthesia prefer not to do the procedure at this time until the patient is more stable Recommendations We will hold off on the EGD today and possibly redo it tomorrow if evaluation of the patient showed improvement Continue monitoring H&H Packed RBC as needed Continue PPI Su Rdz MD Jan 15, 2018 09:03
[2018-01-15] MEDS: SODIUM CHLOR 0.45% 1000 ML INJ 1,000 ML IV SCH (09:32)
[2018-01-15 09:49] LABS: HEMATOCRIT 23.7 % (39.0-51.0); HEMOGLOBIN 7.8 GM/DL (13.0-17.0)
[2018-01-15 15:00] LABS: HEMOGLOBIN 7.9 GM/DL (13.0-17.0)
[2018-01-15] MEDS ORDERED: MIDAZOLAM HCL 5 MG/5 ML VIAL IV PUSH ONE (15:00)
[2018-01-15] MEDS ORDERED: ETOMIDATE 20 MG/10 ML VIAL IV PUSH ONE (15:00)
[2018-01-15] MEDS ORDERED: ROCURONIUM INJ 50 MG/5 ML VIAL IV ONE (15:00)
[2018-01-15] MEDS ORDERED: MIDAZOLAM HCL 2 MG/2 ML VIAL IV ONE (15:15)
--- NOTE | 2018-01-15 15:31 | RADRPT ---
EXAM DATE/TIME: 01/15/2018 14:38 [facility] COMPARISON: No previous studies available for comparison. INDICATIONS : Respiratory disease. MEDICAL HISTORY : Chronic obstructive pulmonary disease. Hypertension. SURGICAL HISTORY : None. ENCOUNTER: Initial ACUITY: 1 day PAIN SCORE: Non-responsive. LOCATION: Bilateral chest FINDINGS: Left hemithorax is completely opacified. Right lung demonstrates diffuse interstitial prominence. Hea rt and mediastinal structures are obscured by the left lung opacity. CONCLUSION: 1. Opacified left hemithorax 2. Diffuse interstitial prominence right lung Gunnar Hernandez MD on January 15, 2018 at 15:28 Board Certified Radiologist. This report was verified electronically.
--- NOTE | 2018-01-15 16:02 | PD.PROCEDR ---
Procedure Note Procedure Emergency intubation due to acute hypoxemic and hypercarbic respiratory failure: INTUBATION: The patient was put in optimal position for the procedure. Rapid sequence intubation was initiated by me using 15 milligrams of etomidate IV and 5 milligrams of Versed IV. DL with Mac 4 blade Grade 1 view. The patient was intubated with a 8.0 cuffed endotracheal tube. Tube placement was confirmed by visualization of the tube and balloon passing through the cords, capnometry and subsequent chest x-ray. Breath sounds were equal and well aerated bilaterally postintubation. No breath sounds over stomach. Patient tolerated procedure well. Luis Alfredo Berry MD Jan 15, 2018 16:02
--- NOTE | 2018-01-15 16:08 | HHI.CCPN ---
Subjective Remarks/Hospital Course Hospital Course: This is a 72yM with a reported history of COPD and osteogenesis imperfecta who presents for acute altered mental status and dark tarry stools. when he arrived , he was obtunded and so no additional information is available from him. His ex - who lives with him as well as his son are at bedside and provide most of the history. they state that [facility] and [facility] his multiple prior fractures that he has, and since that time, he has had a slow decline over the last week. about 1-2 days ago, his ex- noticed him having new dark black tarry stools. yesterday he was somewhat altered and confused, and she tried to get him to seek medical attention, but today he was more altered. He does have a remote history of etoh abuse, but they deny any etoh at all in many years. Of note, his ex- did state that at the [facility] last week, they said his sodium was very low, although she does not know how low it was. In the emergency department, he was initially hypotensive and given 2L NS ivf which improved his blood pressure. His hgb is 8.2. the last hgb we have is from 07/2017 when it was 13. He also had a large melanic bowel movement in the emergency department. His sodium is 114 and K 2.7 on initial BMP. Critical care medicine is consulted to evaluate and manage his acute encephalopathy, his severe metabolic derangements, and his GI bleeding. ROS is unobtainable due to his mental status. Subjective: 01/14: mental status improving. sodium manjeet again to 129 despite adding additional free water yesterday. will add 1 mcg ddavp to curtail rise. now appears euvolemic. hgb stable. GI saw and recommends EGD. 01/15: Patient developed progressive hypoxemic and hypercarbic respiratory failure. Placed on BiPAP at around 4 AM. No improvement in mental status or hypercarbia. On my exam patient is on BiPAP unresponsive, last ABG showed a pH of 7.23 PCO2 of 80, PO2 of 86 on 60% FiO2. Patient clearly not protecting airway. Chest x-ray shows volume loss in the left lung but this appears similar to x-ray done on 07/27/2017. I had a brief discussion with family. They are inclined to give him a chance with intubation and treatment of COPD. If there is no improvement in 3-4 days they are willing to consider compassionate withdrawal given patient's comorbidities and severe kyphoscoliosis and osteogenesis imperfecta. I intubated and placed patient on mechanical ventilation Objective Vital Signs Date Time Temp Pulse Resp B/P (MAP) Pulse Ox O2 Delivery O2 Flow Rate FiO2 01/15/18 13:36 97 60 01/15/18 13:00 87 28 140/62 (88) 01/15/18 12:00 97.9 01/15/18 10:00 Bi-Pap 01/15/18 00:00 1.00 Intake and Output 01/15/18 01/15/18 01/16/18 08:00 16:00 00:00 Intake Total 500 ml Output Total 900 ml Balance -400 ml Result Diagram: 01/15/18 1435 01/15/18 1435 Other Results Laboratory Tests Test 01/15/18 04:45 01/15/18 14:32 Blood Gas Puncture Site RT RADIAL RT RADIAL Blood Gas Patient Temperature 37.0 37.0 Blood Gas HCO3 32 mmol/L (22-26) 32 mmol/L (22-26) Blood Gas Base Excess 4.1 mmol/L (-2-2) 5.3 mmol/L (-2-2) Blood Gas Oxygen Saturation 94 % (90-100) 95 % (90-100) Arterial Blood pH 7.21 (7.380-7.420) 7.23 (7.380-7.420) Arterial Blood Partial Pressure CO2 82 mmHg (38-42) 80 mmHg (38-42) Arterial Blood Partial Pressure O2 91 mmHg (61-120) 86 mmHg (61-120) Arterial Blood Oxygen Content 10.7 Vol % (12.0-20.0) 10.6 Vol % (12.0-20.0) Arterial Blood Carboxyhemoglobin 2.2 % (0-4) 1.9 % (0-4) Arterial Blood Methemoglobin 1.0 % (0-2) 0.8 % (0-2) Blood Gas Hemoglobin 8.0 G/DL (12.0-16.0) 7.9 G/DL (12.0-16.0) Oxygen Delivery Device Non-Rebreathing Mask BIPAP Blood Gas Liter Flow 15 L/M Blood Gas Ventilator Setting IPAP 12/EPAP 5 Blood Gas Inspired Oxygen 60 % Objective Remarks gen: elderly male, lying in bed, unresponsive on BiPAP 12/5 FiO2 60% heent: nc. at. perrl. mucous membranes moist. sclerae pale. neck: trachea midline. no jvd. severe flexion deformity of the neck chest: On BiPAP 12/5. barrel chest noted. Entry diminished bilaterally predominantly left lung clements. Tachypneic, and respiratory distress cv: normal rate, irregularly irregular rhythm. afib. abd: soft, nontender, nondistended. no guarding. extr: warm and well perfused. no edema. no clubbing. distal pulses 2+. neuro: Patient is unresponsive on BiPAP. Slightly withdraws to painful stimuli. Otherwise no spontaneous movements noted A/P Assessment and Plan Assessment: 72yM with acute metabolic encephalopathy, acute hypoxemic and hypercarbic respiratory failure, acute GI bleed, and severe life-threatening hyponatremia. Intubated today for acute COPD exacerbation and possible pneumonia, sepsis. Needs endoscopy for GI bleeding. continue to trend h&h. sodium is Continue 1/2 NS. Monitor Na closely. Critically ill requiring close sodium and hgb monitoring to prevent morbidity and mortality. Prior to intubation I discussed with the family. If no improvement in respiratory status in the next 3-4 days they will consider passionate withdrawal given extensive comorbidities Plan by systems: Neurologic: Acute metabolic encephalopathy Chronic pain from multiple fractures Osteogenesis imperfecta - secondary to hyponatremia and poor cerebral perfusion from GI bleeding, and hypercapnia - frequent neuro checks - Propofol and fentanyl for sedation and ventilator synchrony - Daily sedation vacation starting in 24 hours Respiratory: Acute hypoxemic and hypercarbic respiratory failure Acute COPD exacerbation Probable pneumonia Left lung volume loss -Intubated and placed on mechanical ventilation ACV 16/500/8 FiO2 100%-titrate to keep sat above 90% -DuoNeb every 4 hours scheduled and as needed -IV Solu-Medrol 40 mg every 8 hours -Check sputum culture, empiric cefepime -elevated HOB -Left lung volume loss appears to be chronic, x-ray on 07/27/2017 looked similar -CT of the chest to better evaluate if atelectasis does not improve in the next 24 hours Cardiovascular: Hypovolemic shock- resolved. atrial fibrillation - secondary to GI bleed. - s/p 2 liters NS, 2 units prbc. - 4 units crossmatch on hold - hold rate controlling drugs and anticoagulants for afib given bleeding. Renal: - keep polo catheter today -- Strict I/Os FEN/GI: Life-threatening Hyponatremia Life-threatening hypokalemia- resolving. Acute protein calorie malnutrition- moderate Active GI bleed -Replace electrolytes per protocol - hypovolemic hyponatremia. - trend sodiums q6h, sodium correction now seems to be appropriate - goal of 10 meq/24h: Given hypovolemic shock and end-organ hypoperfusion and need for rapid blood and fluid administration from GI bleed, overcorrection may be unavoidable to prevent organ damage from shock. - ddavp 1mcg iv x 1 given yesterday - GI consult-did not do endoscopy today due to tenuous respiratory status. Now being intubated consider endoscopy tomorrow a.m. - NPO - protonix and octreotide drips Heme/ID: Acute anemia secondary to blood loss - serial h&h q6h -Monitor coags - daily cbc - no infectious etiology suspected at this time - no history of anticoagulant use. Endocrine: Hyperglycemia of critical illness -- SSI, medium scale, q6h Prophylaxis: GI Prophylaxis Protonix drip DVT Prophylaxis -- SCDs Hold pharmacologic DVT prophylaxis secondary to active GI bleed Lines: piv Polo 2 large-bore IVs at all times given active GI bleed. Dispo: remain in ICU. Critically ill. This patient remains critically ill with one or more organ systems which are or may become a threat to life. I have spent in excess of 35 minutes discontinuously in the care and management of this patient. This time is exclusive of procedures, and includes, but is not limited to, evaluation of the patient, review of the medical record, discussions with family, consultants, nursing staff, or respiratory therapy, and documentation in the medical record. Luis Alfredo Berry MD Jan 15, 2018 16:08
[2018-01-15] MEDS: PROPOFOL 1000 MG/100 ML INJ 100 ML IV PRN ×2 (16:14→21:56)
--- NOTE | 2018-01-15 16:50 | RADRPT ---
EXAM DATE/TIME: 01/15/2018 16:27 [facility] COMPARISON: CHEST SINGLE AP, January 15, 2018, 14:38. INDICATIONS : Post intubation. MEDICAL HISTORY : Hypertension. Chronic obstructive pulmonary disease. SURGICAL HISTORY : None. ENCOUNTER: Subsequent ACUITY: 1 day PAIN SCORE: Non-responsive. LOCATION: Bilateral chest FINDINGS: Endotracheal tube has been inserted. Tip is in good position however there is an acute bend in the di stal endotracheal tube with the end hole pointing towards the side wall of the trachea. The chest is otherwise unchanged in appearance. The left hemithorax remains completely opacified. CONCLUSION: Endotracheal tube is directed towards the side wall of the trachea but is otherwise in good position. Gunnar Hernandez MD on January 15, 2018 at 16:46 Board Certified Radiologist. This report was verified electronically.
[2018-01-15] MEDS: methylPREDNISolone SOD SUCC 125 MG/2 ML VIAL IV PUSH SCH ×2 (18:15→22:15)
[2018-01-15] MEDS: CEFEPIME INJ 2,000 MG in SODIUM CHLORIDE 0.9% INJ 100 ML IV SCH (18:15)
[2018-01-15] MEDS: fentaNYL DRIP 250 ML IV PRN (19:00)
[2018-01-15] MEDS: RESP: ALBUTEROL 2.5 MG/IPRATROPIUM 0.5 MG NEB (SCH) NEB ×2 (19:25→23:06)
[2018-01-15 20:11] LABS: HEMATOCRIT 19.8 % (39.0-51.0); HEMOGLOBIN 6.9 GM/DL (13.0-17.0)
[2018-01-15] MEDS: CHLORHEXIDINE 0.12% (ORAL KIT) 15 ML CUP MT SCH (22:07)
[2018-01-16] VITALS (87 sets, daily range): BP systolic 86–159; BP diastolic 48–78; PULSE 51–98; RESP 15–31; TEMP 97.8–99.9; O2SAT 87–100
[2018-01-16] MEDS: INSULIN NovoLIN REGULAR SUPPLEMENTAL SCALE SQ SCH ×4 (01:52→17:23)
[2018-01-16] MEDS: CEFEPIME INJ 2,000 MG in SODIUM CHLORIDE 0.9% INJ 100 ML IV SCH ×3 (01:53→17:24)
[2018-01-16] MEDS: OCTREOTIDE INJ 500 MCG in SODIUM CHLORID 0.9% 500 ML INJ 500 ML IV SCH ×2 (01:54→15:17)
[2018-01-16] MEDS: RESP: ALBUTEROL 2.5 MG/IPRATROPIUM 0.5 MG NEB (SCH) NEB ×6 (03:23→23:47)
[2018-01-16] MEDS: PANTOPRAZOLE INJ 80 MG in SODIUM CHLORIDE 0.9% INJ 100 ML IV SCH ×3 (03:28→15:33)
[2018-01-16] MEDS: CHLORHEXIDINE GLUCONATE 2 % 1 PACK (2 CLOTHS) TOP SCH (03:29)
[2018-01-16] MEDS: SODIUM CHLOR 0.45% 1000 ML INJ 1,000 ML IV SCH ×2 (05:40→23:40)
[2018-01-16] MEDS: methylPREDNISolone SOD SUCC 125 MG/2 ML VIAL IV PUSH SCH ×3 (06:25→23:35)
--- NOTE | 2018-01-16 06:43 | HHI.CCPN ---
Subjective Remarks/Hospital Course Hospital Course: This is a 72yM with a reported history of COPD and osteogenesis imperfecta who presents for acute altered mental status and dark tarry stools. when he arrived , he was obtunded and so no additional information is available from him. His ex - who lives with him as well as his son are at bedside and provide most of the history. they state that [facility] goes to [facility] and [facility] his multiple prior fractures that he has, and since that time, he has had a slow decline over the last week. about 1-2 days ago, his ex- noticed him having new dark black tarry stools. yesterday he was somewhat altered and confused, and she tried to get him to seek medical attention, but today he was more altered. He does have a remote history of etoh abuse, but they deny any etoh at all in many years. Of note, his ex- did state that at the [facility] last week, they said his sodium was very low, although she does not know how low it was. In the emergency department, he was initially hypotensive and given 2L NS ivf which improved his blood pressure. His hgb is 8.2. the last hgb we have is from 07/2017 when it was 13. He also had a large melanic bowel movement in the emergency department. His sodium is 114 and K 2.7 on initial BMP. Critical care medicine is consulted to evaluate and manage his acute encephalopathy, his severe metabolic derangements, and his GI bleeding. ROS is unobtainable due to his mental status. Subjective: 01/14: mental status improving. sodium manjeet again to 129 despite adding additional free water yesterday. will add 1 mcg ddavp to curtail rise. now appears euvolemic. hgb stable. GI saw and recommends EGD. 01/15: Patient developed progressive hypoxemic and hypercarbic respiratory failure. Placed on BiPAP at around 4 AM. No improvement in mental status or hypercarbia. On my exam patient is on BiPAP unresponsive, last ABG showed a pH of 7.23 PCO2 of 80, PO2 of 86 on 60% FiO2. Patient clearly not protecting airway. Chest x-ray shows volume loss in the left lung but this appears similar to x-ray done on 07/27/2017. I had a brief discussion with family. They are inclined to give him a chance with intubation and treatment of COPD. If there is no improvement in 3-4 days they are willing to consider compassionate withdrawal given patient's comorbidities and severe kyphoscoliosis and osteogenesis imperfecta. I intubated and placed patient on mechanical ventilation. 01/16: Gas exchange acceptable after intubation and mechanical ventilation. CXR today pending, left lung opacified on prior films. Will review today's film when available and consider therapeutic bronchoscopy. Hgb continues to decline, source appears to be upper GI. Two units rbcs ordered last evening, repeat Hgb pending. Osmolality and sodium rise acceptable, will continue to attenuate with 1/2 NS. It is unlikely to me that this patient survives this hospitalization owing to multiple co-morbidities. We will continue aggressive care to improve pulmonary function while family decides on long-term care plan. GI plans to perform EGD to confirm source but patient's instability may preclude. Objective Vital Signs Date Time Temp Pulse Resp B/P (MAP) Pulse Ox O2 Delivery O2 Flow Rate FiO2 01/16/18 05:15 96 80 01/16/18 05:15 72 16 122/63 (82) 01/16/18 04:00 97.9 01/15/18 10:00 Bi-Pap 01/15/18 00:00 1.00 Intake and Output 01/16/18 01/16/18 01/17/18 08:00 16:00 00:00 Intake Total 2020 ml Balance 2020 ml Result Diagram: 01/15/18194701/15/181947 Other Results Laboratory Tests Test 01/15/18 14:32 01/15/18 16:26 01/16/18 05:11 Blood Gas Puncture Site RT RADIAL RT RADIAL RT RADIAL Blood Gas Patient Temperature 37.0 37.0 37.0 Blood Gas HCO3 32 mmol/L (22-26) 31 mmol/L (22-26) 29 mmol/L (22-26) Blood Gas Base Excess 5.3 mmol/L (-2-2) 5.2 mmol/L (-2-2) 4.8 mmol/L (-2-2) Blood Gas Oxygen Saturation 95 % (90-100) 97 % (90-100) 93 % (90-100) Arterial Blood pH 7.23 (7.380-7.420) 7.32 (7.380-7.420) 7.42 (7.380-7.420) Arterial Blood Partial Pressure CO2 80 mmHg (38-42) 62 mmHg (38-42) 46 mmHg (38-42) Arterial Blood Partial Pressure O2 86 mmHg (61-120) 162 mmHg (61-120) 67 mmHg (61-120) Arterial Blood Oxygen Content 10.6 Vol % (12.0-20.0) 11.1 Vol % (12.0-20.0) 12.3 Vol % (12.0-20.0) Arterial Blood Carboxyhemoglobin 1.9 % (0-4) 1.9 % (0-4) 1.9 % (0-4) Arterial Blood Methemoglobin 0.8 % (0-2) 0.9 % (0-2) 1.0 % (0-2) Blood Gas Hemoglobin 7.9 G/DL (12.0-16.0) 7.9 G/DL (12.0-16.0) 9.4 G/DL (12.0-16.0) Oxygen Delivery Device BIPAP VENT PRVCAC VENTILATOR Blood Gas Ventilator Setting IPAP 12/EPAP 5 [id number]/[id number]/[id number] PRVC/AC Blood Gas Inspired Oxygen 60 % 100 % 80 % Objective Remarks gen: elderly male, lying in bed, unresponsive on PRVC. heent: nc. at. perrl. mucous membranes moist. sclerae pale. neck: trachea midline. orally intubated. no jvd. severe flexion deformity of the neck chest: barrel chest noted. Air entry diminished bilaterally, alicia so left lung clements. Comfortable on vent. cv: normal rate, irregularly irregular rhythm. afib. abd: soft, nontender, nondistended. no guarding. bs few. extr: warm and well perfused. no edema. no clubbing. distal pulses 2+. neuro: Patient is unresponsive. Withdraws to noxious stimuli. Otherwise no spontaneous movements noted A/P Assessment and Plan Assessment: 72yM with acute metabolic encephalopathy, acute hypoxemic and hypercarbic respiratory failure, acute GI bleed, and severe life-threatening hyponatremia. Intubated today for acute COPD exacerbation and possible pneumonia, sepsis. Needs endoscopy for GI bleeding. continue to trend h&h. sodium is Continue 1/2 NS. Monitor Na closely. Critically ill requiring close sodium and hgb monitoring to prevent morbidity and mortality. Prior to intubation I discussed with the family. If no improvement in respiratory status in the next 3-4 days they will consider compassionate withdrawal given extensive comorbidities Plan by systems: Neurologic: Acute metabolic encephalopathy Chronic pain from multiple fractures Osteogenesis imperfecta - secondary to hyponatremia and poor cerebral perfusion from GI bleeding, and hypercapnia - frequent neuro checks - Propofol and fentanyl for sedation and ventilator synchrony - Daily sedation vacation starting in 24 hours Respiratory: Acute hypoxemic and hypercarbic respiratory failure Acute COPD exacerbation Probable pneumonia Left lung volume loss -Intubated and placed on mechanical ventilation ACV 16/500/8 FiO2 100%-titrate to keep sat above 90% -DuoNeb every 4 hours scheduled and as needed -Taper IV Solu-Medrol 40 mg every 12 hours -Check sputum culture, empiric cefepime -elevated HOB -Left lung volume loss appears to be chronic, x-ray on 07/27/2017 looked similar -CT of the chest to better evaluate if atelectasis does not improve in the next 24 hours Cardiovascular: Hypovolemic shock- resolved. atrial fibrillation - secondary to GI bleed. - s/p 2 liters NS, 2 units prbc. - 4 units crossmatch on hold - hold rate controlling drugs and anticoagulants for afib given bleeding. Renal: - keep polo catheter today -- Strict I/Os FEN/GI: Life-threatening Hyponatremia Life-threatening hypokalemia- resolving. Acute protein calorie malnutrition- moderate Active GI bleed -Replace electrolytes per protocol - hypovolemic hyponatremia. - trend sodiums q6h, sodium correction now seems to be appropriate - goal of 10 meq/24h: Given hypovolemic shock and end-organ hypoperfusion and need for rapid blood and fluid administration from GI bleed, overcorrection may be unavoidable to prevent organ damage from shock. - ddavp 1mcg iv x 1 given to attenuate rapid Na rise. - GI consult-did not do endoscopy today due to tenuous respiratory status. Now being intubated consider endoscopy today. - NPO - protonix and octreotide drips - Start TFs after EGD. Heme/ID: Acute anemia secondary to blood loss - serial h&h q6h -Monitor coags - daily cbc - no infectious etiology suspected at this time - no history of anticoagulant use. Endocrine: Hyperglycemia of critical illness -- SSI, medium scale, q6h Prophylaxis: GI Prophylaxis Protonix drip DVT Prophylaxis -- SCDs Hold pharmacologic DVT prophylaxis secondary to active GI bleed Lines: piv Polo 2 large-bore IVs at all times given active GI bleed. Dispo: remain in ICU. Critically ill and deteriorating despite aggressive resuscitative measures. This patient remains critically ill with one or more organ systems which are or may become a threat to life. I have spent in excess of 35 minutes discontinuously in the care and management of this patient. This time is exclusive of procedures, and includes, but is not limited to, evaluation of the patient, review of the medical record, discussions with family, consultants, nursing staff, or respiratory therapy, and documentation in the medical record. Thaddeus Garza MD Jan 16, 2018 06:43
[2018-01-16] MEDS: CHLORHEXIDINE 0.12% (ORAL KIT) 15 ML CUP MT SCH ×2 (08:00→17:26)
--- NOTE | 2018-01-16 08:21 | HHI.GIFU ---
Subjective Remarks Patient intubated unresponsive Objective Vitals I&O Vital Signs Date Time Temp Pulse Resp B/P (MAP) Pulse Ox O2 Delivery O2 Flow Rate FiO2 01/16/18 06:00 72 16 116/69 (85) 96 01/16/18 06:00 72 01/16/18 05:15 96 80 01/16/18 05:15 72 16 122/63 (82) 96 01/16/18 05:00 72 15 117/60 (79) 96 01/16/18 04:45 72 16 118/62 (80) 96 01/16/18 04:30 74 16 124/64 (84) 96 01/16/18 04:15 72 15 119/61 (80) 97 01/16/18 04:00 80 01/16/18 04:00 76 01/16/18 04:00 97.9 76 15 125/60 (81) 96 01/16/18 03:59 72 15 129/73 (91) 96 01/16/18 03:58 97.8 72 15 125/60 96 01/16/18 03:45 84 15 108/56 (73) 95 01/16/18 03:30 88 15 110/55 (73) 94 01/16/18 03:15 88 15 101/57 (72) 91 01/16/18 03:00 86 17 115/64 (81) 90 01/16/18 02:45 82 15 98/53 (68) 92 01/16/18 02:15 82 15 96/53 (67) 94 01/16/18 02:00 84 01/16/18 02:00 84 16 92/55 (67) 94 01/16/18 01:45 84 16 100/55 (70) 92 01/16/18 01:45 93 80 01/16/18 01:40 80 01/16/18 01:30 86 15 101/56 (71) 92 01/16/18 01:15 99.5 96 15 90/54 94 01/16/18 01:15 96 15 90/54 (66) 94 01/16/18 01:00 99.9 98 16 86/52 93 01/16/18 01:00 98 16 86/52 (63) 93 01/16/18 00:45 90 16 91/62 (72) 96 01/16/18 00:30 82 15 99/51 (67) 95 01/16/18 00:30 99.4 82 15 99/51 95 01/16/18 00:15 86 15 96/55 (69) 96 01/16/18 00:00 99.8 82 15 100/52 (68) 97 01/16/18 00:00 82 01/16/18 00:00 70 01/15/18 23:45 82 16 103/53 (70) 98 01/15/18 23:30 82 16 97/52 (67) 98 01/15/18 23:15 82 15 98/56 (70) 99 01/15/18 23:00 70 01/15/18 23:00 84 15 95/53 (67) 100 01/15/18 23:00 100 70 01/15/18 22:45 84 15 99/54 (69) 100 01/15/18 22:30 82 16 102/56 (71) 100 01/15/18 22:15 78 16 96/51 (66) 99 01/15/18 22:12 82 16 97/53 (68) 99 01/15/18 22:03 99.4 80 15 97/53 99 01/15/18 22:00 80 01/15/18 22:00 80 16 95/49 (64) 99 01/15/18 21:48 82 16 96/53 (67) 100 01/15/18 21:47 99.2 82 17 96/53 100 01/15/18 21:30 80 16 102/58 (73) 100 01/15/18 21:00 82 26 110/58 (75) 100 01/15/18 20:30 80 16 111/56 (74) 100 01/15/18 20:00 100 01/15/18 20:00 82 01/15/18 20:00 98.3 82 15 113/58 (76) 100 01/15/18 20:00 80 01/15/18 19:30 80 16 103/59 (74) 100 01/15/18 19:25 100 80 01/15/18 19:00 80 17 93/56 (68) 100 01/15/18 18:00 88 01/15/18 18:00 80 15 102/55 (71) 01/15/18 17:00 80 16 93/52 (66) 01/15/18 16:45 97 80 4/1/18 16:00 100 01/15/18 16:00 82 01/15/18 16:00 97.8 82 16 98/55 (69) 01/15/18 15:50 98 100 01/15/18 15:00 90 33 128/59 (82) 01/15/18 15:00 82 33 110/93 (99) 01/15/18 14:00 90 33 132/62 (85) 01/15/18 14:00 90 01/15/18 13:36 97 60 01/15/18 13:00 87 28 140/62 (88) 01/15/18 12:00 97.9 88 28 134/62 (86) 99 01/15/18 12:00 88 01/15/18 11:00 85 28 135/57 (83) 97 01/15/18 10:00 93 Bi-Pap 60 01/15/18 10:00 86 01/15/18 10:00 91 60 01/15/18 10:00 84 24 139/64 (89) 93 01/15/18 09:00 85 20 126/60 (82) 92 I/O 01/15/18 01/15/18 01/15/18 01/16/18 01/16/18 01/16/18 07:00 15:00 23:00 07:00 15:00 23:00 Intake Total 500 ml 0 ml 850 ml 2020 ml Output Total 900 ml 825 ml 625 ml Balance 500 ml -900 ml 25 ml 1395 ml Intake Oral 0 ml 0 ml IV Total 500 ml 725 ml 1100 ml Packed Cells 800 ml Blood Product IV Normal Saline Flush 125 ml 120 ml Output Urine Total 900 ml 825 ml 625 ml Stool Total 0 ml 0 ml 0 ml Laboratory Laboratory Tests Test 01/15/18 08:50 01/15/18 09:10 01/15/18 14:32 01/15/18 14:35 Sodium Level 134 137 Hemoglobin 7.8 7.9 Hematocrit 23.7 24.0 Blood Gas Puncture Site RT RADIAL Blood Gas Patient Temperature 37.0 Blood Gas HCO3 32 Blood Gas Base Excess 5.3 Blood Gas Oxygen Saturation 95 Arterial Blood pH 7.23 Arterial Blood Partial Pressure CO2 80 Arterial Blood Partial Pressure O2 86 Arterial Blood Oxygen Content 10.6 Arterial Blood Carboxyhemoglobin 1.9 Arterial Blood Methemoglobin 0.8 Blood Gas Hemoglobin 7.9 Oxygen Delivery Device BIPAP Blood Gas Ventilator Setting IPAP 12/EPAP 5 Blood Gas Inspired Oxygen 60 Test 01/15/18 16:26 01/15/18 19:48 01/16/18 05:11 Blood Gas Puncture Site RT RADIAL RT RADIAL Blood Gas Patient Temperature 37.0 37.0 Blood Gas HCO3 31 29 Blood Gas Base Excess 5.2 4.8 Blood Gas Oxygen Saturation 97 93 Arterial Blood pH 7.32 7.42 Arterial Blood Partial Pressure CO2 62 46 Arterial Blood Partial Pressure O2 162 67 Arterial Blood Oxygen Content 11.1 12.3 Arterial Blood Carboxyhemoglobin 1.9 1.9 Arterial Blood Methemoglobin 0.9 1.0 Blood Gas Hemoglobin 7.9 9.4 Oxygen Delivery Device VENT PRVCAC VENTILATOR Blood Gas Ventilator Setting VT500/RR16/PEEP5 PRVC/AC Blood Gas Inspired Oxygen 100 80 Hemoglobin 6.9 Hematocrit 19.8 Sodium Level 140 Date/Time Source Procedure Growth Status 01/15/18 19:35 Blood Peripheral Aerobic Blood Culture Pending Received 01/15/18 19:35 Blood Peripheral Anaerobic Blood Culture Pending Received 01/15/18 16:00 Sputum Endotracheal Gram Stain Pending Received 01/15/18 16:00 Sputum Endotracheal Sputum Culture Pending Received Imaging Last Impressions Chest X-Ray 01/15/18 1432 Signed Impressions: Service Date/Time: Monday, January 15, 2018 14:38 - CONCLUSION: 1. Opacified left hemithorax 2. Diffuse interstitial prominence right lung Gunnar Hernandez MD Head CT 01/13/18 0000 Signed Impressions: Service Date/Time: Saturday, January 13, 2018 07:54 - CONCLUSION: 1. Central cerebral atrophy. 2. Mild periventricular and subcortical white matter small vessel ischemic changes bilaterally. 3. No acute infarct, acute hemorrhage, mass effect or extra-axial fluid collections. Milan Mcgraw MD Physical Exam HEENT: normocephalic; atraumatic; intubated NECK: Neck is supple, no JVD, CHEST: Chest is clear to auscultation and percussion. Few crackles bilaterally CARDIAC: Regular rate and rhythm bradycardic ABDOMEN: Soft, nondistended, nontender; no hepatosplenomegaly; bowel sounds are present in all four quadrants. EXTREMITIES: No clubbing, cyanosis, or edema. SKIN: Normal; no rash; no jaundice. FIELD SERVICES ANALYST: Unresponsive Assessment and Plan Assessment: (1) Upper GI bleed ICD Codes: K92.2 - Gastrointestinal hemorrhage, unspecified Status: Acute (2) Anemia ICD Codes: D64.9 - Anemia, unspecified Status: Acute Plan 1. Upper GI bleeding producing anemia. Possible underlying causes include peptic ulcer disease ,erosive reflux esophagitis, angiectasia and neoplasia No sign of active bleeding at this time hemoglobin is stable still confused 01/15/2018 upper GI bleed with anemia, hemoglobin stable, patient had duration of his pulmonary status requiring him to be on high FiO2 and CPAP, no sign of active bleeding at this time, anesthesia prefer not to do the procedure at this time until the patient is more stable 01/16/18 patient appears to be declining requiring more O2 his FiO2 is 80% he has become bradycardic he is currently a DNR his hemoglobin is dropping Recommendations Patient unstable for endoscopy at this point family is coming in to discuss possibly comfort care Continue monitoring H&H and transfuse as needed Continue PPI Marco A Bright MD Jan 16, 2018 08:21
[2018-01-16 09:12] LABS: BASOPHIL % 0.2 % (0.0-2.0); EOSINOPHIL % 0.1 % (0.0-4.0); HEMOGLOBIN 9.9 GM/DL (13.0-17.0); LYMPH % 2.1 % (9.0-44.0); LYMPHOCYTE # 0.4 TH/MM3 (1.0-4.8); MEAN CELL VOLUME 90.9 FL (80.0-100.0); MEAN PLATELET VOLUME 7.1 FL (7.0-11.0); MONO % 1.4 % (0.0-8.0); MONOCYTE # 0.3 TH/MM3 (0-0.9); NEUT % 96.2 % (16.0-70.0); PLATELET COUNT 248 TH/MM3 (150-450); RED CELL DISTRIBUTION WIDTH 16.7 % (11.6-17.2); WHITE BLOOD COUNT 19.8 TH/MM3 (4.0-11.0)
[2018-01-16 09:24] LABS: INTERNATIONAL NORMALIZED RATIO 1.1 RATIO; PROTHROMBIN TIME - PATIENT 10.7 SEC (9.8-11.6)
--- NOTE | 2018-01-16 09:40 | RADRPT ---
EXAM DATE/TIME: 01/16/2018 01:05 [facility] COMPARISON: CHEST SINGLE AP, January 15, 2018, 16:27. INDICATIONS : Short of breath MEDICAL HISTORY : Chronic obstructive pulmonary disease. SURGICAL HISTORY : None. ENCOUNTER: Subsequent ACUITY: 2 days PAIN SCORE: Non-responsive. LOCATION: Bilateral chest FINDINGS: ET tube stable in position with the tip directed posteriorly and located 2 cm above the lenin. Comp lete opacification of the left hemithorax causing complete obscuration of the heart borders and hemid iaphragm. Patchy areas of infiltrate throughout most of the right lung has increased in severity whe n compared to prior. There is some aerated right apical lung. Osseous structures are osteopenic. CONCLUSION: 1. Increasing parenchymal opacities in the right hemithorax. 2. Stable complete opacification left hemithorax Altaf Malave MD on January 16, 2018 at 9:36 Board Certified Radiologist. This report was verified electronically.
[2018-01-16 09:50] LABS: ALBUMIN 2.2 GM/DL (3.4-5.0); BICARBONATE 28.5 MEQ/L (21.0-32.0); GLUCOSE,RANDOM 136 MG/DL (74-106)
[2018-01-16 10:11] LABS: ALKALINE PHOSPHATASE 68 U/L (45-117); ALT (GPT) 179 U/L (12-78); AST (GOT) 79 U/L (15-37); BLOOD UREA NITROGEN 15 MG/DL (7-18); CHLORIDE 104 MEQ/L (98-107); CREATININE 0.55 MG/DL (0.60-1.30); GLOMERULAR FILTRATION RATE 146 ML/MIN (>89); SODIUM (NA) 140 MEQ/L (136-145); TOTAL BILIRUBIN ADULT 1.4 MG/DL (0.2-1.0); TOTAL PROTEIN 4.8 GM/DL (6.4-8.2)
--- NOTE | 2018-01-16 11:16 | PD.CONS ---
Consult Service Palliative Care Consult Requested By Dr. Garza . Primary Care Physician Shashi Moon MD Reason for Consultation a. To assist with evaluation and management of symptoms including: Diarrhea , weakness, confusion b. To assist medical decision maker(s) with: better understanding of current medical conditions; weighing benefits/burdens of medical treatment options; making medical treatment decisions. (Chastity Barton) HPI History of Present Illness This is a 72-year-old male admitted with dark tarry stools, diarrhea, weakness and confusion, with a history of osteogenesis imperfecta, hypertension , COPD, osteoarthritis and hyperlipidemia. He follows at the [facility] for his multiple medical problems to include osteogenesis imperfecta, from which he has suffered multiple bone fractures. He had been on oxycodone and morphine for the chronic discomfort related to the multiple fractures but was recently taken off morphine and his oxycodone dose and quantity prescribed was cut in half by the [facility]. Since the cessation of morphine and the severe decrease in his oxycodone, he has suffered a continual decline, per his ex- Darlene, with whom he lives. He has been complaining of severe pain, less interactive and asking to "be left alone". His confusion and increased and his mental status continued to decline until he was brought to the emergency room where he was given fluid resuscitation of 2 L of normal saline. His hemoglobin was 8.2, down from 13 when seen 07/2017, sodium was 114 and potassium 2.7 on initial evaluation. While in the emergency room he had a large melanotic stool. ED course: * Laboratory: ABG pH 7.46, PCO2 47, PaO2 312, HCO3 33, base excess +8.3, 98% on 15 L nonrebreather mask, WBC 9.3, hemoglobin 8.2, hematocrit 23.3, platelets 351 , sodium 114, potassium 2.7, chloride 72, carbon dioxide 35.2, BUN 68, creatinine 0.88, random glucose 143, protein corrected calcium 8.7, normal transaminase, troponin 0 0.05, B natruretic peptide 43, TSH 1.030, urinalysis was negative. * Radiology: CT of the head showed central cerebral atrophy with mild periventricular and subcortical white matter small vessel ischemic changes bilaterally with no acute infarct, acute hemorrhage, mass-effect or extra-axial fluid collections. Consultations: * GI: Consulted for anemia and melanotic stools, felt to be an upper GI bleed. Recommended a EGD for further evaluation, serial hemoglobin monitoring, IV Protonix. Patient is currently on a Protonix drip and octreotide. After electrolyte replenishment, his mental status began to improve and hemoglobin remained stable. On 01/15 patient developed worsening hypoxemic and hypercarbic respiratory failure and was placed on BiPAP with no significant improvement in mental status or hypercarbia. ABG showed hypoxemic respiratory acidosis with a pH of 7.23, PCO2 of 80, PaO2 of 86 on 60% FiO2. After discussion with the family they decided to try a short course of intubation and mechanical ventilation to see if there was any improvement but felt at that time if no improvement in 3-4 days they would be willing to consider compassionate withdrawal given patient's multiple comorbidities. He remains in the intensive care unit, intubated, sedated lightly on propofol 10 mcg/kg/min and fentanyl 50 mcg an hour. He is unresponsive to voice, withdraws to pain, vent settings PRVC/AC 500/16/80%/PEEP 8/PS 7. Palliative care was consulted to assist the family in goals of care and symptom management. . Function/Cognitive Trajectory Since July 2017 when he left home to escape [place], he has had a steady decline, according to his ex-. He has had a severe worsening of his back discomfort, decline in his ability to move and manage his ADLs. She has been his caregiver for over 30 years. Over the last 2 weeks [facility], his decline has increased in trajectory and progression. . (Chastity Barton) Review of Systems ROS Limitations: Intubated (Patient is nonverbal and unable to provide their own ROS. 10 part ROS taken as best as possible from medical record and available family.) Constitutional: COMPLAINS OF: Generalized weakness Gastrointestinal: COMPLAINS OF: Diarrhea Psychiatric: COMPLAINS OF: Confusion (Chastity Barton) Past Family Social History Coded Allergies: No Known Allergies (Verified , 07/27/17) Past Medical History Osteogenesis imperfecta Scoliosis Kyphosis Hyperlipidemia Hypertension COPD History of alcoholism Alcohol related cardiomyopathy . Past Surgical History Left distal femur open reduction internal fixation Left hip open reduction internal fixation Left knee revision repair of patellar tendon avulsion from patella Left knee patellar tendon repair Left proximal tibia removal of large screws and washer Right femur fracture open reduction internal fixation Bilateral herniorrhaphies . Reported Medications Reported Meds & Active Scripts Active Potassium Chloride ER (Potassium Chloride) 20 Meq Tab 20 Meq PO BID Hydrocodone-Acetaminophen 5-325 mg Tab 1 Tab PO Q6H PRN Metoprolol Tartrate 25 Mg Tab 1 Tab PO BID Reported Colace (Docusate Sodium) 100 Mg Capsule 100 Mg PO BID Biscolax Supp (Bisacodyl) 10 Mg Supp 1 Mg RECTAL DAILY PRN Hydrochlorothiazide 25 Mg Tab 25 Mg PO DAILY Symbicort Inh (Budesonide/Formoterol Fumarate) 160-4.5 Mcg/Act Aero 1 Puff INH Q12HR Proventil Hfa 6.7 GM Inh (Albuterol Sulfate) 90 Mcg/Act Aer 2 Puff INH Q6H PRN Aspirin 81 Mg Chew 81 Mg CHEW DAILY Simvastatin 10 Mg Tab 10 Mg PO DAILY . Current Medications Medications (Trade) Dose Ordered Sig/Jeet Route Start Time Stop Time Status Last Admin (NS Flush) 2 ml UNSCH PRN IV FLUSH 01/13/18 06:00 Octreotide Acetate 500 mcg/ Sodium Chloride 500.5 ml @ 50 mls/hr Q10H1M IV 01/13/18 06:51 01/16/18 01:54 Pantoprazole Sodium 80 mg/ Sodium Chloride 100 ml @ 10 mls/hr Q10H IV 01/13/18 08:00 01/16/18 06:00 Potassium Chloride 100 ml @ 50 mls/hr Q2H PRN IV 01/13/18 07:30 Potassium Chloride 100 ml @ 50 mls/hr Q2H PRN IV 01/13/18 07:30 01/14/18 13:32 (K-Lyte Cl Eff) 50 meq UNSCH PRN PO 01/13/18 07:30 Potassium Chloride 100 ml @ 25 mls/hr UNSCH PRN IV 01/13/18 07:30 Potassium Chloride 100 ml @ 50 mls/hr Q2H PRN IV 01/13/18 07:30 Magnesium Sulfate 4 gm/Sodium Chloride 100 ml @ 50 mls/hr UNSCH PRN IV 01/13/18 07:30 (Mag-Ox) 800 mg UNSCH PRN PO 01/13/18 07:30 Magnesium Sulfate 2 gm/Sodium Chloride 100 ml @ 50 mls/hr UNSCH PRN IV 01/13/18 07:30 (K-Phos) 2,000 mg Q4H PRN PO 01/13/18 07:30 Sodium Phosphate 30 mmol/Sodium Chloride 250 ml @ 42 mls/hr UNSCH PRN IV 01/13/18 07:30 (K-Phos) 2,000 mg UNSCH PRN PO/TUBE 01/13/18 07:30 Potassium Phosphate 30 mmol/ Sodium Chloride 260 ml @ 42 mls/hr UNSCH PRN IV 01/13/18 07:30 (D50w (Vial) Inj) 25 ml UNSCH PRN IV PUSH 01/13/18 07:30 (NovoLIN R SUPPLEMENTAL SCALE) 1 Q6HR SQ 01/13/18 12:00 (Zofran Inj) 4 mg Q6H PRN IV PUSH 01/13/18 08:00 (Duoneb Neb) 1 ampule Q2HR NEB PRN INH 01/13/18 08:00 01/13/18 20:27 Miscellaneous Information 1 Q361D XX 01/13/18 07:30 01/13/18 07:30 (Chlorhexidine 2% Cloth) 3 pack Taper DAILY@04 TOP 01/14/18 04:00 01/10/19 03:59 01/16/18 03:29 (Chlorhexidine 2% Cloth) 3 pack UNSCH PRN TOP 01/13/18 07:30 Sodium Chloride 1,000 ml @ 50 mls/hr Q20H IV 01/13/18 17:15 01/16/18 05:40 (Peridex 0.12% Liq) 15 ml BID@08,20 MT 01/15/18 20:00 01/16/18 08:00 Propofol 100 ml @ 2.319 mls/ hr TITRATE PRN IV 01/15/18 16:00 01/15/18 21:56 Cefepime HCl 2000 mg/Sodium Chloride 100 ml @ 200 mls/hr Q8H IV 01/15/18 17:00 01/16/18 08:44 (Duoneb Neb) 1 ampule Q4HR NEB NEB 01/15/18 20:00 01/16/18 07:43 (SoluMEDROL INJ) 40 mg Q8HR IV PUSH 01/15/18 17:00 01/16/18 06:25 Fentanyl Citrate 250 ml @ 5 mls/hr TITRATE PRN IV 01/15/18 16:15 01/15/18 19:00 . Family History No history of colorectal cancer or polyps in the family. He has 2 sons who also inherited osteogenesis imperfecta. One son has a daughter who has also been diagnosed with this. Family was unable to provide any history of his parents. . Substance Use Tobacco: Smoked for about 15 years as a young man but has quit for greater than 40 years. Alcohol: Drank beer excessively, described as the family as an alcoholic but he quit 14 years ago. Prescription med abuse: No history of prescription med abuse Illicits: No history of illicit drug use. . Psychosocial History He was born in [place], [place] and completed his high school education there. 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 He and his ex-, Darlene, moved to [place] in 1997, where they have lived since that time. . Spiritual/Cultural Factors He is a Amish by steffi but has not been attending faith. (Chastity Barton) Living Will: Never completed Health Care Surrogate: Never completed Durable Power of Hooker Up: Never completed Health Care Surrogate(s): Not completed. . Documented care wishes: None completed. . Today's verbally stated goals: Patient intubated unable to speak. . Family/friends goals: Family at this time wishes to allow up to 3-4 days to see if patient has any substantial recovery but is considering compassionate withdrawal. . Ethical and Legal Issues None noted. . (Chastity Barton) Physical Exam Vital Signs Date Time Temp Pulse Resp B/P (MAP) Pulse Ox O2 Delivery O2 Flow Rate FiO2 01/16/18 09:25 95 80 01/16/18 07:40 96 80 01/16/18 06:00 72 16 116/69 (85) 96 01/16/18 06:00 72 01/16/18 05:15 96 80 01/16/18 05:15 72 16 122/63 (82) 96 01/16/18 05:00 72 15 117/60 (79) 96 01/16/18 04:45 72 16 118/62 (80) 96 01/16/18 04:30 74 16 124/64 (84) 96 4/2/18 04:15 72 15 119/61 (80) 97 01/16/18 04:00 80 18 04:00 76 /18 04:00 97.9 76 15 125/60 (81) 96 18 03:59 72 15 129/73 (91) 96 18 03:58 97.8 72 15 125/60 96 01/16/18 03:45 84 15 108/56 (73) 95 18 03:30 88 15 110/55 (73) 94 18 03:15 88 15 101/57 (72) 91 01/16/18 03:00 86 17 115/64 (81) 90 01/16/18 02:45 82 15 98/53 (68) 92 01/16/18 02:15 82 15 96/53 (67) 94 01/16/18 02:00 84 01/16/18 02:00 84 16 92/55 (67) 94 01/16/18 01:45 84 16 100/55 (70) 92 01/16/18 01:45 93 80 01/16/18 01:40 80 01/16/18 01:30 86 15 101/56 (71) 92 01/16/18 01:15 99.5 96 15 90/54 94 01/16/18 01:15 96 15 90/54 (66) 94 01/16/18 01:00 99.9 98 16 86/52 93 01/16/18 01:00 98 16 86/52 (63) 93 01/16/18 00:45 90 16 91/62 (72) 96 01/16/18 00:30 82 15 99/51 (67) 95 18 00:30 99.4 82 15 99/51 95 18 00:15 86 15 96/55 (69) 96 01/16/18 00:00 99.8 82 15 100/52 (68) 97 01/16/18 00:00 82 01/16/18 00:00 70 01/15/18 23:45 82 16 103/53 (70) 98 18 23:30 82 16 97/52 (67) 98 01/15/18 23:15 82 15 98/56 (70) 99 01/15/18 23:00 70 01/15/18 23:00 84 15 95/53 (67) 100 01/15/18 23:00 100 70 01/15/18 22:45 84 15 99/54 (69) 100 01/15/18 22:30 82 16 102/56 (71) 100 01/15/18 22:15 78 16 96/51 (66) 99 01/15/18 22:12 82 16 97/53 (68) 99 01/15/18 22:03 99.4 80 15 97/53 99 01/15/18 22:00 80 01/15/18 22:00 80 16 95/49 (64) 99 01/15/18 21:48 82 16 96/53 (67) 100 01/15/18 21:47 99.2 82 17 96/53 100 01/15/18 21:30 80 16 102/58 (73) 100 01/15/18 21:00 82 26 110/58 (75) 100 01/15/18 20:30 80 16 111/56 (74) 100 01/15/18 20:00 100 01/15/18 20:00 82 01/15/18 20:00 98.3 82 15 113/58 (76) 100 01/15/18 20:00 80 01/15/18 19:30 80 16 103/59 (74) 100 01/15/18 19:25 100 80 01/15/18 19:00 80 17 93/56 (68) 100 01/15/18 18:00 88 01/15/18 18:00 80 15 102/55 (71) 01/15/18 17:00 80 16 93/52 (66) 01/15/18 16:45 97 80 01/15/18 16:00 100 01/15/18 16:00 82 01/15/18 16:00 97.8 82 16 98/55 (69) 01/15/18 15:50 98 100 01/15/18 15:00 90 33 128/59 (82) 01/15/18 15:00 82 33 110/93 (99) 01/15/18 14:00 90 33 132/62 (85) 01/15/18 14:00 90 01/15/18 13:36 97 60 01/15/18 13:00 87 28 140/62 (88) 01/15/18 12:00 97.9 88 28 134/62 (86) 99 01/15/18 12:00 88 . Exam CONSTITUTIONAL/GENERAL: This is an adequately nourished patient, in no apparent distress. TUBES/LINES/DRAINS: Bilateral PIV's, ETT, Garcia catheter. SKIN: No jaundice, rashes, or lesions. Ecchymoses on upper extremities. No wounds seen anteriorly. Skin temperature appropriate. Not diaphoretic. HEAD: Atraumatic. Normocephalic. EYES: Pupils pinpoint, not reactive. . No scleral icterus, positive scleral edema. No injection or drainage. Fundi not examined. ENT: Nose without bleeding or purulent drainage. Orally intubated, oral tissues moist. NECK: Trachea midline. Supple. No palpable thyroid enlargement or nodularity. CARDIOVASCULAR: Regular rate and rhythm without murmurs, gallops, or rubs. No JVD. Peripheral pulses diminished, symmetric. RESPIRATORY/CHEST: Left with minimal breath sounds, right diminished without adventitious sounds. Barrel chest noted. GASTROINTESTINAL: Abdomen soft, nondistended. No hepato-splenomegaly, or palpable masses. No guarding. Bowel sounds present. GENITOURINARY: Without palpable bladder distension. Garcia catheter in place. MUSCULOSKELETAL: Extremities without clubbing, cyanosis, or edema. No mottling or clubbing. LYMPHATICS: No palpable cervical or supraclavicular adenopathy. NEUROLOGICAL: Intubated, sedated. PSYCHIATRIC: Sedated. . (Chastity Barton) Diagnostic Tests Laboratory Laboratory Tests Test 01/13/18 14:43 01/13/18 21:00 01/14/18 03:45 01/14/18 09:39 Hemoglobin 8.2 GM/DL (13.0-17.0) 7.9 GM/DL (13.0-17.0) 10.1 GM/DL (13.0-17.0) 9.6 GM/DL (13.0-17.0) Hematocrit 22.9 % (39.0-51.0) 23.4 % (39.0-51.0) 29.9 % (39.0-51.0) 28.2 % (39.0-51.0) Sodium Level 124 MEQ/L (136-145) 124 MEQ/L (136-145) 129 MEQ/L (136-145) 130 MEQ/L (136-145) Potassium Level 3.7 MEQ/L (3.5-5.1) 3.2 MEQ/L (3.5-5.1) White Blood Count 13.6 TH/MM3 (4.0-11.0) Red Blood Count 3.28 MIL/MM3 (4.50-5.90) Mean Corpuscular Volume 91.1 FL (80.0-100.0) Mean Corpuscular Hemoglobin 30.8 PG (27.0-34.0) Mean Corpuscular Hemoglobin Concent 33.8 % (32.0-36.0) Red Cell Distribution Width 13.4 % (11.6-17.2) Platelet Count 255 TH/MM3 (150-450) Mean Platelet Volume 7.6 FL (7.0-11.0) Prothrombin Time 11.6 SEC (9.8-11.6) Prothromb Time International Ratio 1.1 RATIO Activated Partial Thromboplast Time 19.9 SEC (24.3-30.1) Blood Urea Nitrogen 57 MG/DL (7-18) Creatinine 0.62 MG/DL (0.60-1.30) Random Glucose 128 MG/DL (74-106) Calcium Level 7.5 MG/DL (8.5-10.1) Chloride Level 93 MEQ/L (98-107) Carbon Dioxide Level 27.6 MEQ/L (21.0-32.0) Anion Gap 8 MEQ/L (5-15) Estimat Glomerular Filtration Rate 127 ML/MIN (>89) Test 01/14/18 15:15 01/14/18 21:25 01/15/18 02:30 01/15/18 04:00 Hemoglobin 9.2 GM/DL (13.0-17.0) 8.9 GM/DL (13.0-17.0) 7.3 GM/DL (13.0-17.0) 8.1 GM/DL (13.0-17.0) Hematocrit 26.9 % (39.0-51.0) 26.4 % (39.0-51.0) 21.7 % (39.0-51.0) 24.6 % (39.0-51.0) Sodium Level 130 MEQ/L (136-145) 133 MEQ/L (136-145) 135 MEQ/L (136-145) 134 MEQ/L (136-145) White Blood Count 15.6 TH/MM3 (4.0-11.0) Red Blood Count 2.65 MIL/MM3 (4.50-5.90) Mean Corpuscular Volume 92.7 FL (80.0-100.0) Mean Corpuscular Hemoglobin 30.7 PG (27.0-34.0) Mean Corpuscular Hemoglobin Concent 33.1 % (32.0-36.0) Red Cell Distribution Width 13.9 % (11.6-17.2) Platelet Count 273 TH/MM3 (150-450) Mean Platelet Volume 7.1 FL (7.0-11.0) Prothrombin Time 11.0 SEC (9.8-11.6) Prothromb Time International Ratio 1.1 RATIO Activated Partial Thromboplast Time 20.6 SEC (24.3-30.1) Blood Urea Nitrogen 25 MG/DL (7-18) Creatinine 0.62 MG/DL (0.60-1.30) Random Glucose 139 MG/DL (74-106) Calcium Level 7.9 MG/DL (8.5-10.1) Potassium Level 3.8 MEQ/L (3.5-5.1) Chloride Level 98 MEQ/L (98-107) Carbon Dioxide Level 32.8 MEQ/L (21.0-32.0) Anion Gap 3 MEQ/L (5-15) Estimat Glomerular Filtration Rate 127 ML/MIN (>89) Test 01/15/18 04:45 01/15/18 08:50 01/15/18 09:10 01/15/18 14:32 Blood Gas Puncture Site RT RADIAL RT RADIAL Blood Gas Patient Temperature 37.0 37.0 Blood Gas HCO3 32 mmol/L (22-26) 32 mmol/L (22-26) Blood Gas Base Excess 4.1 mmol/L (-2-2) 5.3 mmol/L (-2-2) Blood Gas Oxygen Saturation 94 % (90-100) 95 % (90-100) Arterial Blood pH 7.21 (7.380-7.420) 7.23 (7.380-7.420) Arterial Blood Partial Pressure CO2 82 mmHg (38-42) 80 mmHg (38-42) Arterial Blood Partial Pressure O2 91 mmHg (61-120) 86 mmHg (61-120) Arterial Blood Oxygen Content 10.7 Vol % (12.0-20.0) 10.6 Vol % (12.0-20.0) Arterial Blood Carboxyhemoglobin 2.2 % (0-4) 1.9 % (0-4) Arterial Blood Methemoglobin 1.0 % (0-2) 0.8 % (0-2) Blood Gas Hemoglobin 8.0 G/DL (12.0-16.0) 7.9 G/DL (12.0-16.0) Oxygen Delivery Device Non-Rebreathing Mask BIPAP Blood Gas Liter Flow 15 L/M Sodium Level 134 MEQ/L (136-145) Hemoglobin 7.8 GM/DL (13.0-17.0) Hematocrit 23.7 % (39.0-51.0) Blood Gas Ventilator Setting IPAP 12/EPAP 5 Blood Gas Inspired Oxygen 60 % Test 01/15/18 14:35 01/15/18 16:26 01/15/18 19:48 01/16/18 05:11 Hemoglobin 7.9 GM/DL (13.0-17.0) 6.9 GM/DL (13.0-17.0) Hematocrit 24.0 % (39.0-51.0) 19.8 % (39.0-51.0) Sodium Level 137 MEQ/L (136-145) 140 MEQ/L (136-145) Blood Gas Puncture Site RT RADIAL RT RADIAL Blood Gas Patient Temperature 37.0 37.0 Blood Gas HCO3 31 mmol/L (22-26) 29 mmol/L (22-26) Blood Gas Base Excess 5.2 mmol/L (-2-2) 4.8 mmol/L (-2-2) Blood Gas Oxygen Saturation 97 % (90-100) 93 % (90-100) Arterial Blood pH 7.32 (7.380-7.420) 7.42 (7.380-7.420) Arterial Blood Partial Pressure CO2 62 mmHg (38-42) 46 mmHg (38-42) Arterial Blood Partial Pressure O2 162 mmHg (61-120) 67 mmHg (61-120) Arterial Blood Oxygen Content 11.1 Vol % (12.0-20.0) 12.3 Vol % (12.0-20.0) Arterial Blood Carboxyhemoglobin 1.9 % (0-4) 1.9 % (0-4) Arterial Blood Methemoglobin 0.9 % (0-2) 1.0 % (0-2) Blood Gas Hemoglobin 7.9 G/DL (12.0-16.0) 9.4 G/DL (12.0-16.0) Oxygen Delivery Device VENT PRVCAC VENTILATOR Blood Gas Ventilator Setting VT500/RR16/[id number] PRVC/AC Blood Gas Inspired Oxygen 100 % 80 % Test 01/16/18 09:05 White Blood Count 19.8 TH/MM3 (4.0-11.0) Red Blood Count 3.30 MIL/MM3 (4.50-5.90) Hemoglobin 9.9 GM/DL (13.0-17.0) Hematocrit 30.0 % (39.0-51.0) Mean Corpuscular Volume 90.9 FL (80.0-100.0) Mean Corpuscular Hemoglobin 30.0 PG (27.0-34.0) Mean Corpuscular Hemoglobin Concent 33.0 % (32.0-36.0) Red Cell Distribution Width 16.7 % (11.6-17.2) Platelet Count 248 TH/MM3 (150-450) Mean Platelet Volume 7.1 FL (7.0-11.0) Neutrophils (%) (Auto) 96.2 % (16.0-70.0) Lymphocytes (%) (Auto) 2.1 % (9.0-44.0) Monocytes (%) (Auto) 1.4 % (0.0-8.0) Eosinophils (%) (Auto) 0.1 % (0.0-4.0) Basophils (%) (Auto) 0.2 % (0.0-2.0) Neutrophils # (Auto) 19.0 TH/MM3 (1.8-7.7) Lymphocytes # (Auto) 0.4 TH/MM3 (1.0-4.8) Monocytes # (Auto) 0.3 TH/MM3 (0-0.9) Eosinophils # (Auto) 0.0 TH/MM3 (0-0.4) Basophils # (Auto) 0.0 TH/MM3 (0-0.2) CBC Comment DIFF FINAL Differential Comment Prothrombin Time 10.7 SEC (9.8-11.6) Prothromb Time International Ratio 1.1 RATIO Activated Partial Thromboplast Time 21.6 SEC (24.3-30.1) Blood Urea Nitrogen 15 MG/DL (7-18) Creatinine 0.55 MG/DL (0.60-1.30) Random Glucose 136 MG/DL (74-106) Total Protein 4.8 GM/DL (6.4-8.2) Albumin 2.2 GM/DL (3.4-5.0) Calcium Level 8.0 MG/DL (8.5-10.1) Alkaline Phosphatase 68 U/L (45-117) Aspartate Amino Transf (AST/SGOT) 79 U/L (15-37) Alanine Aminotransferase (ALT/SGPT) 179 U/L (12-78) Total Bilirubin 1.4 MG/DL (0.2-1.0) Sodium Level 140 MEQ/L (136-145) Potassium Level 3.7 MEQ/L (3.5-5.1) Chloride Level 104 MEQ/L (98-107) Carbon Dioxide Level 28.5 MEQ/L (21.0-32.0) Anion Gap 8 MEQ/L (5-15) Estimat Glomerular Filtration Rate 146 ML/MIN (>89) . (Chastity Barton) Result Diagram: 01/16/1890401/16/1805 Microbiology Microbiology Date/Time Source Procedure Growth Status 01/15/18 19:35 Blood Peripheral Aerobic Blood Culture - Preliminary NO GROWTH IN 1 DAY Resulted 01/15/18 19:35 Blood Peripheral Anaerobic Blood Culture - Preliminary NO GROWTH IN 1 DAY Resulted 01/15/18 19:30 Blood Peripheral Aerobic Blood Culture - Preliminary NO GROWTH IN 1 DAY Resulted 01/15/18 19:30 Blood Peripheral Anaerobic Blood Culture - Preliminary NO GROWTH IN 1 DAY Resulted 01/15/18 16:00 Sputum Endotracheal Gram Stain - Final Resulted 01/15/18 16:00 Sputum Endotracheal Sputum Culture Pending Resulted Imaging Last Impressions Chest X-Ray 01/16/18 0600 Signed Impressions: Service Date/Time: Tuesday, January 16, 2018 01:05 - CONCLUSION: 1. Increasing parenchymal opacities in the right hemithorax. 2. Stable complete opacification left hemithorax Altaf Malave MD Head CT 01/13/18 0000 Signed Impressions: Service Date/Time: Saturday, January 13, 2018 07:54 - CONCLUSION: 1. Central cerebral atrophy. 2. Mild periventricular and subcortical white matter small vessel ischemic changes bilaterally. 3. No acute infarct, acute hemorrhage, mass effect or extra-axial fluid collections. Milan Mcgraw MD Procedures 01/13: Left radial arterial line placement 01/15: Endotracheal intubation due to hypoxemic and hypercarbic respiratory failure. . (Chastity Barton) Patient/Family Conference Present at Family Conference: Spoke with son Ezra and ex- Darlene at length regarding patient's clinical condition, past medical, social and psychosocial history. Reviewed family is goals of care. Plan is in progress for family members to attend for visit and if no significant improvement will likely transition to compassionate withdrawal , either at the hospital or at the hospice care center. They wish to visit the hospice care center prior to determining that. They have requested information from hospice and a consultation will be placed to help family delineate options for their decision. . Family Conference Time (mins): 50 Family Conference Location: Consult Room Issues Discussed: * Palliative care role, purpose, approach * Additional medical, psychosocial, and spiritual history * Patients general health, functional status, and cognitive changes in the months leading up to the current hospitalization * Patient/family understanding of the current medical problems * Patient/family understanding of prognosis * Patients goals of care as best understood from advance directives and/or conversations and/or values * Current medical treatment options and benefits/burdens of those options * Likely scenarios comparing ongoing aggressive care with a transition to comfort measures only * Questions answered to the best of my ability * Palliative care contact information provided (Chastity Barton) Assessment and Plan Disease Oriented Problem List: (1) Hypertension (2) COPD (chronic obstructive pulmonary disease) (3) Hyponatremia (4) Chronic pain (5) Osteogenesis imperfecta Symptom Scale: (1) Diarrhea (2) Weakness (3) Confusion Pertinent Non-Medical Issues Psychosocial:He was born in [place], [place] and completed his high school education there. 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 He and his ex-, Darlene, moved to [place] in 1997, where they have lived since that time. Spiritual: He is Amish by steffi, rarely attends faith. Legal: No advance directives completed. No other legal issues identified. Ethical issues impacting care: None noted. . Important Contacts Son: Ezra Corona Son: Scar Corona Ex-: Darlene Corona . Prognosis His prognosis is very poor. 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 His left lung has shown significant consolidation since July 2017. He is at significant risk for continued complications and further decline. Due to his extremely fragile bones the family has determined that cardiac resuscitation is not advisable and has made him a DO NOT RESUSCITATE. . Code Status: No Code Plan PLAN: Legal decision maker: Per [place] statutes his 2 sons, Ezra and Scar would serve as legal proxies. Goals: Aggressive short of no code. CODE STATUS: DNR SYMPTOMS: * Diarrhea: He did have one large melanotic stool in the ED on admission however no further diarrhea has been noted since that time. * Weakness: Multifactorial to include severe hyponatremia, chronic bone disease with a history of multiple fractures and chronic pain. At this time he is intubated and sedated. If he does survive this hospitalization physical therapy services will be requested. * Confusion: Possibly due to severe electrolyte derangements with sodium of 114 and potassium of 2.7 on admission as well as pain medicine withdrawal as [facility]. SUMMARY: This is a 72-year-old male with a history of osteogenesis imperfecta, multiple previous fractures, bone deformities, COPD, hypertension and a previous history of alcoholism who presents with a GI bleed and metabolic derangements and functional decline. His family is willing to allow a trial of intubation to see if he will recover, however are considering compassionate withdrawal. It is specified by the intensivists that he is likely not to survive this hospitalization and would be at risk for continued complications and decline. Palliative care will continue to follow the patient during hospital course as condition evolves, to assist patient/decision-maker with understanding of their medical conditions, weighing benefits/burdens of treatment options, for clarification of goals of treatment. Additionally will assist with any symptoms of palliative concern. . (Chastity Barton) Time Spent Time Periods: 11: 00-11: 50 Total Floor Time (mins): 75 Face to Face Time (mins): 50 >50% Counseling/Coord of Care: Yes (Chastity Barton) Thank you for the opportunity to participate in the care of Mr. Corona. (Chastity Barton) Attestation To help prompt me to consider important information that might be impacting today's encounter and assessment, information from prior notes written by myself or my colleagues may have been "brought forward" into today's note. My signature on this note, however, is an attestation that I personally performed the exam, history, and/or decision-making noted today, and, unless otherwise indicated, the interactions with patient, family, and staff as well as the review of records all occurred today. I also attest that the listed assessment and stated plan reflect my best clinical judgment today based on the combination of historical information, prior notes, and today's exam/ interactions. When time spent is documented, it refers only to time spent today by the signer, or if indicated, combined time spent today by collaborating physician/nurse practitioner. . (Chastity Barton) Collaborating MD Comments Chart reviewed. Case discussed with palliative care MACHINE SPLITTER. Above MACHINE SPLITTER note reviewed and I concur. . (Matt Yanez MD) Chastity Barton Jan 16, 2018 11:16 Matt Yanez MD Jan 23, 2018 05:30
[2018-01-16] MEDS: PROPOFOL 1000 MG/100 ML INJ 100 ML IV PRN (15:17)
[2018-01-16] MEDS: fentaNYL DRIP 250 ML IV PRN (19:54)
[2018-01-17] VITALS (33 sets, daily range): BP systolic 122–169; BP diastolic 58–83; PULSE 44–80; RESP 15–24; TEMP 80.8–98.8; O2SAT 93–100
[2018-01-17] MEDS: INSULIN NovoLIN REGULAR SUPPLEMENTAL SCALE SQ SCH ×4 (01:04→18:09)
[2018-01-17] MEDS: PANTOPRAZOLE INJ 80 MG in SODIUM CHLORIDE 0.9% INJ 100 ML IV SCH (02:11)
[2018-01-17] MEDS: OCTREOTIDE INJ 500 MCG in SODIUM CHLORID 0.9% 500 ML INJ 500 ML IV SCH (02:12)
[2018-01-17] MEDS: PROPOFOL 1000 MG/100 ML INJ 100 ML IV PRN ×2 (02:13→17:58)
[2018-01-17] MEDS: CEFEPIME INJ 2,000 MG in SODIUM CHLORIDE 0.9% INJ 100 ML IV SCH ×3 (03:05→18:08)
[2018-01-17] MEDS: RESP: ALBUTEROL 2.5 MG/IPRATROPIUM 0.5 MG NEB (SCH) NEB ×6 (03:31→23:59)
[2018-01-17] MEDS: CHLORHEXIDINE GLUCONATE 2 % 1 PACK (2 CLOTHS) TOP SCH (03:59)
[2018-01-17 04:55] LABS: AUTOMATED NEUTROPHIL # 10.2 TH/MM3 (1.8-7.7); BASOPHIL % 0.2 % (0.0-2.0); HEMATOCRIT 27.6 % (39.0-51.0); HEMOGLOBIN 9.1 GM/DL (13.0-17.0); LYMPH % 3.8 % (9.0-44.0); LYMPHOCYTE # 0.4 TH/MM3 (1.0-4.8); MEAN CELL VOLUME 91.4 FL (80.0-100.0); MEAN CORPUSCULAR HEMOGLOBIN 29.9 PG (27.0-34.0); MEAN CORPUSCULAR HGB CONC 32.8 % (32.0-36.0); MEAN PLATELET VOLUME 7.4 FL (7.0-11.0); MONO % 3.2 % (0.0-8.0); MONOCYTE # 0.3 TH/MM3 (0-0.9); NEUT % 92.8 % (16.0-70.0); PLATELET COUNT 244 TH/MM3 (150-450); RED BLOOD COUNT 3.02 MIL/MM3 (4.50-5.90); RED CELL DISTRIBUTION WIDTH 15.9 % (11.6-17.2); WHITE BLOOD COUNT 10.9 TH/MM3 (4.0-11.0)
[2018-01-17 05:06] LABS: CHLORIDE 106 MEQ/L (98-107); SODIUM (NA) 139 MEQ/L (136-145)
[2018-01-17 05:13] LABS: ALBUMIN 2.2 GM/DL (3.4-5.0); ALT (GPT) 199 U/L (12-78); AST (GOT) 73 U/L (15-37); BICARBONATE 26.5 MEQ/L (21.0-32.0); BLOOD UREA NITROGEN 18 MG/DL (7-18); CALCIUM 8.3 MG/DL (8.5-10.1); CREATININE 0.57 MG/DL (0.60-1.30); GLOMERULAR FILTRATION RATE 140 ML/MIN (>89); GLUCOSE,RANDOM 133 MG/DL (74-106); TOTAL BILIRUBIN ADULT 0.9 MG/DL (0.2-1.0); TOTAL PROTEIN 4.8 GM/DL (6.4-8.2)
[2018-01-17 05:19] LABS: ALKALINE PHOSPHATASE 60 U/L (45-117)
[2018-01-17] MEDS: methylPREDNISolone SOD SUCC 125 MG/2 ML VIAL IV PUSH SCH (05:30)
--- NOTE | 2018-01-17 06:54 | HHI.CCPN ---
Subjective Remarks/Hospital Course Hospital Course: This is a 72yM with a reported history of COPD and osteogenesis imperfecta who presents for acute altered mental status and dark tarry stools. when he arrived , he was obtunded and so no additional information is available from him. His ex - who lives with him as well as his son are at bedside and provide most of the history. they state that [facility] goes to the [facility] and [facility] his multiple prior fractures that he has, and since that time, he has had a slow decline over the last week. about 1-2 days ago, his ex- noticed him having new dark black tarry stools. yesterday he was somewhat altered and confused, and she tried to get him to seek medical attention, but today he was more altered. He does have a remote history of etoh abuse, but they deny any etoh at all in many years. Of note, his ex- did state that at the [facility] last week, they said his sodium was very low, although she does not know how low it was. In the emergency department, he was initially hypotensive and given 2L NS ivf which improved his blood pressure. His hgb is 8.2. the last hgb we have is from 07/2017 when it was 13. He also had a large melanic bowel movement in the emergency department. His sodium is 114 and K 2.7 on initial BMP. Critical care medicine is consulted to evaluate and manage his acute encephalopathy, his severe metabolic derangements, and his GI bleeding. ROS is unobtainable due to his mental status. Subjective: 01/14: mental status improving. sodium manjeet again to 129 despite adding additional free water yesterday. will add 1 mcg ddavp to curtail rise. now appears euvolemic. hgb stable. GI saw and recommends EGD. 01/15: Patient developed progressive hypoxemic and hypercarbic respiratory failure. Placed on BiPAP at around 4 AM. No improvement in mental status or hypercarbia. On my exam patient is on BiPAP unresponsive, last ABG showed a pH of 7.23 PCO2 of 80, PO2 of 86 on 60% FiO2. Patient clearly not protecting airway. Chest x-ray shows volume loss in the left lung but this appears similar to x-ray done on 07/27/2017. I had a brief discussion with family. They are inclined to give him a chance with intubation and treatment of COPD. If there is no improvement in 3-4 days they are willing to consider compassionate withdrawal given patient's comorbidities and severe kyphoscoliosis and osteogenesis imperfecta. I intubated and placed patient on mechanical ventilation. 01/16: Gas exchange acceptable after intubation and mechanical ventilation. CXR today pending, left lung opacified on prior films. Will review today's film when available and consider therapeutic bronchoscopy. Hgb continues to decline, source appears to be upper GI. Two units rbcs ordered last evening, repeat Hgb pending. Osmolality and sodium rise acceptable, will continue to attenuate with 1/2 NS. It is unlikely to me that this patient survives this hospitalization owing to multiple co-morbidities. We will continue aggressive care to improve pulmonary function while family decides on long-term care plan. GI plans to perform EGD to confirm source but patient's instability may preclude. 01/17: Despite our best efforts he continues to deteriorate clinically. The left lung remains opacified but his oxygenation will not permit bronchoscopy. Same for EGD. Sadly we are probably just prolonging his natural . I will stop the octreotide and convert the protonix to BID dosing in an attempt to limit his fluid intake and weeping peripheral edema. He has quite appropriately been made DNR status by his son. The son appears to understand the terminal nature of this process. In summary, the patient is severely debilitated and unable to recover from this illness. Care limited to comfort measures is highly recommended. Objective Vital Signs Date Time Temp Pulse Resp B/P (MAP) Pulse Ox O2 Delivery O2 Flow Rate FiO2 01/17/18 05:00 80.8 50 16 155/71 (99) 99 01/17/18 04:35 40 01/16/18 19:00 Mechanical Ventilator 01/15/18 00:00 1.00 Intake and Output 01/17/18 01/17/18 01/18/18 08:00 16:00 00:00 Intake Total 700 ml Balance 700 ml Result Diagram: 01/17/18 0445 01/17/18 044 Objective Remarks gen: elderly male, lying in bed, on PRVC. heent: perrl. mucous membranes moist. sclerae pale. generally edematous. neck: trachea midline. orally intubated. no jvd. severe flexion deformity of the neck chest: barrel chest noted. Air entry diminished left lung clements. Comfortable on vent. cv: normal rate, irregularly irregular rhythm. afib. abd: soft, nontender, nondistended. no guarding. bs few. extr: tepid and well perfused. grossly edematous. no clubbing. distal pulses 2+. neuro: Patient is unresponsive. Withdraws to noxious stimuli. Otherwise no spontaneous movements noted. Will intermittently partially open his eyes to loud voice. A/P Assessment and Plan Assessment: 72yM with acute metabolic encephalopathy, acute hypoxemic and hypercarbic respiratory failure, acute GI bleed, and severe life-threatening hyponatremia. Intubated today for acute COPD exacerbation and possible pneumonia, sepsis. Needs endoscopy for GI bleeding. continue to trend h&h. sodium is Continue 1/2 NS. Monitor Na closely. Critically ill requiring close sodium and hgb monitoring to prevent morbidity and mortality. Prior to intubation I discussed with the family. If no improvement in respiratory status in the next 3-4 days they will consider compassionate withdrawal given extensive comorbidities Plan by systems: Neurologic: Acute metabolic encephalopathy Chronic pain from multiple fractures Osteogenesis imperfecta - secondary to hyponatremia and poor cerebral perfusion from GI bleeding, and hypercapnia - frequent neuro checks - Propofol and fentanyl for sedation and ventilator synchrony - Daily sedation vacation but keep as comfortable as possible. Respiratory: Acute hypoxemic and hypercarbic respiratory failure Acute COPD exacerbation Probable pneumonia Left lung volume loss -Intubated and placed on mechanical ventilation ACV 16/500/8 FiO2 100%-titrate to keep sat above 90% -DuoNeb every 4 hours scheduled and as needed -Taper IV Solu-Medrol 40 mg every 12 hours -Check sputum culture, empiric cefepime -elevated HOB -Left lung volume loss appears to be chronic, x-ray on 07/27/2017 looked similar -Hold CT of the chest, it will not change the patient's ultimate outcome Cardiovascular: Hypovolemic shock- resolved. atrial fibrillation - secondary to GI bleed. - s/p 2 liters NS, 2 units prbc. - 4 units crossmatch on hold - rate control acceptable. Renal: - keep ploo catheter today -- Strict I/Os FEN/GI: Life-threatening Hyponatremia Life-threatening hypokalemia- resolving. Acute protein calorie malnutrition- moderate Active GI bleed -Replace electrolytes per protocol - hypovolemic hyponatremia. - trend sodiums q6h, sodium correction now seems to be appropriate - goal of 10 meq/24h: Given hypovolemic shock and end-organ hypoperfusion and need for rapid blood and fluid administration from GI bleed, overcorrection may be unavoidable to prevent organ damage from shock. - ddavp 1mcg iv x 1 given to attenuate rapid Na rise. - GI consult-did not do endoscopy today due to tenuous respiratory status. Now being intubated consider endoscopy today. - NPO - d/c protonix and octreotide drips. Start protonix 40 bid. - Start TFs after EGD. Heme/ID: Acute anemia secondary to blood loss - serial h&h q6h -Monitor coags - daily cbc - no infectious etiology suspected at this time - no history of anticoagulant use. Endocrine: Hyperglycemia of critical illness -- SSI, medium scale, q6h Prophylaxis: GI Prophylaxis Protonix drip DVT Prophylaxis -- SCDs Hold pharmacologic DVT prophylaxis secondary to active GI bleed Lines: piv Polo 2 large-bore IVs at all times given active GI bleed. Dispo: Will remain in ICU. He is critically ill and deteriorating despite aggressive resuscitative measures. At this point and invasive procedures, including NG insertion, are more likely to cause harm than good. This patient will not survive this hospitalization no matter what interventions we provide. My major concern given his underlying bone disease is that we prevent unnecessary pain. Will continue propofol and fentanyl liberally and assure comfort while the family works with the Palliative Care team to form a plan for care. This patient remains critically ill with one or more organ systems which are or may become a threat to life. I have spent in excess of 35 minutes discontinuously in the care and management of this patient. This time is exclusive of procedures, and includes, but is not limited to, evaluation of the patient, review of the medical record, discussions with family, consultants, nursing staff, or respiratory therapy, and documentation in the medical record. Thaddeus Garza MD Jan 17, 2018 06:54
[2018-01-17] MEDS ORDERED: FUROSEMIDE 40 MG/4 ML VIAL IV PUSH ONE (07:00)
[2018-01-17] MEDS: PANTOPRAZOLE SODIUM 40 MG VIAL IV PUSH SCH ×2 (08:22→19:52)
[2018-01-17] MEDS: CHLORHEXIDINE 0.12% (ORAL KIT) 15 ML CUP MT SCH ×2 (08:23→20:00)
[2018-01-17] MEDS: methylPREDNISolone SOD SUCC 40 MG/1 ML VIAL IV PUSH SCH ×2 (09:49→20:04)
--- NOTE | 2018-01-17 17:30 | HHI.HCPN ---
Reason for visit a. To assist with evaluation and management of symptoms including: Diarrhea , weakness, confusion b. To assist medical decision maker(s) with: better understanding of current medical conditions; weighing benefits/burdens of medical treatment options; making medical treatment decisions. (Chastity Barton) Subjective/Interval History Patient seen to follow-up on symptom management and goals of care. Patient failed spontaneous breathing trial today, once placed on CPAP he took one breath and then went apneic. During sedation vacation today some spontaneous movement was seen turning head to voice, some eye opening, questionable hand squeezing to command which could not be duplicated. Family is at bedside receiving regular medical updates from the medical staff. Hospice is following to support family in decision-making. Clinically there are no significant changes. Vital signs remained stable, blood pressure 139/59, heart rate 54, respiratory rate 17, oxygen saturation 95 % on 40% FiO2, afebrile. He continues to receive Solu-Medrol, cefepime and DuoNeb for pulmonary therapy. He is lightly sedated on fentanyl 60 mcg/h and propofol, 12 mcg/kg/min. Current laboratory studies show WBC 10.9, hemoglobin 9.1, hematocrit 27.6, platelets 244, sodium 139, potassium 3.6, BUN 18, creatinine 0.57, glucose 133, AST 73, ALT 199, total protein 4.8, albumin 2.2. He remains on 80% FiO2. Sputum culture was positive for staph aureus MRSA. Architectural Wood Model Maker notes indicate a continued deterioration in spite of maximal medical therapy. His oxygenation is such that will not permit bronchoscopy or EGD, as he is requiring 80% FiO2 and has required as much as 100%. They are recommending comfort measures only and the family is considering that recommendation seriously. . Family/friend interactions Spoke with his ex- and caregiver of 30 years, Darlene and his sons, Ezra and Scar in the conference area and at their request spoke with the patient's sister via telephone for medical update and considered options. Questions were answered to the best of my ability and contact information was provided for any further questions or concerns. At this time the family is considering transition to hospice care center for extubation but would like to allow 1-2 days to be certain that he has no chance of recovery. Palliative care will continue to provide medical updates to the family and keep them apprised of his medical condition. . (Chastity Barton) Advance Directives Living Will: Never completed Health Care Surrogate: Never completed Durable Power of Timber Grader: Never completed (Chastity Barton) Advance Directive Specifics Health Care Surrogate(s): Not completed. . Documented care wishes: None completed. . (Chastity Barton) Objective Vital Signs Date Time Temp Pulse Resp B/P (MAP) Pulse Ox O2 Delivery O2 Flow Rate FiO2 01/17/18 15:00 54 17 139/59 (85) 95 01/17/18 14:51 100 40 01/17/18 14:00 58 23 126/58 (80) 93 01/17/18 14:00 58 01/17/18 13:00 66 17 153/77 (102) 94 01/17/18 12:12 97 40 01/17/18 12:00 50 01/17/18 12:00 98.7 50 18 135/67 (89) 96 01/17/18 12:00 60 01/17/18 11:00 50 16 139/66 (90) 94 01/17/18 10:29 95 40 01/17/18 10:00 50 01/17/18 10:00 50 16 137/63 (87) 96 01/17/18 09:00 52 24 156/66 (96) 97 01/17/18 08:00 60 01/17/18 08:00 48 17 160/82 (108) 99 01/17/18 08:00 45 01/17/18 07:33 100 40 01/17/18 07:00 97.8 56 16 154/70 (98) 99 01/17/18 07:00 99 Mechanical Ventilator 40 01/17/18 05:00 80.8 50 16 155/71 (99) 99 01/17/18 04:35 99 40 01/17/18 04:00 40 01/17/18 04:00 46 16 145/82 (103) 99 01/17/18 04:00 46 01/17/18 02:42 54 16 134/65 (88) 97 01/17/18 02:05 68 17 142/68 (92) 96 01/17/18 02:00 80 01/17/18 00:53 99 40 01/17/18 00:42 98.5 68 17 141/77 (98) 98 01/17/18 00:00 64 01/17/18 00:00 50 01/16/18 23:42 60 16 151/72 (98) 98 01/16/18 22:42 64 16 143/72 (95) 97 01/16/18 22:00 58 01/16/18 21:51 97 50 01/16/18 21:50 50 01/16/18 21:42 64 16 143/71 (95) 98 01/16/18 20:59 70 23 147/78 (101) 98 01/16/18 20:16 66 17 159/66 (97) 98 01/16/18 20:01 66 01/16/18 20:01 99.2 66 16 144/66 (92) 98 01/16/18 20:00 60 01/16/18 19:22 98 60 01/16/18 19:00 70 24 131/71 (91) 94 01/16/18 19:00 97 Mechanical Ventilator 80 01/16/18 18:30 97 60 01/16/18 18:16 70 25 139/67 (91) 96 01/16/18 18:01 62 20 132/66 (88) 99 01/16/18 18:00 54 01/16/18 17:46 64 17 146/64 (91) 98 01/16/18 17:31 68 20 134/64 (87) 97 01/16/18 17:31 99.9 68 20 134/64 (87) 97 01/16/18 17:16 68 31 137/61 (86) 93 18 17:16 68 31 137/61 (86) 93 Intake & Output 18 01/17/18 07:00 19:00 Intake Total 1950 ml 500 ml Balance 1950 ml 500 ml IV Total 1950 ml 500 ml Physical Exam CONSTITUTIONAL/GENERAL: This is an adequately nourished patient, intubated, sedated in no apparent distress. TUBES/LINES/DRAINS: Bilateral PIV's, ETT, Garcia catheter. ENT: Nose without bleeding or purulent drainage. Orally intubated, oral tissues moist. NECK: Trachea midline. Severe flexion deformity. CARDIOVASCULAR: Irregular rhythm, controlled rate, no rub murmur or gallop auscultated. RESPIRATORY/CHEST: Left with minimal breath sounds, right diminished without adventitious sounds. Barrel chest noted. GASTROINTESTINAL: Abdomen soft, nondistended. Bowel sounds hypoactive. GENITOURINARY: Without palpable bladder distension. Garcia catheter in place. MUSCULOSKELETAL: 2-3+ edema, no clubbing, palpable pulses. NEUROLOGICAL: Intubated, sedated. PSYCHIATRIC: Sedated. . (Chastity Barton) Diagnostic Tests Laboratory Laboratory Tests Test 01/14/18 21:25 01/15/18 02:30 01/15/18 04:00 01/15/18 04:45 Hemoglobin 8.9 GM/DL (13.0-17.0) 7.3 GM/DL (13.0-17.0) 8.1 GM/DL (13.0-17.0) Hematocrit 26.4 % (39.0-51.0) 21.7 % (39.0-51.0) 24.6 % (39.0-51.0) Sodium Level 133 MEQ/L (136-145) 135 MEQ/L (136-145) 134 MEQ/L (136-145) White Blood Count 15.6 TH/MM3 (4.0-11.0) Red Blood Count 2.65 MIL/MM3 (4.50-5.90) Mean Corpuscular Volume 92.7 FL (80.0-100.0) Mean Corpuscular Hemoglobin 30.7 PG (27.0-34.0) Mean Corpuscular Hemoglobin Concent 33.1 % (32.0-36.0) Red Cell Distribution Width 13.9 % (11.6-17.2) Platelet Count 273 TH/MM3 (150-450) Mean Platelet Volume 7.1 FL (7.0-11.0) Prothrombin Time 11.0 SEC (9.8-11.6) Prothromb Time International Ratio 1.1 RATIO Activated Partial Thromboplast Time 20.6 SEC (24.3-30.1) Blood Urea Nitrogen 25 MG/DL (7-18) Creatinine 0.62 MG/DL (0.60-1.30) Random Glucose 139 MG/DL (74-106) Calcium Level 7.9 MG/DL (8.5-10.1) Potassium Level 3.8 MEQ/L (3.5-5.1) Chloride Level 98 MEQ/L (98-107) Carbon Dioxide Level 32.8 MEQ/L (21.0-32.0) Anion Gap 3 MEQ/L (5-15) Estimat Glomerular Filtration Rate 127 ML/MIN (>89) Blood Gas Puncture Site RT RADIAL Blood Gas Patient Temperature 37.0 Blood Gas HCO3 32 mmol/L (22-26) Blood Gas Base Excess 4.1 mmol/L (-2-2) Blood Gas Oxygen Saturation 94 % (90-100) Arterial Blood pH 7.21 (7.380-7.420) Arterial Blood Partial Pressure CO2 82 mmHg (38-42) Arterial Blood Partial Pressure O2 91 mmHg (61-120) Arterial Blood Oxygen Content 10.7 Vol % (12.0-20.0) Arterial Blood Carboxyhemoglobin 2.2 % (0-4) Arterial Blood Methemoglobin 1.0 % (0-2) Blood Gas Hemoglobin 8.0 G/DL (12.0-16.0) Oxygen Delivery Device Non-Rebreathing Mask Blood Gas Liter Flow 15 L/M Test 01/15/18 08:50 01/15/18 09:10 01/15/18 14:32 01/15/18 14:35 Sodium Level 134 MEQ/L (136-145) 137 MEQ/L (136-145) Hemoglobin 7.8 GM/DL (13.0-17.0) 7.9 GM/DL (13.0-17.0) Hematocrit 23.7 % (39.0-51.0) 24.0 % (39.0-51.0) Blood Gas Puncture Site RT RADIAL Blood Gas Patient Temperature 37.0 Blood Gas HCO3 32 mmol/L (22-26) Blood Gas Base Excess 5.3 mmol/L (-2-2) Blood Gas Oxygen Saturation 95 % (90-100) Arterial Blood pH 7.23 (7.380-7.420) Arterial Blood Partial Pressure CO2 80 mmHg (38-42) Arterial Blood Partial Pressure O2 86 mmHg (61-120) Arterial Blood Oxygen Content 10.6 Vol % (12.0-20.0) Arterial Blood Carboxyhemoglobin 1.9 % (0-4) Arterial Blood Methemoglobin 0.8 % (0-2) Blood Gas Hemoglobin 7.9 G/DL (12.0-16.0) Oxygen Delivery Device BIPAP Blood Gas Ventilator Setting IPAP 12/EPAP 5 Blood Gas Inspired Oxygen 60 % Test 01/15/18 16:26 01/15/18 19:48 01/16/18 05:11 01/16/18 09:05 Blood Gas Puncture Site RT RADIAL RT RADIAL Blood Gas Patient Temperature 37.0 37.0 Blood Gas HCO3 31 mmol/L (22-26) 29 mmol/L (22-26) Blood Gas Base Excess 5.2 mmol/L (-2-2) 4.8 mmol/L (-2-2) Blood Gas Oxygen Saturation 97 % (90-100) 93 % (90-100) Arterial Blood pH 7.32 (7.380-7.420) 7.42 (7.380-7.420) Arterial Blood Partial Pressure CO2 62 mmHg (38-42) 46 mmHg (38-42) Arterial Blood Partial Pressure O2 162 mmHg (61-120) 67 mmHg (61-120) Arterial Blood Oxygen Content 11.1 Vol % (12.0-20.0) 12.3 Vol % (12.0-20.0) Arterial Blood Carboxyhemoglobin 1.9 % (0-4) 1.9 % (0-4) Arterial Blood Methemoglobin 0.9 % (0-2) 1.0 % (0-2) Blood Gas Hemoglobin 7.9 G/DL (12.0-16.0) 9.4 G/DL (12.0-16.0) Oxygen Delivery Device VENT PRVCAC VENTILATOR Blood Gas Ventilator Setting VT500/[id number]/[id number] PRVC/AC Blood Gas Inspired Oxygen 100 % 80 % Hemoglobin 6.9 GM/DL (13.0-17.0) 9.9 GM/DL (13.0-17.0) Hematocrit 19.8 % (39.0-51.0) 30.0 % (39.0-51.0) Sodium Level 140 MEQ/L (136-145) 140 MEQ/L (136-145) White Blood Count 19.8 TH/MM3 (4.0-11.0) Red Blood Count 3.30 MIL/MM3 (4.50-5.90) Mean Corpuscular Volume 90.9 FL (80.0-100.0) Mean Corpuscular Hemoglobin 30.0 PG (27.0-34.0) Mean Corpuscular Hemoglobin Concent 33.0 % (32.0-36.0) Red Cell Distribution Width 16.7 % (11.6-17.2) Platelet Count 248 TH/MM3 (150-450) Mean Platelet Volume 7.1 FL (7.0-11.0) Neutrophils (%) (Auto) 96.2 % (16.0-70.0) Lymphocytes (%) (Auto) 2.1 % (9.0-44.0) Monocytes (%) (Auto) 1.4 % (0.0-8.0) Eosinophils (%) (Auto) 0.1 % (0.0-4.0) Basophils (%) (Auto) 0.2 % (0.0-2.0) Neutrophils # (Auto) 19.0 TH/MM3 (1.8-7.7) Lymphocytes # (Auto) 0.4 TH/MM3 (1.0-4.8) Monocytes # (Auto) 0.3 TH/MM3 (0-0.9) Eosinophils # (Auto) 0.0 TH/MM3 (0-0.4) Basophils # (Auto) 0.0 TH/MM3 (0-0.2) CBC Comment DIFF FINAL Differential Comment Prothrombin Time 10.7 SEC (9.8-11.6) Prothromb Time International Ratio 1.1 RATIO Activated Partial Thromboplast Time 21.6 SEC (24.3-30.1) Blood Urea Nitrogen 15 MG/DL (7-18) Creatinine 0.55 MG/DL (0.60-1.30) Random Glucose 136 MG/DL (74-106) Total Protein 4.8 GM/DL (6.4-8.2) Albumin 2.2 GM/DL (3.4-5.0) Calcium Level 8.0 MG/DL (8.5-10.1) Alkaline Phosphatase 68 U/L (45-117) Aspartate Amino Transf (AST/SGOT) 79 U/L (15-37) Alanine Aminotransferase (ALT/SGPT) 179 U/L (12-78) Total Bilirubin 1.4 MG/DL (0.2-1.0) Potassium Level 3.7 MEQ/L (3.5-5.1) Chloride Level 104 MEQ/L (98-107) Carbon Dioxide Level 28.5 MEQ/L (21.0-32.0) Anion Gap 8 MEQ/L (5-15) Estimat Glomerular Filtration Rate 146 ML/MIN (>89) Test 01/16/18 15:20 01/17/18 04:45 Sodium Level 138 MEQ/L (136-145) 139 MEQ/L (136-145) White Blood Count 10.9 TH/MM3 (4.0-11.0) Red Blood Count 3.02 MIL/MM3 (4.50-5.90) Hemoglobin 9.1 GM/DL (13.0-17.0) Hematocrit 27.6 % (39.0-51.0) Mean Corpuscular Volume 91.4 FL (80.0-100.0) Mean Corpuscular Hemoglobin 29.9 PG (27.0-34.0) Mean Corpuscular Hemoglobin Concent 32.8 % (32.0-36.0) Red Cell Distribution Width 15.9 % (11.6-17.2) Platelet Count 244 TH/MM3 (150-450) Mean Platelet Volume 7.4 FL (7.0-11.0) Neutrophils (%) (Auto) 92.8 % (16.0-70.0) Lymphocytes (%) (Auto) 3.8 % (9.0-44.0) Monocytes (%) (Auto) 3.2 % (0.0-8.0) Eosinophils (%) (Auto) 0.0 % (0.0-4.0) Basophils (%) (Auto) 0.2 % (0.0-2.0) Neutrophils # (Auto) 10.2 TH/MM3 (1.8-7.7) Lymphocytes # (Auto) 0.4 TH/MM3 (1.0-4.8) Monocytes # (Auto) 0.3 TH/MM3 (0-0.9) Eosinophils # (Auto) 0.0 TH/MM3 (0-0.4) Basophils # (Auto) 0.0 TH/MM3 (0-0.2) CBC Comment AUTO DIFF Differential Comment AUTO DIFF CONFIRMED Platelet Estimate NORMAL (NORMAL) Platelet Morphology Comment NORMAL (NORMAL) Blood Urea Nitrogen 18 MG/DL (7-18) Creatinine 0.57 MG/DL (0.60-1.30) Random Glucose 133 MG/DL (74-106) Total Protein 4.8 GM/DL (6.4-8.2) Albumin 2.2 GM/DL (3.4-5.0) Calcium Level 8.3 MG/DL (8.5-10.1) Alkaline Phosphatase 60 U/L (45-117) Aspartate Amino Transf (AST/SGOT) 73 U/L (15-37) Alanine Aminotransferase (ALT/SGPT) 199 U/L (12-78) Total Bilirubin 0.9 MG/DL (0.2-1.0) Potassium Level 3.6 MEQ/L (3.5-5.1) Chloride Level 106 MEQ/L (98-107) Carbon Dioxide Level 26.5 MEQ/L (21.0-32.0) Anion Gap 7 MEQ/L (5-15) Estimat Glomerular Filtration Rate 140 ML/MIN (>89) (Chastity Barton) Result Diagram: 01/17/185 01/17/185 Microbiology Microbiology Date/Time Source Procedure Growth Status 01/15/18 19:35 Blood Peripheral Aerobic Blood Culture - Preliminary NO GROWTH IN 2 DAYS Resulted 01/15/18 19:35 Blood Peripheral Anaerobic Blood Culture - Preliminary NO GROWTH IN 2 DAYS Resulted 01/15/18 19:30 Blood Peripheral Aerobic Blood Culture - Preliminary NO GROWTH IN 2 DAYS Resulted 01/15/18 19:30 Blood Peripheral Anaerobic Blood Culture - Preliminary NO GROWTH IN 2 DAYS Resulted 01/15/18 16:00 Sputum Endotracheal Gram Stain - Final Resulted 01/15/18 16:00 Sputum Culture - Preliminary S. Aureus Mrsa Gram Negative Jacob Resulted Imaging Last Impressions Chest X-Ray 01/16/18 0600 Signed Impressions: Service Date/Time: Tuesday, January 16, 2018 01:05 - CONCLUSION: 1. Increasing parenchymal opacities in the right hemithorax. 2. Stable complete opacification left hemithorax Altaf Malave MD Head CT 01/13/18 0000 Signed Impressions: Service Date/Time: Saturday, January 13, 2018 07:54 - CONCLUSION: 1. Central cerebral atrophy. 2. Mild periventricular and subcortical white matter small vessel ischemic changes bilaterally. 3. No acute infarct, acute hemorrhage, mass effect or extra-axial fluid collections. Milan Mcgraw MD Procedures 01/13: Left radial arterial line placement 01/15: Endotracheal intubation due to hypoxemic and hypercarbic respiratory failure. . (Chastity Barton) Assessment and Plan Disease Oriented Problem List: (1) Hypertension (2) COPD (chronic obstructive pulmonary disease) (3) Hyponatremia (4) Chronic pain (5) Osteogenesis imperfecta Symptom Scale: (1) Diarrhea (2) Weakness (3) Confusion Pertinent Non-Medical Issues Psychosocial:He was born in [place], [place] and completed his high school education there. 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 He and his ex-, Darlene, moved to [place] in 1997, where they have lived since that time. Spiritual: He is Yazdanism by steffi, rarely attends christian. Legal: No advance directives completed. No other legal issues identified. Ethical issues impacting care: None noted. . Important Contacts Son: Ezra Corona Son: Scar Corona Ex-: Darlene Corona . Prognosis His prognosis is very poor. 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 His left lung has shown significant consolidation since July 2017. He is at significant risk for continued complications and further decline. Due to his extremely fragile bones the family has determined that cardiac resuscitation is not advisable and has made him a DO NOT RESUSCITATE. . Code Status: No Code Plan PLAN: Legal decision maker: Per [place] statutes his 2 sons, Ezra and Scar would serve as legal proxies. Goals: Aggressive short of no code. CODE STATUS: DNR SYMPTOMS: * Diarrhea: He did have one large melanotic stool in the ED on admission however no further diarrhea has been noted since that time. * Weakness: Multifactorial to include severe hyponatremia, chronic bone disease with a history of multiple fractures and chronic pain. At this time he is intubated and sedated. It is unlikely that he will survive this hospitalization. No further recommendations at this time. * Confusion: Possibly due to hypercarbic, hypoxemic respiratory failure, severe electrolyte derangements with sodium of 114 and potassium of 2.7 on admission as well as pain medicine withdrawal as [facility]. Palliative care will continue to follow the patient during hospital course as condition evolves, to assist patient/decision-maker with understanding of their medical conditions, weighing benefits/burdens of treatment options, for clarification of goals of treatment. Additionally will assist with any symptoms of palliative concern. . (Chastity Barton) Time Spent Time Periods: 15: 45-16: 15 Total Floor Time (mins): 50 Face to Face Time (mins): 30 >50% Counseling/Coord of Care: Yes (Chastity Barton) Collaborating MD Comments Chart reviewed. Case discussed with palliative care QUALITY ASSURANCE REPRESENTATIVE. Above QUALITY ASSURANCE REPRESENTATIVE note reviewed and I concur. . (Matt Yanez MD) Chastity Barton Jan 17, 2018 17:30 Matt Yanez MD Jan 23, 2018 05:41
[2018-01-18] VITALS (30 sets, daily range): BP systolic 46–146; BP diastolic 27–77; PULSE 50–118; RESP 0–24; TEMP 97.6–99; O2SAT 66–97
[2018-01-18] MEDS: CEFEPIME INJ 2,000 MG in SODIUM CHLORIDE 0.9% INJ 100 ML IV SCH ×3 (00:22→18:48)
[2018-01-18] MEDS: PROPOFOL 1000 MG/100 ML INJ 100 ML IV PRN ×3 (00:22→19:41)
[2018-01-18] MEDS: CHLORHEXIDINE GLUCONATE 2 % 1 PACK (2 CLOTHS) TOP SCH (03:21)
[2018-01-18] MEDS: RESP: ALBUTEROL 2.5 MG/IPRATROPIUM 0.5 MG NEB (SCH) NEB ×5 (03:27→19:13)
[2018-01-18 05:34] LABS: HEMATOCRIT 28.7 % (39.0-51.0)
[2018-01-18] MEDS: INSULIN NovoLIN REGULAR SUPPLEMENTAL SCALE SQ SCH ×4 (06:00→18:00)
[2018-01-18] MEDS: fentaNYL DRIP 250 ML IV PRN (07:04)
[2018-01-18] MEDS ORDERED: Vancomycin Consult Pharmacy 1 EA OTHER SCH (07:15)
--- NOTE | 2018-01-18 07:20 | HHI.CCPN ---
Subjective Remarks/Hospital Course Hospital Course: This is a 72yM with a reported history of COPD and osteogenesis imperfecta who presents for acute altered mental status and dark tarry stools. when he arrived , he was obtunded and so no additional information is available from him. His ex - who lives with him as well as his son are at bedside and provide most of the history. they state that [facility] his multiple prior [facility] that he has, and since that time, he has had a slow decline over the last week. about 1-2 days ago, his ex- noticed him having new dark black tarry stools. yesterday he was somewhat altered and confused, and she tried to get him to seek medical attention, but today he was more altered. He does have a remote history of etoh abuse, but they deny any etoh at all in many years. Of note, his ex- did state that at the [facility] last week, they said his sodium was very low, although she does not know how low it was. In the emergency department, he was initially hypotensive and given 2L NS ivf which improved his blood pressure. His hgb is 8.2. the last hgb we have is from 07/2017 when it was 13. He also had a large melanic bowel movement in the emergency department. His sodium is 114 and K 2.7 on initial BMP. Critical care medicine is consulted to evaluate and manage his acute encephalopathy, his severe metabolic derangements, and his GI bleeding. ROS is unobtainable due to his mental status. Subjective: 01/14: mental status improving. sodium manjeet again to 129 despite adding additional free water yesterday. will add 1 mcg ddavp to curtail rise. now appears euvolemic. hgb stable. GI saw and recommends EGD. 01/15: Patient developed progressive hypoxemic and hypercarbic respiratory failure. Placed on BiPAP at around 4 AM. No improvement in mental status or hypercarbia. On my exam patient is on BiPAP unresponsive, last ABG showed a pH of 7.23 PCO2 of 80, PO2 of 86 on 60% FiO2. Patient clearly not protecting airway. Chest x-ray shows volume loss in the left lung but this appears similar to x-ray done on 07/27/2017. I had a brief discussion with family. They are inclined to give him a chance with intubation and treatment of COPD. If there is no improvement in 3-4 days they are willing to consider compassionate withdrawal given patient's comorbidities and severe kyphoscoliosis and osteogenesis imperfecta. I intubated and placed patient on mechanical ventilation. 01/16: Gas exchange acceptable after intubation and mechanical ventilation. CXR today pending, left lung opacified on prior films. Will review today's film when available and consider therapeutic bronchoscopy. Hgb continues to decline, source appears to be upper GI. Two units rbcs ordered last evening, repeat Hgb pending. Osmolality and sodium rise acceptable, will continue to attenuate with 1/2 NS. It is unlikely to me that this patient survives this hospitalization owing to multiple co-morbidities. We will continue aggressive care to improve pulmonary function while family decides on long-term care plan. GI plans to perform EGD to confirm source but patient's instability may preclude. 01/17: Despite our best efforts he continues to deteriorate clinically. The left lung remains opacified but his oxygenation will not permit bronchoscopy. Same for EGD. Sadly we are probably just prolonging his natural . I will stop the octreotide and convert the protonix to BID dosing in an attempt to limit his fluid intake and weeping peripheral edema. He has quite appropriately been made DNR status by his son. The son appears to understand the terminal nature of this process. In summary, the patient is severely debilitated and unable to recover from this illness. Care limited to comfort measures is highly recommended. 01/18: No improvement in clinical condition. Patient is severely debilitated and recovery from this illness, let alone weaning from ventilator, is highly unlikely. We will continue to treat aggressively however this patient is in an end-stage disease process complicated considerably by his chronic bone disease. I will add vancomycin to his lung coverage pending speciation. Update 1650 hours.: I just spoke with his son Ezra and they have decided to progress immediately to comfort measures. Objective Vital Signs Date Time Temp Pulse Resp B/P (MAP) Pulse Ox O2 Delivery O2 Flow Rate FiO2 01/18/18 07:00 95 Mechanical Ventilator 50 01/18/18 06:00 50 16 110/62 (78) 01/18/18 04:00 98.8 01/15/18 00:00 1.00 Intake and Output 01/18/18 01/18/18 01/19/18 08:00 16:00 00:00 Intake Total 100 ml Output Total 550 ml Balance -450 ml Result Diagram: 01/18/18 0454 01/17/18 0445 Objective Remarks gen: elderly male, lying in bed, on PRVC. heent: perrl. mucous membranes moist. sclerae pale. generally edematous. neck: trachea midline. orally intubated. no jvd. severe flexion deformity of the neck chest: barrel chest noted. Air entry diminished left lung clements. Comfortable on vent. cv: normal rate, irregularly irregular rhythm. afib. abd: soft, nontender, nondistended. no guarding. bs few. extr: tepid and well perfused. grossly edematous. no clubbing. distal pulses 2+. neuro: Patient is unresponsive. Withdraws to noxious stimuli. Otherwise no spontaneous movements noted. Will intermittently partially open his eyes to loud voice. A/P Assessment and Plan Assessment: 72yM with acute metabolic encephalopathy, acute hypoxemic and hypercarbic respiratory failure, acute GI bleed, and severe life-threatening hyponatremia. Intubated today for acute COPD exacerbation and possible pneumonia, sepsis. Needs endoscopy for GI bleeding. continue to trend h&h. sodium is Continue 1/2 NS. Monitor Na closely. Critically ill requiring close sodium and hgb monitoring to prevent morbidity and mortality. Prior to intubation I discussed with the family. If no improvement in respiratory status in the next 3-4 days they will consider compassionate withdrawal given extensive comorbidities Plan by systems: Neurologic: Acute metabolic encephalopathy Chronic pain from multiple fractures Osteogenesis imperfecta - secondary to hyponatremia and poor cerebral perfusion from GI bleeding, and hypercapnia - frequent neuro checks - Propofol and fentanyl for sedation and ventilator synchrony - Daily sedation vacation but keep as comfortable as possible. Respiratory: Acute hypoxemic and hypercarbic respiratory failure Acute COPD exacerbation Probable pneumonia Left lung volume loss -Intubated and placed on mechanical ventilation ACV 16/500/8 FiO2 100%-titrate to keep sat above 90% -DuoNeb every 4 hours scheduled and as needed -Taper IV Solu-Medrol 40 mg every 12 hours -Check sputum culture, empiric cefepime -elevated HOB -Left lung volume loss appears to be chronic, x-ray on 07/27/2017 looked similar -Hold CT of the chest, it will not change the patient's ultimate outcome Cardiovascular: Hypovolemic shock- resolved. atrial fibrillation - secondary to GI bleed. - s/p 2 liters NS, 2 units prbc. - 4 units crossmatch on hold - rate control acceptable. Renal: - keep polo catheter today -- Strict I/Os FEN/GI: Life-threatening Hyponatremia Life-threatening hypokalemia- resolving. Acute protein calorie malnutrition- moderate Active GI bleed -Replace electrolytes per protocol - hypovolemic hyponatremia. - trend sodiums q6h, sodium correction now seems to be appropriate - goal of 10 meq/24h: Given hypovolemic shock and end-organ hypoperfusion and need for rapid blood and fluid administration from GI bleed, overcorrection may be unavoidable to prevent organ damage from shock. - ddavp 1mcg iv x 1 given to attenuate rapid Na rise. - GI consult-did not do endoscopy today due to tenuous respiratory status. Now being intubated consider endoscopy today. - NPO - d/c protonix and octreotide drips. Start protonix 40 bid. - Start TFs after EGD. Heme/ID: Acute anemia secondary to blood loss - serial h&h q6h -Monitor coags - daily cbc - no infectious etiology suspected at this time - no history of anticoagulant use. Endocrine: Hyperglycemia of critical illness -- SSI, medium scale, q6h Prophylaxis: GI Prophylaxis Protonix drip DVT Prophylaxis -- SCDs Hold pharmacologic DVT prophylaxis secondary to active GI bleed Lines: piv Polo 2 large-bore IVs at all times given active GI bleed. Dispo: He is critically ill and deteriorating despite aggressive resuscitative measures. At this point and invasive procedures, including NG insertion, are more likely to cause harm than good. This patient will not survive this hospitalization no matter what interventions we provide. My major concern given his underlying bone disease is that we prevent unnecessary pain. Will continue propofol and fentanyl liberally and assure comfort while the family works with the Palliative Care team to form a plan for care. I have expressed clearly of the terminal nature of this disease process to his son Ezra. By all appearances he seems to understand. This patient remains critically ill with one or more organ systems which are or may become a threat to life. I have spent in excess of 35 minutes discontinuously in the care and management of this patient. This time is exclusive of procedures, and includes, but is not limited to, evaluation of the patient, review of the medical record, discussions with family, consultants, nursing staff, or respiratory therapy, and documentation in the medical record. Thaddeus Garza MD Jan 18, 2018 07:20
[2018-01-18] MEDS: PANTOPRAZOLE SODIUM 40 MG VIAL IV PUSH SCH ×2 (07:47→19:40)
[2018-01-18] MEDS: CHLORHEXIDINE 0.12% (ORAL KIT) 15 ML CUP MT SCH ×2 (08:00→19:41)
[2018-01-18] MEDS: VANCOMYCIN INJ 1,250 MG in SODIUM CHLOR 0.9% 250 ML INJ 250 ML IV SCH ×2 (08:29→21:00)
[2018-01-18] MEDS: methylPREDNISolone SOD SUCC 40 MG/1 ML VIAL IV PUSH SCH ×2 (09:33→21:00)
--- NOTE | 2018-01-18 19:22 | HHI.HCPN ---
When I arrived, the family had gathered and was discussing changing the code status to FULL CODE, as the patient was able to respond to them today. During the discussion, the charge nurse entered the room and advised the family that the patient had a significant, acute decline and was now requiring 100% FI02. Dr. Garza had been contacted and was discussing condition with the nurse. A clarification of CODE STATUS was required emergently. After a short discussion , the brothers, Ezra and Scar, who are the decision makers, decided not to proceed with a FULL CODE due to the potential for severe damage to their father from CPR, given his progressive osteogenesis imperfecta. Family was escorted to the room to spend time with the patient during his acute decline. D/W Arseniog. RN, pt. RN and BENJIE Wilson who was assisting with patient care. (Chastity Barton) Chart reviewed. Case discussed with palliative care TERMINAL CARMAN. Above TERMINAL CARMAN note reviewed and I concur. . (Matt Yanez MD) Chastity Barton Jan 18, 2018 19:22 Matt Yanez MD Jan 23, 2018 05:46
--- NOTE | 2018-01-19 06:34 | HHI.DS ---
Discharge Summary Admission Date Jan 13, 2018 at 07:27 Discharge Date: Jan 18, 2018 Admitting Diagnosis (1) Acute on chronic respiratory failure with hypoxemia ICD Code: J96.21 - Acute and chronic respiratory failure with hypoxia Diagnosis: Principal Status: Acute (2) Upper gastrointestinal hemorrhage ICD Code: K92.2 - Gastrointestinal hemorrhage, unspecified Diagnosis: Principal Status: Acute (3) Metabolic encephalopathy ICD Code: G93.41 - Metabolic encephalopathy Diagnosis: Principal Status: Acute (4) Hypovolemic shock ICD Code: R57.1 - Hypovolemic shock Diagnosis: Principal Status: Acute (5) Acute hyponatremia ICD Code: E87.1 - Hypo-osmolality and hyponatremia Diagnosis: Secondary (6) Osteogenesis imperfecta ICD Code: Q78.0 - Osteogenesis imperfecta Diagnosis: Secondary (7) COPD (chronic obstructive pulmonary disease) ICD Code: J44.9 - Chronic obstructive pulmonary disease, unspecified Diagnosis: Principal Status: Chronic Brief History This is a 72yM with a reported history of COPD and osteogenesis imperfecta who presents for acute altered mental status and dark tarry stools. when he arrived , he was obtunded and so no additional information is available from him. His ex - who lives with him as well as his son are at bedside and provide most of the history. they state that [facility] his [facility] that he has, and since that time, he has had a slow decline over the last week. about 1-2 days ago, his ex- noticed him having new dark black tarry stools. yesterday he was somewhat altered and confused, and she tried to get him to seek medical attention, but today he was more altered. He does have a remote history of etoh abuse, but they deny any etoh at all in many years. Of note, his ex- did state that at the [facility] last week, they said his sodium was very low, although she does not know how low it was. In the emergency department, he was initially hypotensive and given 2L NS ivf which improved his blood pressure. His hgb is 8.2. the last hgb we have is from 07/2017 when it was 13. He also had a large melanic bowel movement in the emergency department. His sodium is 114 and K 2.7 on initial BMP. Critical care medicine is consulted to evaluate and manage his acute encephalopathy, his severe metabolic derangements, and his GI bleeding. ROS is unobtainable due to his mental status. CBC/BMP: 01/18/18 1944 01/17/18 0443 Significant Findings Laboratory Tests Test 01/16/18 09:05 01/16/18 15:20 01/17/18 04:45 01/18/18 04:54 White Blood Count 19.8 TH/MM3 (4.0-11.0) Red Blood Count 3.30 MIL/MM3 (4.50-5.90) 3.02 MIL/MM3 (4.50-5.90) Hemoglobin 9.9 GM/DL (13.0-17.0) 9.1 GM/DL (13.0-17.0) 10.0 GM/DL (13.0-17.0) Hematocrit 30.0 % (39.0-51.0) 27.6 % (39.0-51.0) 28.7 % (39.0-51.0) Neutrophils (%) (Auto) 96.2 % (16.0-70.0) 92.8 % (16.0-70.0) Lymphocytes (%) (Auto) 2.1 % (9.0-44.0) 3.8 % (9.0-44.0) Neutrophils # (Auto) 19.0 TH/MM3 (1.8-7.7) 10.2 TH/MM3 (1.8-7.7) Lymphocytes # (Auto) 0.4 TH/MM3 (1.0-4.8) 0.4 TH/MM3 (1.0-4.8) Activated Partial Thromboplast Time 21.6 SEC (24.3-30.1) Creatinine 0.55 MG/DL (0.60-1.30) 0.57 MG/DL (0.60-1.30) Random Glucose 136 MG/DL (74-106) 133 MG/DL (74-106) Total Protein 4.8 GM/DL (6.4-8.2) 4.8 GM/DL (6.4-8.2) Albumin 2.2 GM/DL (3.4-5.0) 2.2 GM/DL (3.4-5.0) Calcium Level 8.0 MG/DL (8.5-10.1) 8.3 MG/DL (8.5-10.1) Aspartate Amino Transf (AST/SGOT) 79 U/L (15-37) 73 U/L (15-37) Alanine Aminotransferase (ALT/SGPT) 179 U/L (12-78) 199 U/L (12-78) Total Bilirubin 1.4 MG/DL (0.2-1.0) PE at Discharge . Hospital Course Hospital Course: This is a 72yM with a reported history of COPD and osteogenesis imperfecta who presents for acute altered mental status and dark tarry stools. when he arrived , he was obtunded and so no additional information is available from him. His ex - who lives with him as well as his son are at bedside and provide most of the history. they state that [facility] his [facility] prior [facility] that he has, and since that time, he has had a slow decline over the last week. about 1-2 days ago, his ex- noticed him having new dark black tarry stools. yesterday he was somewhat altered and confused, and she tried to get him to seek medical attention, but today he was more altered. He does have a remote history of etoh abuse, but they deny any etoh at all in many years. Of note, his ex- did state that at the [facility] last week, they said his sodium was very low, although she does not know how low it was. In the emergency department, he was initially hypotensive and given 2L NS ivf which improved his blood pressure. His hgb is 8.2. the last hgb we have is from 07/2017 when it was 13. He also had a large melanic bowel movement in the emergency department. His sodium is 114 and K 2.7 on initial BMP. Critical care medicine is consulted to evaluate and manage his acute encephalopathy, his severe metabolic derangements, and his GI bleeding. ROS is unobtainable due to his mental status. Subjective: 01/14: mental status improving. sodium manjeet again to 129 despite adding additional free water yesterday. will add 1 mcg ddavp to curtail rise. now appears euvolemic. hgb stable. GI saw and recommends EGD. 01/15: Patient developed progressive hypoxemic and hypercarbic respiratory failure. Placed on BiPAP at around 4 AM. No improvement in mental status or hypercarbia. On my exam patient is on BiPAP unresponsive, last ABG showed a pH of 7.23 PCO2 of 80, PO2 of 86 on 60% FiO2. Patient clearly not protecting airway. Chest x-ray shows volume loss in the left lung but this appears similar to x-ray done on 07/27/2017. I had a brief discussion with family. They are inclined to give him a chance with intubation and treatment of COPD. If there is no improvement in 3-4 days they are willing to consider compassionate withdrawal given patient's comorbidities and severe kyphoscoliosis and osteogenesis imperfecta. I intubated and placed patient on mechanical ventilation. 01/16: Gas exchange acceptable after intubation and mechanical ventilation. CXR today pending, left lung opacified on prior films. Will review today's film when available and consider therapeutic bronchoscopy. Hgb continues to decline, source appears to be upper GI. Two units rbcs ordered last evening, repeat Hgb pending. Osmolality and sodium rise acceptable, will continue to attenuate with 1/2 NS. It is unlikely to me that this patient survives this hospitalization owing to multiple co-morbidities. We will continue aggressive care to improve pulmonary function while family decides on long-term care plan. GI plans to perform EGD to confirm source but patient's instability may preclude. 01/17: Despite our best efforts he continues to deteriorate clinically. The left lung remains opacified but his oxygenation will not permit bronchoscopy. Same for EGD. Sadly we are probably just prolonging his natural . I will stop the octreotide and convert the protonix to BID dosing in an attempt to limit his fluid intake and weeping peripheral edema. He has quite appropriately been made DNR status by his son. The son appears to understand the terminal nature of this process. In summary, the patient is severely debilitated and unable to recover from this illness. Care limited to comfort measures is highly recommended. 01/18: No improvement in clinical condition. Patient is severely debilitated and recovery from this illness, let alone weaning from ventilator, is highly unlikely. We will continue to treat aggressively however this patient is in an end-stage disease process complicated considerably by his chronic bone disease. I will add vancomycin to his lung coverage pending speciation. Update 1650 hours.: I just spoke with his son Ezra and they have decided to progress immediately to comfort measures. Patient at 2151 hours of cardiac standstill after prolonged illness complicated by respiratory failure. Pt Condition on Discharge: Deteriorating Thaddeus Garza MD Jan 19, 2018 06:34
[2018-01-19] MEDS ORDERED: PHARMACY ORDERED LAB ONE (20:45)
== END 2018-01-18 21:51 | disposition expired | DRG 377 ==
LOC: PHED 05:40 → PHEDA 07:27 → PHICU 08:04
PROVIDERS: ADMIT Internal Medicine Critical Care Medicine; ATTEND Internal Medicine Critical Care Medicine
PROC: 30233N1 Transfusion of Nonautologous Red Blood Cells into Peripheral Vein, Percutaneous Approach (ICD-10-PCS; principal; 2018-01-13)
PROC: 03HY32Z Insertion of Monitoring Device into Upper Artery, Percutaneous Approach (ICD-10-PCS; 2018-01-13)
PROC: 5A1945Z Respiratory Ventilation, 24-96 Consecutive Hours (ICD-10-PCS; 2018-01-15)
PROC: 0BH17EZ Insertion of Endotracheal Airway into Trachea, Via Natural or Artificial Opening (ICD-10-PCS; 2018-01-15)
PROC: 5A09357 Assistance with Respiratory Ventilation, Less than 24 Consecutive Hours, Continuous Positive Airway Pressure (ICD-10-PCS; 2018-01-15)
DX: K92.2 Gastrointestinal hemorrhage, unspecified (principal); G93.41 Metabolic encephalopathy; R57.1 Hypovolemic shock; J18.9 Pneumonia, unspecified organism; E44.0 Moderate protein-calorie malnutrition; J96.02 Acute respiratory failure with hypercapnia; J96.01 Acute respiratory failure with hypoxia; J44.0 Chronic obstructive pulmonary disease with (acute) lower respiratory infection; I48.91 Unspecified atrial fibrillation; R00.1 Bradycardia, unspecified; J44.1 Chronic obstructive pulmonary disease with (acute) exacerbation; E87.1 Hypo-osmolality and hyponatremia; Q78.0 Osteogenesis imperfecta; D62 Acute posthemorrhagic anemia; K92.1 Melena; G89.29 Other chronic pain; I10 Essential (primary) hypertension; E78.5 Hyperlipidemia, unspecified; M41.9 Scoliosis, unspecified; E87.6 Hypokalemia; R73.9 Hyperglycemia, unspecified; Z66 Do not resuscitate; Z51.5 Encounter for palliative care; H91.90 Unspecified hearing loss, unspecified ear; M19.90 Unspecified osteoarthritis, unspecified site; R19.7 Diarrhea, unspecified; Z87.891 Personal history of nicotine dependence
CPT/HCPCS: 31500; 36430; 36600; 51702; 70450; 71045; 76937; 80048; 80053; 80307; 81001; 82140; 82550; 82805; 82948; 83605; 83880; 83930; 83935; 84132; 84134; 84295; 84300; 84443; 84484; 85014; 85018; 85025; 85027; 85610; 85730; 86403; 86850; 86900; 86901; 86920; 87040; 87070; 87077; 87147; 87186; 87205; 87641; 93005; 94002; 94003; 94640; 94664; 94667; 96360; C9113; J0692; J1940; J2250; J2354; J2597; J2920; J2930; J3010; J3370; J3480; J7030; J7040; J7050; P9016